=== PATIENT | female | born 2000 | race Caucasian/White ===

== ENCOUNTER → 2019-06-26 08:18 | Outpatient (CLI) | payer OTHER, SELFPAY ==
--- NOTE | 2019-06-26 08:25 | US_ITS ---
PROCEDURE: US ABDOMEN LIMITED CLINICAL INDICATION: EPIGASTRIC PAIN Nausea COMPARISON: No exams were available for comparison FINDINGS: PANCREAS: Unremarkable. No obvious mass or abnormal fluid collection. No ductal dilatation LIVER: No focal liver lesions demonstrated. Homogeneous echogenicity. No intrahepatic biliary ductal dilatation evident. There is appropriate direction of blood flow within a non dilated portal vein RIGHT KIDNEY: Unremarkable. Normal size and echogenicity. No hydronephrosis GALLBLADDER: There is a small amount of sludge in the gallbladder. There are no gallstones. There is no biliary ductal dilatation common bile duct 2.2 millimeters. IMPRESSION: Small amount of sludge in the gallbladder. Otherwise unremarkable limited abdominal ultrasound. Dictated by: Freeman Baum 06/26/2019 10:26 Electronically signed by Freeman Baum in [facility] 06/26/2019 10:26
--- NOTE | 2019-06-26 08:25 | US_ITS ---
PROCEDURE: US TRANSVAGINAL CLINICAL INDICATION: CYST OF OVARY COMPARISON: No exams were available for comparison FINDINGS: UTERUS: 6.3 x 5cmx 4cm with a combined endometrial thickness of 3mm LEFT OVARY: [id number] with a volume of 2.9ml. follicular cysts of the left ovary are noted. RIGHT OVARY: 3cmx [id number] with a volume of 6.1ml. Complicated right ovarian cyst 1.4 x 1.0 x 1.4 centimeters is noted. It contains some internal echoes. Functional cyst is favored in a patient this age. There is no abnormal adnexal mass or fluid collection. IMPRESSION: Complicated right ovarian cyst probably functional. Dictated by: Freeman Baum 06/26/2019 10:23 Electronically signed by Freeman Baum in [facility] 06/26/2019 10:23
--- NOTE | 2019-06-26 08:26 | FL_ITS ---
PROCEDURE: FL UPPER GI W AIR CLINICAL INDICATION: EPIGASTRIC PAIN COMPARISON: No exams were available for comparison TECHNIQUE: FLUOROSCOPY TIME : 1 minutes 31 seconds FINDINGS: The esophagus, stomach, and duodenum have an unremarkable appearance.There is no evidence of hiatal hernia. No ulcer or mass evident. No mucosal abnormalities apparent. There is normal peristalsis. The duodenal C-loop is nondisplaced. No gastroesophageal reflux could be elicited. IMPRESSION: Exam within normal limits. Dictated by: Freeman Baum 06/26/2019 10:12 Electronically signed by Freeman Baum in [facility] 06/26/2019 10:12
== END ==
PROVIDERS: PCP Family Medicine; Visit Provider Family Medicine
DX: R10.13 Epigastric pain (principal); N83.209 Unspecified ovarian cyst, unspecified side
CPT/HCPCS: 74246; 76705; 76830

== ENCOUNTER 2019-10-02 19:25 | Emergency (ER) | payer OTHER, SELFPAY ==
[2019-10-02 19:39] VITALS: BP 134/97; PULSE 102; RESP 20; TEMP 37.1; O2SAT 99; BMI 33.3
--- NOTE | 2019-10-02 19:50 | HMH.EDUTC ---
[facility] [place] Disposition Clinical Impression: Gastroenteritis Disposition: Home, Self-Care Condition on Discharge: Good Instructions: Viral Gastroenteritis, DI for Viral Gastroenteritis -- Adult Additional Instructions: Drink plenty of fluids. Take tylenol or ibuprofen for pain or fever. Take the medications as directed. Follow up with your regular doctor. GO TO THE ER FOR ANY WORSENING SYMPTOMS Prescriptions: Ondansetron [Zofran 4mg ODT] 4 mg PO Q8HP PRN #10 tab.rapdis PRN Reason: Nausea Transmission Status: Received by [facility] #[id number] Referrals: Derek Paiz MD [Primary Care Provider] - Time of Disposition: 20:08 Medical Decision Making - Medical Records Medical records reviewed: No: I reviewed the patient's medical records. - Dimitris Inquiry Pt receiving controlled substance: No Vital Signs: 10/02/19 19:39 10/02/19 20:09 Temperature 98.8 F 98.8 F Temperature Source Oral Pulse Rate 102 H Pulse Rate [Right Brachial] 102 H Respiratory Rate 20 20 Blood Pressure 134/97 H Blood Pressure [Right Arm] 134/97 H Blood Pressure Mean [Right Arm] 109 Blood Pressure Source [Right Arm] Automatic Cuff Blood Pressure Position [Right Arm] Sitting 02 Sat by Pulse Oximetry 99 Oxygen Delivery Method Room Air - Lab Data Lab results reviewed: Yes: I reviewed the patient's lab results. Lab Results 10/02/19 19:45: Strep Scn Rapid Clinic Negative Orders (Tests/Meds): ED MEDICATIONS Discontinued Medications Generic Name Dose Route Start Last Admin Trade Name Freq PRN Reason Stop Dose Admin Ondansetron HCl 4 mg 10/02/19 20:06 10/02/19 20:09 Zofran 4mg Odt SL 10/02/19 20:07 4 mg ONCE ONE Administration ORDERS Category Date Time Status Strep Screen Confirmation Stat Micro 10/02/19 19:[address] 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 by RN): PATIENT C/O FEVER, HEADACHE, VOMITING AND DIARRHEA X 3 DAYS. NO KNOWN SICK CONTACTS HEENT Symptoms (Recalled from RN notes): Yes Resp Symptoms (Recalled from RN notes): No Skin Symptoms (Recalled from RN notes): No MS Symptoms (Recalled from RN notes): No Functional Status (Recalled from RN notes): WNL - History of Present Illness Provider Complaint: She states that for the past 3 days she has ran a fever up to 99.6. She has also felt bad and had n/v/d. She denies any abdominal pain. - Related Data Home Medications Medication Instructions Recorded Confirmed Buspirone HCl [Buspar 10mg 10 mg PO BID 10/02/19 10/02/19 tablet] Fluoxetine HCl [Prozac] 40 mg PO DAILY 10/02/19 10/02/19 Levothyroxine Sodium 50 mcg PO DAILY 10/02/19 10/02/19 [Levothyroxine 50mcg (0.05mg) Tab] Quetiapine Fumarate [Seroquel 50 50 mg PO HS 10/02/19 10/02/19 mg Tablets] Previous Rx's Medication Instructions Recorded Ondansetron [Zofran 4mg ODT] 4 mg PO Q8HP PRN #10 tab.rapdis 10/02/19 Allergies Allergy/AdvReac Type Severity Reaction Status Date / Time No Known Allergies Allergy Verified 07/09/19 08:53 - Worker's Comp Is this a Worker's Comp case?: No [facility] History - Hepatitis A Screen Drug use history?: No High risk sexual behaviors?: No History of sexually transmitted infection?: No Currently employed?: No Childcare worker?: No Do you have indoor plumbing?: Yes Do you have electricity?: Yes Attestation statement:: This patient has been screened for Hepatitis A risk factors. I have reviewed the patient's past medical history: Yes Medical History: Reports:: Asthma, Depression Denies:: Diabetes Mellitus Type 2, Gastroesophageal Reflux Disease(GERD), Gastrointestinal Bleed, Hypertension Comment: DEPO-PROVERA Laterality Cases: Bilateral: Tonsillectomy Other Surgeries: Yes: No Previous
[2019-10-02 20:01] LABS: UTC Strep Screen (Rapid) Negative (Negative)
[2019-10-02 20:09] VITALS: BP 134/97; PULSE 102; RESP 20; TEMP 37.1; O2SAT 99
== END 2019-10-02 20:13 | disposition home or self-care (01) ==
PROVIDERS: Emergency Provider Nurse Practitioner Family; PCP Family Medicine
DX: K52.9 Noninfective gastroenteritis and colitis, unspecified (principal); F33.1 Major depressive disorder, recurrent, moderate; J45.909 Unspecified asthma, uncomplicated
CPT/HCPCS: 87880; 99201

== ENCOUNTER → 2019-10-07 14:50 | Outpatient (CLI) | payer OTHER, SELFPAY ==
[2019-10-07 15:06] LABS: Basophils # 0.1 K/mm3 (0-0.2); Basophils % 0.6 % (0.1-2.0); Eosinophils # 0.4 K/mm3 (0.0-0.4); Eosinophils % 4.3 % (0.1-12.0); Hematocrit 42.1 % (37.0-47.0); Hemoglobin 13.6 g/dL (12.2-16.2); Lymphocytes # 1.9 K/mm3 (0.7-4.5); Lymphocytes % 21.6 % (10-50); Mean Corpuscular HGB Conc 32.2 g/dL (31.8-35.4); Mean Corpuscular Hemoglobin 25.6 pg (27.0-31.2); Mean Corpuscular Volume 79.4 fl (81-99); Mean Platelet Volume 7.4 fl (7.4-10.4); Monocytes # 0.5 K/mm3 (0.1-1.0); Monocytes % 5.2 % (1.7-9.3); Neutrophils # 6.1 K/mm3 (1.8-7.8); Neutrophils % 68.4 % (37.0-80.0); Platelet Count 338 K/mm3 (142-424); White Blood Count 8.9 K/mm3 (4.8-10.8)
[2019-10-07 15:49] LABS: Chloride 106 mmol/L (98-107); Sodium 138 mmol/L (136-145)
[2019-10-07 15:50] LABS: Potassium 4.4 mmoL/L (3.5-5.1)
[2019-10-07 15:52] LABS: Alanine Aminotransferase 28 U/L (12-78); Albumin Level 4.3 g/dl (3.5-5.0); Albumin/Globulin Ratio 1.4 (1.1-1.8); Alkaline Phosphatase 130 U/L (38-126); Anion Gap 9.4 mEq/L (5-15); Aspartate Amino Transferase 34 U/L (14-36); Bilirubin,Total 0.5 mg/dl (0.2-1.3); Blood Urea Nitrogen 11 mg/dl (7-17); Carbon Dioxide 27 mmol/L (22.0-30.0); Estimated Glomerular Filt Rate 106 ml/min (>60); GFR (African American) 128 ML/MIN (>60); Total Protein,Serum 7.3 g/dl (6.3-8.2)
[2019-10-07 15:53] LABS: Calcium 9.4 mg/dl (8.4-10.2); Glucose 93 mg/dl (74-100)
[2019-10-07 16:23] LABS: Thyroid Stimulating Hormone 3.18 uIU/mL (0.465-4.68)
[2019-10-09 08:14] LABS: Iron 23 ug/dL (27-159); UIBC 352 ug/dL (131-425)
[2019-10-09 09:59] LABS: Iron Saturation 6 % (15-55); Vitamin B12 445 pg/mL (232-1245); Vitamin D 25 Hydroxy 33.1 ng/mL (30.0-100.0)
== END ==
PROVIDERS: Visit Provider Nurse Practitioner Psychiatric/Mental Health
DX: R53.81 Other malaise (principal); F32.9 Major depressive disorder, single episode, unspecified; F41.1 Generalized anxiety disorder; E66.9 Obesity, unspecified
CPT/HCPCS: 36415; 80053; 82607; 82652; 83540; 83550; 84443; 85025

== ENCOUNTER → 2020-01-05 15:24 | Outpatient (CLI) | payer OTHER, SELFPAY ==
[2020-01-05 15:47] LABS: Basophils % 0.3 % (0.1-2.0); Eosinophils # 0.4 K/mm3 (0.0-0.4); Eosinophils % 3.4 % (0.1-12.0); Hematocrit 37.6 % (37.0-47.0); Hemoglobin 12.3 g/dL (12.2-16.2); Lymphocytes # 1.7 K/mm3 (0.7-4.5); Lymphocytes % 16.1 % (10-50); Mean Corpuscular HGB Conc 32.8 g/dL (31.8-35.4); Mean Corpuscular Hemoglobin 26.6 pg (27.0-31.2); Mean Platelet Volume 7.6 fl (7.4-10.4); Monocytes # 0.5 K/mm3 (0.1-1.0); Monocytes % 4.7 % (1.7-9.3); Neutrophils # 8.1 K/mm3 (1.8-7.8); Neutrophils % 75.6 % (37.0-80.0); Platelet Count 318 K/mm3 (142-424); Red Blood Count 4.64 M/mm3 (4.20-5.40); White Blood Count 10.8 K/mm3 (4.8-10.8)
[2020-01-07 14:18] LABS: Covid-19 Nasal PCR Sendout Lex Not Detected
== END ==
PROVIDERS: PCP Nurse Practitioner; Visit Provider Nurse Practitioner
DX: Z03.818 Encounter for observation for suspected exposure to other biological agents ruled out (principal)
CPT/HCPCS: 36415; 85025; U0004

== ENCOUNTER → 2020-02-25 11:12 | Outpatient (CLI) | payer OTHER, SELFPAY ==
--- NOTE | 2020-02-25 | XR_ITS ---
PROCEDURE: XR FOOT RT MIN 3V CLINICAL INDICATION: RIGHT FOOT PAIN COMPARISON: No exams were available for comparison FINDINGS: No fracture or dislocation. No lytic or blastic change. There is normal mineralization. The joint spaces are well-preserved. No significant degenerative/arthritic changes. No erosive changes evident. Other findings:None. IMPRESSION: No acute findings. Dictated by: Cortez Glover MD 02/25/2020 11:30 Cortez Glover MD in [facility] 02/25/2020 11:30
== END ==
PROVIDERS: PCP Family Medicine; Visit Provider Family Medicine
DX: M79.671 Pain in right foot (principal)
CPT/HCPCS: 73630

== ENCOUNTER 2020-05-14 16:46 | Emergency (ER) | payer OTHER, SELFPAY ==
[2020-05-14 17:15] VITALS: BP 131/86; PULSE 97; RESP 18; TEMP 36.8; O2SAT 98; BMI 34.9
--- NOTE | 2020-05-14 17:48 | HMH.EDUTC ---
[facility] [place] Disposition Clinical Impression: UTI (urinary tract infection) Qualifiers: Urinary tract infection type: site unspecified Hematuria presence: with hematuria Qualified Code(s): N39.0 - Urinary tract infection, site not specified Disposition: Home, Self-Care Condition on Discharge: Good Instructions: Urinary Tract Infection, DI for Urinary Tract Infection (UTI) Additional Instructions: Drink plenty of fluids. Take tylenol for pain or fever. Return if you begin to have difficulty breathing. Follow up with your regular doctor. GO TO THE ER FOR ANY WORSENING SYMPTOMS The pyridium will make your urine turn orange, this is an expected side effect. It will stain your clothes if it comes into contact with them. Prescriptions: Sulfamethoxazole/Trimethoprim [Bactrim DS tablet] 1 each PO BID 7 Days #14 tab Transmission Status: Received by [facility] #[id number] Phenazopyridine HCl [Pyridium 200mg Tablet] 200 pow PO TID #6 tab Transmission Status: Received by [facility] #[id number] Referrals: Derek Paiz MD [Primary Care Provider] - Forms: Work/School Release Time of Disposition: 17:50 Medical Decision Making - Medical Records Medical records reviewed: No: I reviewed the patient's medical records. - Dimitris Inquiry Pt receiving controlled substance: No Vital Signs: 05/14/20 17:15 05/14/20 18:04 Temperature 98.2 F 98.2 F Temperature Source Oral Pulse Rate 97 H Pulse Rate [Right Brachial] 97 H Respiratory Rate 18 18 Blood Pressure 131/86 Blood Pressure [Right Arm] 131/86 Blood Pressure Mean [Right Arm] 101 Blood Pressure Source [Right Arm] Automatic Cuff Blood Pressure Position [Right Arm] Sitting 02 Sat by Pulse Oximetry 98 Oxygen Delivery Method Room Air - Lab Data Lab Results 05/14/20 17:09: Urine Color Yellow, Urine Appearance Clear, Urine pH 6.0, Ur Specific Jay 1.030, Urine Protein 1+, Urine Glucose (UA) Negative, Urine Ketones Negative, Urine Blood 1+, Urine Nitrate Negative, Urine Bilirubin Negative, Urine Urobilinogen 1, Ur Leukocyte Esterase 1+ A Orders (Tests/Meds): ORDERS Category Date Time Status Urine Culture Stat Micro 05/14/20 17:09 Received [facility] [place] HPI - General Stated complaint: possible UTI Time Seen by Provider: 05/14/20 17:48 Mode of Arrival: Ambulatory Source of Information: Patient Limitations: No Limitations Description of Symptoms (Recalled from Triage Doc. by RN): PATIENT C/O LOWER BACK PAIN, DIFFICULTY URINATING AND BURNING WITH URINATION SINCE LAST NIGHT HEENT Symptoms (Recalled from RN notes): No Resp Symptoms (Recalled from RN notes): No Skin Symptoms (Recalled from RN notes): No MS Symptoms (Recalled from RN notes): No Functional Status (Recalled from RN notes): WNL - History of Present Illness Provider Complaint: She c/o burning with urination and low back pain since yesterday. - Related Data Home Medications Medication Instructions Recorded Confirmed Levothyroxine Sodium 50 mcg PO DAILY 10/02/19 11/25/19 [Levothyroxine 50mcg (0.05mg) Tab] omeprazole 40 mg capsule,delayed 40 mg PO DAILY cap 11/25/19 11/25/19 release Previous Rx's Medication Instructions Recorded Ondansetron [Zofran 4mg ODT] 4 mg PO Q8HP PRN #10 tab.rapdis 10/02/19 norgestimate 0.25 mg-ethinyl 1 tab PO DAILY #28 tab 11/25/19 estradiol 35 mcg tablet bupropion HCl 300 mg 24 hr tablet, 300 mg PO DAILY #30 tab 04/13/20 extended release buspirone 10 mg tablet 10 mg PO BID #30 tab 04/13/20 risperidone 1 mg tablet 1 mg PO BID #60 tab 04/13/20 trazodone 100 mg tablet 100 mg PO QHS #30 tab 04/13/20 Phenazopyridine HCl [Pyridium 200 pow PO TID #6 tab 05/14/20 200mg Tablet] Sulfamethoxazole/Trimethoprim 1 each PO BID 7 Days #14 tab 05/14/20 [Bactrim DS tablet] Allergies Allergy/AdvReac Type Severity Reaction Status Date / Time No Known Allergies Allergy Verified 11/25/19 11:08 - Worker's
[2020-05-14 18:04] VITALS: BP 131/86; PULSE 97; RESP 18; TEMP 36.8; O2SAT 98
[2020-05-14 19:06] LABS: Apearance,Urine Clear (Clear); Bilirubin,Urine Negative (Negative); Blood, Urine 1+ (Negative); Color,Urine Yellow (Yellow); Glucose,Urine (UA) Negative (Negative); Ketones,Urine Negative (Negative); Protein,Urine 1+ (Negative)
[2020-05-14 19:07] LABS: UTC Leukocyte Esterase,Urine 1+ (Negative); UTC Nitrate,Urine Negative (Negative); Urobilinogen,Urine 1 EU/dl (0.2)
== END 2020-05-14 18:05 | disposition home or self-care (01) ==
PROVIDERS: Emergency Provider Nurse Practitioner Family; PCP Family Medicine
DX: N30.00 Acute cystitis without hematuria (principal); B96.20 Unspecified Escherichia coli [E. coli] as the cause of diseases classified elsewhere; F33.1 Major depressive disorder, recurrent, moderate; J45.909 Unspecified asthma, uncomplicated; Z79.899 Other long term (current) drug therapy
CPT/HCPCS: 81003; 87086; 87088; 87186; 99202; G0463

== ENCOUNTER → 2020-10-08 10:53 | Outpatient (CLI) | payer OTHER, SELFPAY ==
[2020-10-08 11:56] LABS: Basophils % 0.2 % (0.1-2.0); Eosinophils # 0.4 K/mm3 (0.0-0.4); Eosinophils % 3.2 % (0.1-12.0); Hematocrit 37.3 % (37.0-47.0); Hemoglobin 11.8 g/dL (12.2-16.2); Lymphocytes # 2.1 K/mm3 (0.7-4.5); Lymphocytes % 16.4 % (10-50); Mean Corpuscular HGB Conc 31.6 g/dL (31.8-35.4); Mean Corpuscular Hemoglobin 25.7 pg (27.0-31.2); Mean Corpuscular Volume 81.4 fl (81-99); Mean Platelet Volume 7.2 fl (7.4-10.4); Monocytes # 0.6 K/mm3 (0.1-1.0); Monocytes % 4.2 % (1.7-9.3); Neutrophils # 9.9 K/mm3 (1.8-7.8); Platelet Count 343 K/mm3 (142-424); Red Blood Count 4.58 M/mm3 (4.20-5.40); Red Cell Distribution Width 14.4 % (11.5-17.5); White Blood Count 13.1 K/mm3 (4.8-10.8)
[2020-10-08 11:58] LABS: Strep Scrn Group A (Rapid) Negative (Negative)
== END ==
PROVIDERS: PCP Family Medicine; Visit Provider Nurse Practitioner
DX: Z20.822 Contact with and (suspected) exposure to COVID-19 (principal); J02.9 Acute pharyngitis, unspecified
CPT/HCPCS: 36415; 85025; 87430; U0003

== ENCOUNTER 2021-01-22 21:36 | Emergency (ER) | payer OTHER, SELFPAY ==
[2021-01-22 23:27] VITALS: BP 00/00; PULSE 0; RESP 0; TEMP -17.7; TEMP 0
== END 2021-01-22 23:28 | disposition left against medical advice (07) ==
LOC: ER 23:20
PROVIDERS: Emergency Provider Emergency Medicine; PCP Family Medicine
DX: Z53.21 Procedure and treatment not carried out due to patient leaving prior to being seen by health care provider (principal)
CPT/HCPCS: 99211

== ENCOUNTER 2021-01-23 10:37 | Emergency (ER) | payer OTHER, SELFPAY ==
[2021-01-23 11:30] VITALS: BP 125/83; PULSE 96; RESP 18; TEMP 36.8; O2SAT 98; BMI 32.8
[2021-01-23 11:43] VITALS: BP 125/83; PULSE 96; RESP 18; TEMP 36.8; O2SAT 98; BMI 32.8
--- NOTE | 2021-01-23 11:44 | CT_ITS ---
PROCEDURE INFORMATION: Exam: CT Cervical Spine Without Contrast Exam date and time: 01/23/2021 11:44 AM Age: 20 years old Clinical indication: Injury or trauma; Fall; Blunt trauma; Patient HX: Patient fell last night, hit head. Now with headache and dizziness. TECHNIQUE: Imaging protocol: Computed tomography images of the cervical spine without contrast. Radiation optimization: All CT scans at this facility use at least one of these dose optimization techniques: automated exposure control; mA and/or kV adjustment per patient size (includes targeted exams where dose is matched to clinical indication); or iterative reconstruction. COMPARISON: CT HEAD/BRAIN WO CON 01/23/2021 11:55 AM FINDINGS: Bones/joints: There is straightening of the normal cervical lordosis, possibly positional or due to muscle spasm. No acute cervical spine fracture or traumatic malalignment. Discs/Spinal canal/Neural foramina: No significant disc protrusion. No severe spinal canal stenosis. No significant neural foraminal narrowing. Lungs: Lung apices are normal. Soft tissues: Unremarkable. IMPRESSION: No acute cervical spine fracture or traumatic malalignment.
--- NOTE | 2021-01-23 11:44 | CT_ITS ---
PROCEDURE INFORMATION: Exam: CT Head Without Contrast Exam date and time: 01/23/2021 11:44 AM Age: 20 years old Clinical indication: Injury or trauma; Fall; Blunt trauma (contusions or hematomas); Patient HX: Patient fell last night, hit head, now with dizziness and headache. TECHNIQUE: Imaging protocol: Computed tomography of the head without contrast. Radiation optimization: All CT scans at this facility use at least one of these dose optimization techniques: automated exposure control; mA and/or kV adjustment per patient size (includes targeted exams where dose is matched to clinical indication); or iterative reconstruction. COMPARISON: No relevant prior studies available. FINDINGS: Brain: No acute intracranial hemorrhage or evidence of acute ischemic infarction within constraints of limited axial single planar imaging technique. Cerebral ventricles: No ventriculomegaly. Paranasal sinuses: Moderate paranasal sinus mucosal thickening. Mastoid air cells: Visualized mastoid air cells are well aerated. Bones/joints: No acute fracture. Soft tissues: Unremarkable. IMPRESSION: 1. No acute intracranial abnormality. 2. Note that the technologist reports that this clinical site is unable to provide multiplanar reconstructions for head CTs, which reduces sensitivity in detecting small bleeds, small infarctions, and nondisplaced calvarial fractures.
--- NOTE | 2021-01-23 11:45 | PC.NURSE ---
1135- pt walked over to ER to be seen for head injury at this time.
--- NOTE | 2021-01-23 11:45 | HMH.EDUTC ---
[facility] [place] Disposition Clinical Impression: Closed head injury Qualifiers: Encounter type: initial encounter Qualified Code(s): S09.90XA - Unspecified injury of head, initial encounter Disposition: Still a Patient Condition on Discharge: Good Referrals: Derek Paiz MD [Primary Care Provider] - Time of Disposition: 11:47 Medical Decision Making - Dimitris Inquiry Pt receiving controlled substance: No Dimitris was queried for this patient: No Vital Signs: 01/23/21 11:30 Temperature 98.3 F Temperature Source Temporal Artery Scan Pulse Rate [Right Brachial] 96 H Respiratory Rate 18 Blood Pressure [Right Arm] 125/83 Blood Pressure Mean [Right Arm] 97 Blood Pressure Source [Right Arm] Automatic Cuff Blood Pressure Position [Right Arm] Sitting 02 Sat by Pulse Oximetry 98 Oxygen Delivery Method Room Air Orders (Tests/Meds): ORDERS Category Date Time Status CT cervical spine wo con Stat Cat Scan 01/23/21 11:[address] head/brain wo con Stat Cat Scan 01/23/21 11:44 Ordered Urine , HCG Qual. Stat Lab 01/23/21 11:44 Ordered [facility] [place] HPI - General Stated complaint: a/o fell head injury Time Seen by Provider: 01/23/21 11:45 Mode of Arrival: Ambulatory Source of Information: Patient Description of Symptoms (Recalled from Triage Doc. by RN): fell at work,. hit head. dizziness HEENT Symptoms (Recalled from RN notes): Yes Resp Symptoms (Recalled from RN notes): No Skin Symptoms (Recalled from RN notes): No MS Symptoms (Recalled from RN notes): No Functional Status (Recalled from RN notes): yes - History of Present Illness Provider Complaint: Patient states that she was at work last night and slipped on some water in the floor and fell backwards and hit her head and back on the concrete floor States that ever since she has been having headache and dizziness States that this morning she was still having headache and dizziness and feeling a little achy in her lower back area so she came in to get checked Denies LOC denies N/V or vision changes - Related Data Home Medications Medication Instructions Recorded Confirmed Levothyroxine Sodium 50 mcg PO DAILY 10/02/19 11/25/19 [Levothyroxine 50mcg (0.05mg) Tab] Previous Rx's Medication Instructions Recorded norgestimate 0.25 mg-ethinyl 1 tab PO DAILY #28 tab 11/25/20 estradiol 35 mcg tablet atomoxetine 60 mg capsule 60 mg PO DAILY #30 cap 01/05/21 bupropion HCl 150 mg 24 hr tablet, 150 mg PO DAILY #30 tab 01/05/21 extended release bupropion HCl 300 mg 24 hr tablet, 300 mg PO DAILY #30 tab 01/05/21 extended release buspirone 10 mg tablet 10 mg PO BID #30 tab 01/05/21 risperidone 1 mg tablet 1 mg PO BID #60 tab 01/05/21 trazodone 100 mg tablet See Rx Instructions PO QHS #60 tab 01/05/21 Allergies Allergy/AdvReac Type Severity Reaction Status Date / Time No Known Allergies Allergy Verified 11/25/20 09:04 - Worker's Comp Is this a Worker's Comp case?: Yes Is this an [facility] Worker's Comp?: No Is this a [place] Worker's Comp?: No [facility] History - Hepatitis A Screen Drug use history?: No High risk sexual behaviors?: No History of sexually transmitted infection?: No Currently employed?: Yes Childcare worker?: No Do you have indoor plumbing?: Yes Do you have electricity?: Yes Attestation statement:: This patient has been screened for Hepatitis A risk factors. I have reviewed the patient's past medical history: Yes Medical History: Reports:: Asthma, Depression Denies:: Diabetes Mellitus Type 2, Gastroesophageal Reflux Disease(GERD), Gastrointestinal Bleed, Hypertension Comment: DEPO-PROVERA Laterality Cases: Bilateral: Tonsillectomy Other Surgeries: Yes: No Previous Surgery, Other Amputation: No Fractures: No Comment: 2013- DX. [facility] ASPIRATION OF LT. PARATUBAL CYST - Social History Smoking Status: Never smoker Alcohol Intake: never Alcohol Intake Frequency:: other Substance Use Type: denies use Occupational S
[2021-01-23 11:54] LABS: Urine Pregnancy, HCG Qual. Negative (Negative)
--- NOTE | 2021-01-23 11:55 | PC.NURSE ---
pt to CT
--- NOTE | 2021-01-23 12:01 | PC.NURSE ---
pt on vapotherm at 30L and 70% SaO2 98% at this time.
--- NOTE | 2021-01-23 12:26 | HMH.EDGENADL ---
ED Disposition Clinical Impression: Post concussive syndrome Closed head injury Qualifiers: Encounter type: initial encounter Qualified Code(s): S09.90XA - Unspecified injury of head, initial encounter Disposition: Home, Self-Care Condition on Discharge: Good Instructions: DI for Postconcussion Syndrome Referrals: Derek Paiz MD [Primary Care Provider] - - Critical Care Critical Care Time: No Attestation: On 01/23/21, the high probability of a clinically significant, sudden or life threatening deterioration of the following system(s) required my full and direct attention, intervention and personal management. The time I documented below is in addition to time spent performing reported procedures but includes the following listed in this critical care notation. Medical Decision Making - Medical Records Medical records reviewed: Yes: I reviewed the patient's medical records. - Dimitris Inquiry Pt receiving controlled substance: No Vital Signs: 01/23/21 11:30 01/23/21 11:43 Temperature 98.3 F 98.3 F Temperature Source Temporal Artery Scan Temporal Artery Scan Pulse Rate [Right Brachial] 96 H 96 H Respiratory Rate 18 18 Blood Pressure [Right Arm] 125/83 125/83 Blood Pressure Mean [Right Arm] 97 97 Blood Pressure Source [Right Arm] Automatic Cuff Blood Pressure Position [Right Arm] Sitting 02 Sat by Pulse Oximetry 98 98 Oxygen Delivery Method Room Air Room Air - Lab Data Lab Results 01/23/21 11:44: Urine HCG, Qual Negative Orders (Tests/Meds): ED MEDICATIONS Discontinued Medications Generic Name Dose Route Start Last Admin Trade Name Freq PRN Reason Stop Dose Admin Acetaminophen/Butalbital/Caffeine 2 each 01/23/21 12:21 Butalb/Acetaminophen/Caffeine Tab PO 01/23/21 12:22 ONCE ONE - CT Data CT Scan: Head Time Received: 12:[address] Reviewed: Yes: I have reviewed the patient's CT results, I discussed the CT results w/the radiologist, I have viewed the radiologist's interpretation Preliminary Findings: Normal/NAD Medical Decision Narrative: 20-year-old female without significant past medical history who presents to the emergency department with complaints of headache and dizziness since a fall and striking the back of her head yesterday. Patient states that she has been having headache and dizziness that is not relieved by Tylenol and decided to get checked out in the emergency department. Patient was initially seen in urgent treatment center, but she was transferred over to the emergency department for CT imaging. On review, patient has a negative urine test, CT head shows no evidence of intracranial injury, no bleeding, no scalp hematomas, and no skull fractures. CT C-spine shows no evidence of fracture or malalignment. At this time, patient was given 2 Fioricet tabs to see if this relieved her headache. Had a discussion with patient about postconcussive syndrome and symptoms to expect for the next few weeks. Patient had some relief of her headache at this time, and has remained HDS while in the ED. She will be discharged in stable condition and is amenable to the plan. General Adult HPI - General Chief complaint: Fall Stated complaint: a/o fell head injury Time Seen by Provider: 01/23/21 11:45 Mode of Arrival: Ambulatory Source of Information: Patient Limitations: No Limitations Description of Symptoms (Recalled from ER Triage Doc. by RN): fell at work,. hit head. dizziness - History of Present Illness HPI narrative: 20-year-old female who presents to the emergency department with complaints of headache and dizziness since a fall last night at work. Patient states she works at [employer], slipped in some water and fell backwards hitting the back of her head on the tile floor. She did not lose consciousness and she does not take a blood thinner. Since then, she has had a bad headache which has been unrelieved by Tylenol. She states she has als
[2021-01-23 14:14] VITALS: BP 144/94; PULSE 114; RESP 16; TEMP 36.6; O2SAT 98
== END 2021-01-23 14:16 | disposition home or self-care (01) ==
LOC: UTC 10:42 → ER 11:40
PROVIDERS: Emergency Provider Emergency Medicine; PCP Family Medicine
DX: S09.90XA Unspecified injury of head, initial encounter (principal); W01.0XXA Fall on same level from slipping, tripping and stumbling without subsequent striking against object, initial encounter; Y92.69 Other specified industrial and construction area as the place of occurrence of the external cause; Y99.0 Civilian activity done for income or pay
CPT/HCPCS: 70450; 72125; 81025; 99282

== ENCOUNTER → 2021-03-04 15:46 | Outpatient (CLI) | payer OTHER, SELFPAY ==
[2021-03-04 16:54] LABS: Basophils % 0.3 % (0.1-2.0); Eosinophils # 0.3 K/mm3 (0.0-0.4); Eosinophils % 2.5 % (0.1-12.0); Hematocrit 37.5 % (37.0-47.0); Hemoglobin 11.6 g/dL (12.2-16.2); Lymphocytes # 1.7 K/mm3 (0.7-4.5); Lymphocytes % 12.9 % (10-50); Mean Corpuscular HGB Conc 31.1 g/dL (31.8-35.4); Mean Corpuscular Hemoglobin 26.5 pg (27.0-31.2); Mean Corpuscular Volume 85.4 fl (81-99); Mean Platelet Volume 7.9 fl (7.4-10.4); Monocytes # 0.7 K/mm3 (0.1-1.0); Neutrophils # 10.7 K/mm3 (1.8-7.8); Neutrophils % 79.3 % (37.0-80.0); Platelet Count 391 K/mm3 (142-424); Red Blood Count 4.39 M/mm3 (4.20-5.40); Red Cell Distribution Width 14.3 % (11.5-17.5); White Blood Count 13.5 K/mm3 (4.8-10.8)
== END ==
PROVIDERS: PCP Family Medicine; Visit Provider Physician Assistant
DX: Z20.822 Contact with and (suspected) exposure to COVID-19 (principal)
CPT/HCPCS: 36415; 85025; C9803; U0003; U0005

== ENCOUNTER → 2021-04-04 11:49 | Outpatient (CLI) | payer OTHER, SELFPAY ==
[2021-04-04 12:07] LABS: Adenovirus,PCR Not Detected (NotDetected); Bordetella Pertussis Not Detected (NotDetected); Chlamydophila Pneumoniae, PCR Not Detected (NotDetected); Coronavirus 19, PCR Not Detected (NotDetected); Coronavirus 229E Not Detected (NotDetected); Coronavirus NL63 Not Detected (NotDetected); Coronavirus OC43 Not Detected (NotDetected); Coronovirus HKU1,PCR Not Detected (NotDetected); Human Metapneumovirus Not Detected (NotDetected); Influenza A, PCR Not Detected (NotDetected); Influenza AH1, 2009 Not Detected (NotDetected); Influenza AH1, PCR Not Detected (NotDetected); Influenza AH3,PCR Not Detected (NotDetected); Influenza B, PCR Not Detected (NotDetected); Mycoplasma Pneumoniae, PCR Not Detected (NotDetected); Parainfluenza 1, PCR Not Detected (NotDetected); Parainfluenza 2, PCR Not Detected (NotDetected); Parainfluenza 3, PCR Not Detected (NotDetected); Parainfluenza 4, PCR Not Detected (NotDetected); Respiratory Syncytial Virus Not Detected (NotDetected)
[2021-04-04 16:51] LABS: Rhinovirus/Enterovirus Detected (NotDetected)
== END ==
PROVIDERS: PCP Family Medicine; Visit Provider Family Medicine
DX: Z20.822 Contact with and (suspected) exposure to COVID-19 (principal); B34.1 Enterovirus infection, unspecified
CPT/HCPCS: 36415; 87581; 87632; 87798; C9803; U0003; U0005

== ENCOUNTER 2021-06-07 09:34 | Emergency (ER) | payer OTHER, SELFPAY ==
[2021-06-07 10:15] VITALS: BP 121/86; PULSE 81; RESP 18; TEMP 37.2; O2SAT 97; BMI 32.4
--- NOTE | 2021-06-07 10:44 | HMH.EDUTC ---
[facility] [place] Disposition Clinical Impression: Viral syndrome Disposition: Home, Self-Care Condition on Discharge: Good Instructions: Nausea and Vomiting-Adult, DI for Nasal Congestion, DI for Cough -- Adult Additional Instructions: Drink extra fluids with and between meals. If you have difficulty drinking, try very small amounts of water or suck on ice chips. ? Avoid fruit juices, as these do not replace minerals and can actually increase diarrhea. ? Children and adults can use sports drinks to replenish electrolytes. Younger children and infants should use products formulated for children, like oral rehydration solutions. ? Eat food in small amounts and let your stomach recover. ? Get lots of rest. You may feel tired or weak. ? No greasy or fried foods for the next 24-48 hours BRAT diet Bananas Rice Apples and Forsan ? Make sure to drink plenty of liquids ? Return if needed ? Straight to ER if any life threatening symptoms ? Zofran as prescribed ? Follow up with family doctor in the next 48-72 hours if no improvement or any worsening of symptoms Prescriptions: Fluticasone Propionate [Flonase 50mcg nasal spray 16gm] 1 spr NS DAILY #1 each Transmission Status: Pending to [facility] # Ondansetron [Zofran 4mg ODT] 4 mg PO TIDP PRN #6 tab PRN Reason: Vomiting Transmission Status: Pending to [facility] # Referrals: Derek Paiz MD [Primary Care Provider] - As needed Medical Decision Making - Dimitris Inquiry Pt receiving controlled substance: No Dimitris was queried for this patient: No Vital Signs: 06/07/21 10:15 Temperature 98.9 F Temperature Source Oral Pulse Rate [Right Brachial] 81 Respiratory Rate 18 Blood Pressure [Right Arm] 121/86 Blood Pressure Mean [Right Arm] 97 Blood Pressure Source [Right Arm] Automatic Cuff Blood Pressure Position [Right Arm] Sitting 02 Sat by Pulse Oximetry 97 Oxygen Delivery Method Room Air Medical Decision Narrative: Patient states that she has taken zofran in the past without complications or reactions Patient denies state on period at this time [facility] HPI - General Stated complaint: vomiting, h/a Time Seen by Provider: 06/07/21 10:44 Mode of Arrival: Ambulatory Source of Information: Patient Limitations: No Limitations Description of Symptoms (Recalled from Triage Doc. by RN): PATIENT C/O VOMITING, HEADACHE, SNEEZING, AND COUGH X 3 DAYS HEENT Symptoms (Recalled from RN notes): Yes Resp Symptoms (Recalled from RN notes): Yes Skin Symptoms (Recalled from RN notes): No MS Symptoms (Recalled from RN notes): No Functional Status (Recalled from RN notes): WNL - History of Present Illness Provider Complaint: Patient state that she has been having n/v sneezing and cough for several days State that she was at a concert this weekend and unsure if she may have been exposed to COVID - Related Data Home Medications Medication Instructions Recorded Confirmed Levothyroxine Sodium 50 mcg PO DAILY 10/02/19 04/07/21 [Levothyroxine 50mcg (0.05mg) Tab] norgestimate-ethinyl estradioL 1 tab PO DAILY 06/07/21 06/07/21 [Previfem Tablet] Previous Rx's Medication Instructions Recorded trazodone 100 mg tablet See Rx Instructions PO QHS #60 tab 06/02/21 vilazodone 10 mg (7)-20 mg (23) See Rx Instructions PO PER PKG DIR 06/02/21 tablets in a titration pack #30 tab Fluticasone Propionate [Flonase 1 spr NS DAILY #1 each 06/07/21 50mcg nasal spray 16gm] Ondansetron [Zofran 4mg ODT] 4 mg PO TIDP PRN #6 tab 06/07/21 Allergies Allergy/AdvReac Type Severity Reaction Status Date / Time No Known Allergies Allergy Verified 04/07/21 17:33 - Worker's Comp Is this a Worker's Comp case?: No [facility] History - Hepatitis A Screen Drug use history?: No High risk sexual behaviors?: No History of sexually transmitted infection?: No Currently employed?: No Childcare worker?: No Do you have indoor plumbing?: Yes Do you have elect
[2021-06-07 11:28] VITALS: BP 121/86; PULSE 81; RESP 18; TEMP 37.2; O2SAT 97
== END 2021-06-07 11:47 | disposition home or self-care (01) ==
PROVIDERS: Emergency Provider Nurse Practitioner; PCP Family Medicine
DX: B34.9 Viral infection, unspecified (principal); R11.0 Nausea; Z20.822 Contact with and (suspected) exposure to COVID-19
CPT/HCPCS: 99202; C9803; G0463; U0003; U0005

== ENCOUNTER 2021-06-16 14:21 | Emergency (ER) | payer OTHER, SELFPAY ==
[2021-06-16 15:01] VITALS: BP 141/86; PULSE 102; RESP 18; TEMP 36.8; O2SAT 97; BMI 35.9
--- NOTE | 2021-06-16 15:03 | XR_ITS ---
FINAL REPORT CLINICAL HISTORY: ANTERIOR KNEE PAIN, SHIELDED COMPARISON: September 11, 2017 FINDINGS: Three views of the right knee were obtained. The bony alignment is normal. The joint spaces are preserved. There is no evidence of joint effusion. There is a calcification adjacent to the medial femoral condyle of uncertain etiology. Avulsion cannot be excluded. There is a small sclerotic focus in the distal femur and that may represent an old healed fibrous cortical defect. IMPRESSION: Calcification of uncertain etiology adjacent to the medial femoral condyle. Avulsion cannot be excluded. Reviewed, Interpreted and Dictated by Ricki Faust III, MD Transcribed by Kayden Dunham Authenticated by Ricki Faust III, MD on 06/16/2021 04:27:29 PM [facility]
--- NOTE | 2021-06-16 15:32 | HMH.EDUTC ---
[facility] [place] Disposition Clinical Impression: Right knee pain Qualifiers: Chronicity: unspecified Qualified Code(s): M25.561 - Pain in right knee Disposition: Home, Self-Care Condition on Discharge: Good Instructions: DI for Leg Pain Additional Instructions: *weight bearing as tolerated *RICE, Rest the extremity, Ice 15-20 minutes 3-4 times daily, Compress- wear the matthew wrap as discussed as much as possible to help reduce swelling and pain, Elevate the extremity when at rest *Matthew wrap/Knee immobilizer is for support and help control swelling, use it except in the shower. Be sure that is not to tight but not to loose either *Elevate when resting *Naproxen as prescribed as needed for pain an inflammation. If need something more can take Tylenol in between doses of Ibuprofen to help Immediately follow up with your family doctor for new or worsening of symptoms, or no noticeable improvement over the next 3-5 days Call Orthopedic office for appointment Return if needed Prescriptions: Naproxen [Naproxen 500mg tab] 500 mg PO BID PRN #20 tab PRN Reason: Moderate Pain Transmission Status: Pending to [facility] #[id number] Referrals: Provider,MD Alex [Primary Care Provider] - As needed Tay Sevilla JR, MD [Physician] - (call office for appointment) Forms: Work/School Release Time of Disposition: 16:47 Medical Decision Making - Dimitris Inquiry Pt receiving controlled substance: No Dimitris was queried for this patient: No Vital Signs: 06/16/21 15:01 Temperature 98.3 F Temperature Source Oral Pulse Rate [Left] 102 H Respiratory Rate 18 Blood Pressure [Right Arm] 141/86 H Blood Pressure Mean [Right Arm] 104 02 Sat by Pulse Oximetry 97 - Radiology Data #1 Image(s): Knee Image Reviewed: Yes I reviewed the patient's radiology image, Yes I have reviewed radiologist's interpretation possible avulsion fracture or calcification noted will have patient follow up IMPRESSION: Calcification of uncertain etiology adjacent to the medial femoral condyle. Avulsion cannot be excluded. Medical Decision Narrative: noticed patient had been prescribed indomethacin by PCP for pain in right lower leg in Dec Spoke with patient and she advised that she forgot that visit but no longer has any of that medication [facility] [place] HPI - General Stated complaint: left leg pain, no accident Time Seen by Provider: 06/16/21 15:32 Mode of Arrival: Ambulatory Source of Information: Patient Limitations: No Limitations Description of Symptoms (Recalled from Triage Doc. by RN): pt c/o R leg pain from the knee down since this am. HEENT Symptoms (Recalled from RN notes): No Resp Symptoms (Recalled from RN notes): No Skin Symptoms (Recalled from RN notes): No MS Symptoms (Recalled from RN notes): Yes Functional Status (Recalled from RN notes): wnl - History of Present Illness Provider Complaint: Patient state that she works 12hrs a day on her feet at the [employer] and for the last couple of days she has been having pain in her left knee and upper part of lower leg just below knee Denies any known injury Denies falling or twisting knee States that today she was still having pain so she came in - Related Data Home Medications Medication Instructions Recorded Confirmed Levothyroxine Sodium 50 mcg PO DAILY 10/02/19 04/07/21 [Levothyroxine 50mcg (0.05mg) Tab] norgestimate-ethinyl estradioL 1 tab PO DAILY 06/07/21 06/07/21 [Previfem Tablet] Previous Rx's Medication Instructions Recorded trazodone 100 mg tablet See Rx Instructions PO QHS #60 tab 06/02/21 vilazodone 10 mg (7)-20 mg (23) See Rx Instructions PO PER PKG DIR 06/02/21 tablets in a titration pack #30 tab Fluticasone Propionate [Flonase 1 spr NS DAILY #1 each 06/07/21 50mcg nasal spray 16gm] Ondansetron [Zofran 4mg ODT] 4 mg PO TIDP PRN #6 tab 06/07/21 Naproxen [Naproxen 500mg tab] 500 mg PO BID PRN #20 tab 06/16/21 Allergies Allergy/AdvReac Type Severity
[2021-06-16 16:54] VITALS: BP 141/86; PULSE 102; RESP 18; TEMP 36.8
== END 2021-06-16 16:57 | disposition home or self-care (01) ==
PROVIDERS: Emergency Provider Nurse Practitioner
DX: M25.561 Pain in right knee (principal)
CPT/HCPCS: 29505; 73562; 99202; G0463

== ENCOUNTER 2021-06-26 11:23 | Emergency (ER) | payer OTHER, SELFPAY ==
[2021-06-26 11:53] VITALS: BP 148/87; PULSE 98; RESP 18; TEMP 36.7; O2SAT 100; BMI 38.2
--- NOTE | 2021-06-26 11:56 | HMH.EDGENADL ---
ED Disposition Clinical Impression: Right knee pain Qualifiers: Chronicity: acute Qualified Code(s): M25.561 - Pain in right knee Disposition: Home, Self-Care Condition on Discharge: Good Additional Instructions: Continue ibuprofen for pain. Continue wearing knee brace. Call Dr. Petersen tomorrow for further care and for further instructions on work restrictions. Referrals: Derek Paiz MD [Primary Care Provider] - Forms: Work/School Release - Critical Care Critical Care Time: No Attestation: On 06/26/21, the high probability of a clinically significant, sudden or life threatening deterioration of the following system(s) required my full and direct attention, intervention and personal management. The time I documented below is in addition to time spent performing reported procedures but includes the following listed in this critical care notation. Medical Decision Making - Medical Records Medical records reviewed: Yes: I reviewed the patient's medical records. MR Comment: Reviewed urgent treatment center note and x-ray report from 06/16/2021. See x-ray report below. - Dimitris Inquiry Pt receiving controlled substance: No Vital Signs: 06/26/21 11:53 Temperature 98.1 F Temperature Source Oral Pulse Rate [Left Radial] 98 H Respiratory Rate 18 Blood Pressure [Right Arm] 148/87 H Blood Pressure Mean [Right Arm] 107 02 Sat by Pulse Oximetry 100 Orders (Tests/Meds): ED MEDICATIONS Discontinued Medications Generic Name Dose Route Start Last Admin Trade Name Freq PRN Reason Stop Dose Admin Ketorolac Tromethamine 60 mg 06/26/21 11:55 Ketorolac 60mg/2ml Vial IM 06/26/21 11:56 ONCE ONE Procedure(s): XR knee RT 3V Accession Number(s): [id number] cc: Ricki Faust MD; Provider,Referral MD~ FINAL REPORT CLINICAL HISTORY: ANTERIOR KNEE PAIN, SHIELDED COMPARISON: September 11, 2017 FINDINGS: Three views of the right knee were obtained. The bony alignment is normal. The joint spaces are preserved. There is no evidence of joint effusion. There is a calcification adjacent to the medial femoral condyle of uncertain etiology. Avulsion cannot be excluded. There is a small sclerotic focus in the distal femur and that may represent an old healed fibrous cortical defect. IMPRESSION: Calcification of uncertain etiology adjacent to the medial femoral condyle. Avulsion cannot be excluded. Reviewed, Interpreted and Dictated by Ricki Faust III, MD Transcribed by Kayden Dunham Authenticated by Ricki Faust III, MD on 06/16/2021 04:27:29 PM [facility] HPI - General Stated complaint: right knee pain, no accident Time Seen by Provider: 06/26/21 11:46 - History of Present Illness HPI narrative: Complains of right knee pain. She says that she has a torn tendon in her right knee. She was seen here in the urgent treatment center on 06/16/2021 for right knee pain without any reported injury. She had an x-ray that shows a questionable avulsion. She has followed up with orthopedics, Dr. Petersen, saw him Sunday06/21/21. She has been scheduled for physical therapy and has an MRI scheduled for this week. She is supposed to follow-up with the orthopedist after her MRI scan is completed. She says she is continuing to work and is on her feet for 12 hours. Because of that she says she has increased pain in her right knee medially. No new injury. She states that she does not feel like she can continue to perform her usual job because of the fact that she has to be on her feet for 12 hours and do heavy lifting. No relief with Tylenol/Ibuprofen since pain increased. - Related Data Home Medications Medication Instructions Recorded Confirmed Levothyroxine Sodium 50 mcg PO DAILY 10/02/19 04/07/21 [Levothyroxine 50mcg (0.05mg) Tab] norgestimate-ethinyl estradioL 1 tab PO DAILY 06/07/21 06/07/21 [Previfem Tablet] Previous Rx's Medicati
[2021-06-26 12:50] VITALS: BP 130/68; PULSE 89; RESP 17; TEMP 36.7; O2SAT 100
== END 2021-06-26 12:52 | disposition home or self-care (01) ==
PROVIDERS: Emergency Provider Emergency Medicine; PCP Family Medicine
DX: M25.561 Pain in right knee (principal); J45.909 Unspecified asthma, uncomplicated; F33.1 Major depressive disorder, recurrent, moderate
CPT/HCPCS: 96372; 99281; 99283

== ENCOUNTER 2021-06-27 13:09 | Outpatient (RCR) | payer OTHER, SELFPAY | END 2021-06-27 13:10 | disposition home or self-care (01) | LOC: PT 13:09 | PROVIDERS: Visit Provider Orthopaedic Surgery Adult Reconstructive Orthopaedic Surgery | DX: M25.561 Pain in right knee (principal) | CPT/HCPCS: 97163 ==

== ENCOUNTER → 2021-06-29 09:49 | Outpatient (CLI) | payer OTHER, SELFPAY ==
--- NOTE | 2021-06-29 09:53 | MR_ITS ---
FINAL REPORT CLINICAL HISTORY: PAIN IN RT KNEE, RIGHT LATERAL KNEE PAIN X2 WEEKS., FINDINGS: Multi planar MR imaging was performed of the right knee. The anterior and posterior cruciate ligaments are intact. The quadriceps and patellar tendons are intact. The medial and lateral menisci are intact without evidence of tear. The medial and lateral collateral ligaments appear intact. The medial and lateral retinacula appear intact. There is no evidence of bone marrow edema or osteochondral defect. There is abnormal fluid signal identified along the lateral aspect of the medial femoral condyle. This measures approximately 3.2 cm in craniocaudal dimension and 2.5 cm in AP dimension. Findings are concerning for a ganglion cyst. No evidence of soft tissue inflammatory reaction. IMPRESSION: 1. No evidence of significant internal derangement. 2. Probable ganglion cyst at the lateral aspect of the medial femoral condyle. Please correlate with clinical symptoms. Reviewed, Interpreted and Dictated by Chan Baker MD Transcribed by FELISHA Kramer Authenticated by Chan Baker MD on 06/29/2021 01:13:03 PM [facility]
== END ==
PROVIDERS: PCP Family Medicine; Visit Provider Orthopaedic Surgery Adult Reconstructive Orthopaedic Surgery
DX: M25.561 Pain in right knee (principal)
CPT/HCPCS: 73721

== ENCOUNTER 2021-07-23 10:43 | Emergency (ER) | payer OTHER, SELFPAY ==
[2021-07-23 10:50] VITALS: BP 132/85; PULSE 89; RESP 18; TEMP 36.7; O2SAT 97; BMI 34.1
[2021-07-23 11:13] LABS: UTC Influenza A Antigen Negative (Negative); UTC Influenza B Antigen Negative (Negative)
--- NOTE | 2021-07-23 11:20 | HMH.EDUTC ---
[facility] Disposition Clinical Impression: Allergic rhinitis Qualifiers: Allergic rhinitis trigger: unspecified Allergic rhinitis seasonality: unspecified Qualified Code(s): J30.9 - Allergic rhinitis, unspecified Disposition: Home, Self-Care Condition on Discharge: Good Instructions: DI for Allergic Rhinitis, Allergic Rhinitis Additional Instructions: * No sign of bacterial infection. Likely viral. Virus can take 7-14 days to run their course *Monitor Temp, Over the counter Motrin or Tylenol as directed/as needed Tylenol every 4 hours and Motrin every 6 hours (as long as your family doctor has told you that you can take it) for fever or pain. and straight to ER if unable to lower temp less than 101.0 after medication given *Warm salt water gargles may help to soothe the throat *Throat Lozenges *Warm fluids like tea with honey may help to soothe the throat *Sleep elevated *Humidifier/Vaporizer *Flonase 2 sprays in each nostril daily but be aware that it may take 2-3 days before you notice improvement Follow up IMMEDIATELY for new or worsening symptoms or no Noticeable improvement over the next 48-72 hours. 911 for difficulty breathing or swallowing Prescriptions: Fluticasone Propionate [Flonase 50mcg nasal spray 16gm] 1 spr NS DAILY #1 each Transmission Status: Pending to [facility] # methylPREDNISolone [Medrol 4mg tab] 4 mg PO DIRECTED #21 tab Transmission Status: Pending to [facility] # Referrals: Derek Paiz MD [Primary Care Provider] - As needed Time of Disposition: 11:33 Medical Decision Making - Dimitris Inquiry Pt receiving controlled substance: No Dimitris was queried for this patient: No Vital Signs: 07/23/21 10:50 Temperature 98.1 F Temperature Source Oral Pulse Rate [Right Brachial] 89 Respiratory Rate 18 Blood Pressure [Right Arm] 132/85 Blood Pressure Mean [Right Arm] 100 Blood Pressure Source [Right Arm] Automatic Cuff Blood Pressure Position [Right Arm] Sitting 02 Sat by Pulse Oximetry 97 Oxygen Delivery Method Room Air - Lab Data Lab results reviewed: Yes: I reviewed the patient's lab results. Lab Results 07/23/21 11:02: Influenza Type A Ag Negative, Influenza Type B Ag Negative [facility] HPI - General Stated complaint: runny nose, h/a, cough, vomiting Time Seen by Provider: 07/23/21 11:21 Mode of Arrival: Ambulatory Source of Information: Patient Limitations: No Limitations Description of Symptoms (Recalled from Triage Doc. by RN): PATIENT C/O RUNNY NOSE, COUGH, LIGHT-HEADED, HEADACHE, AND VOMITING X 2 DAYS HEENT Symptoms (Recalled from RN notes): Yes Resp Symptoms (Recalled from RN notes): Yes Skin Symptoms (Recalled from RN notes): No MS Symptoms (Recalled from RN notes): No Functional Status (Recalled from RN notes): WNL - History of Present Illness Provider Complaint: Patient states that she has been having headache, feeling of fullness in ears,sinus congestion and at times she felt a little light headedness over the last few days, States that she was still feeling bad so she came in to get checked for flu and get checked out - Related Data Home Medications Medication Instructions Recorded Confirmed Levothyroxine Sodium 50 mcg PO DAILY 10/02/19 07/07/21 [Levothyroxine 50mcg (0.05mg) Tab] norgestimate-ethinyl estradioL 1 tab PO DAILY 06/07/21 07/07/21 [Previfem Tablet] Previous Rx's Medication Instructions Recorded Fluticasone Propionate [Flonase 1 spr NS DAILY #1 each 06/07/21 50mcg nasal spray 16gm] Ondansetron [Zofran 4mg ODT] 4 mg PO TIDP PRN #6 tab 06/07/21 Naproxen [Naproxen 500mg tab] 500 mg PO BID PRN #20 tab 06/16/21 cariprazine 1.5 mg capsule 1.5 mg PO DAILY #30 cap 06/17/21 trazodone 100 mg tablet See Rx Instructions PO QHS #60 tab 07/13/21 Fluticasone Propionate [Flonase 1 spr NS DAILY #1 each 07/23/21 50mcg nasal spray 16gm] methylPREDNISolone [Medrol 4mg 4 mg PO DIRECTED #21 tab 03
[2021-07-23 11:31] VITALS: BP 132/85; PULSE 89; RESP 18; TEMP 36.7; O2SAT 97
== END 2021-07-23 11:38 | disposition home or self-care (01) ==
PROVIDERS: Emergency Provider Nurse Practitioner; PCP Family Medicine
DX: J30.9 Allergic rhinitis, unspecified (principal)
CPT/HCPCS: 87804; 99212; G0463

== ENCOUNTER → 2021-09-09 10:45 | Outpatient (CLI) | payer OTHER, SELFPAY ==
--- NOTE | 2021-09-09 10:49 | MR_ITS ---
FINAL REPORT CLINICAL HISTORY: PAIN IN LT KNEE. NKI. POSTERIOR PAIN. FINDINGS: Multi planar MR imaging was performed of the left knee. The anterior and posterior cruciate ligaments are intact. There is mild pes anserine bursitis seen on images 18 and 19 of series 3. The quadriceps and patellar tendons are intact. The medial and lateral menisci are intact without evidence of tear. The medial and lateral collateral ligaments appear intact. The medial and lateral retinacula appear intact. There is no evidence of bone marrow edema or osteochondral defect. A small popliteal cyst is seen which extends superiorly to the posterior to the distal femoral diaphysis measuring 8 cm. IMPRESSION: Mild pes anserine bursitis. Popliteal cyst with superior extension measuring 8 cm. Reviewed, Interpreted and Dictated by Chan Baker MD Transcribed by Radha Palomino Authenticated by Chan Baker MD on 09/09/2021 04:03:31 PM [facility]
== END ==
PROVIDERS: PCP Family Medicine; Visit Provider Orthopaedic Surgery Adult Reconstructive Orthopaedic Surgery
DX: M25.562 Pain in left knee (principal)
CPT/HCPCS: 73721

== ENCOUNTER 2021-09-21 13:15 | Emergency (ER) | payer OTHER, SELFPAY ==
[2021-09-21 14:40] VITALS: BP 131/89; PULSE 89; RESP 17; TEMP 37; O2SAT 99; BMI 32.9
--- NOTE | 2021-09-21 14:58 | HMH.EDUTC ---
[facility] [place] Disposition Clinical Impression: Urticaria Disposition: Home, Self-Care Condition on Discharge: Good Instructions: Hives, DI for Hives Additional Instructions: Look around and see if you may see what you may be having a reaction too Over the counter Benadryl may help with itching Return if needed Straight to ER if any life threatening sympotms Prescriptions: methylPREDNISolone [Medrol 4mg tab] 4 mg PO DIRECTED #21 tab Transmission Status: Received by [email or web address] #[id number] Referrals: Derek Paiz MD [Primary Care Provider] - As needed Time of Disposition: 15:36 Medical Decision Making - Dimitris Inquiry Pt receiving controlled substance: No Dimitris was queried for this patient: No Vital Signs: 09/21/21 14:40 Temperature 98.6 F Temperature Source Oral Pulse Rate [Right Brachial] 89 Respiratory Rate 17 Blood Pressure [Right Arm] 131/89 Blood Pressure Mean [Right Arm] 103 Blood Pressure Source [Right Arm] Automatic Cuff Blood Pressure Position [Right Arm] Sitting 02 Sat by Pulse Oximetry 99 Oxygen Delivery Method Room Air - Lab Data Lab results reviewed: Yes: I reviewed the patient's lab results. Lab Results 09/21/21 15:15: [facility] Negative Orders (Tests/Meds): ED MEDICATIONS Discontinued Medications Generic Name Dose Route Start Last Admin Trade Name Alpesh PRN Reason Stop Dose Admin Methylprednisolone Sodium Succinate 125 mg 09/21/21 15:12 09/21/21 15:17 Methylprednisolone Sod Succ 125mg Vial IM 09/21/21 15:13 125 mg ONCE ONE Administration [facility] [place] HPI - General Stated complaint: rash Time Seen by Provider: 09/21/21 14:58 Mode of Arrival: Ambulatory Source of Information: Patient Limitations: No Limitations Description of Symptoms (Recalled from Triage Doc. by RN): PATIENT C/O ITCHY BUMPS ALL OVER BODY SINCE THIS MORNING HEENT Symptoms (Recalled from RN notes): No Resp Symptoms (Recalled from RN notes): No Skin Symptoms (Recalled from RN notes): Yes MS Symptoms (Recalled from RN notes): No Functional Status (Recalled from RN notes): WNL - History of Present Illness Provider Complaint: Patient states that she woke up this morning with welps all over her arms, back and body States that she is itching all over States that she took a benadryl and it helped a little but rash is still there - Related Data Home Medications Medication Instructions Recorded Confirmed Levothyroxine Sodium 50 mcg PO DAILY 10/02/19 08/12/21 [Levothyroxine 50mcg (0.05mg) Tab] norgestimate-ethinyl estradioL 1 tab PO DAILY 06/07/21 08/12/21 [Previfem Tablet] Previous Rx's Medication Instructions Recorded Fluticasone Propionate [Flonase 1 spr NS DAILY #1 each 06/07/21 50mcg nasal spray 16gm] Ondansetron [Zofran 4mg ODT] 4 mg PO TIDP PRN #6 tab 06/07/21 Naproxen [Naproxen 500mg tab] 500 mg PO BID PRN #20 tab 06/16/21 Fluticasone Propionate [Flonase 1 spr NS DAILY #1 each 07/23/21 50mcg nasal spray 16gm] methylPREDNISolone [Medrol 4mg 4 mg PO DIRECTED #21 tab 07/23/21 tab] cariprazine 1.5 mg capsule 1.5 mg PO DAILY #30 cap 08/12/21 desvenlafaxine succinate 50 mg 50 mg PO DAILY #30 tab 08/12/21 tablet,extended release 24 hr trazodone 100 mg tablet See Rx Instructions PO QHS #60 tab 08/12/21 methylPREDNISolone [Medrol 4mg 4 mg PO DIRECTED #21 tab 09/21/21 tab] Allergies Allergy/AdvReac Type Severity Reaction Status Date / Time No Known Allergies Allergy Verified 08/12/21 10:55 - Worker's Comp Is this a Worker's Comp case?: No [facility] History - Hepatitis A Screen Attestation statement:: This patient has been screened for Hepatitis A risk factors. I have reviewed the patient's past medical history: Yes Medical History: Reports:: Asthma, Depression Denies:: Diabetes Mellitus Type 2, Gastroesophageal Reflux Disease(GERD), Gastrointestinal Bleed, Hypertension Comment: DEPO-PROVERA Laterality Cases:
[2021-09-21 15:16] LABS: UTC Pregnancy Test, Urine Negative (Negative)
[2021-09-21 15:37] VITALS: BP 131/89; PULSE 89; RESP 17; TEMP 37; O2SAT 99
== END 2021-09-21 15:42 | disposition home or self-care (01) ==
PROVIDERS: Emergency Provider Nurse Practitioner; PCP Family Medicine
DX: L50.0 Allergic urticaria (principal); J45.909 Unspecified asthma, uncomplicated
CPT/HCPCS: 81025; 96372; 99212; G0463

== ENCOUNTER → 2021-10-21 12:09 | Outpatient (CLI) | payer OTHER, SELFPAY ==
--- NOTE | 2021-10-21 12:19 | ECG_ITS ---
APPROVED REPORT Exam: Resting ECG HR:112 bpm ECG Measurements Heart Rate 112 AXES [place] 121 P 37 QRSd 85 QRS 90 QT 324 T -11 QTc 390 Conclusion SINUS TACHYCARDIA NONSPECIFIC T-WAVE ABNORMALITY ABNORMAL ECG UNCONFIRMED REPORT Electronically signed by : Jose Luis Lozoya MD 10/21/2021 15:33:01
[2021-10-21 16:49] LABS: D-Dimer 0.83 ug/mL (0.0-0.5)
== END ==
LOC: RAD 12:11 → RT 12:13
PROVIDERS: PCP Physician Assistant; Visit Provider Physician Assistant
DX: R00.0 Tachycardia, unspecified (principal); R94.31 Abnormal electrocardiogram [ECG] [EKG]
CPT/HCPCS: 36415; 85378; 93005

== ENCOUNTER → 2021-10-26 15:19 | Outpatient (CLI) | payer OTHER, SELFPAY | PROVIDERS: PCP Family Medicine; Visit Provider Family Medicine | DX: R42 Dizziness and giddiness (principal) | CPT/HCPCS: 93225; 93226 ==

== ENCOUNTER → 2021-10-31 13:24 | Outpatient (CLI) | payer OTHER, SELFPAY ==
--- NOTE | 2021-10-31 13:27 | CA_ITS ---
APPROVED REPORT EXAM: Comprehensive 2D, Doppler, and color-flow Echocardiogram Manager Operations Research: Meghann Baird, ANATOLY, RVS Ht: 5 ft 5 in Wt: 200lbs BSA: 1.98 BP: 119/83 mmHg Indications: Dizziness 2D Dimensions Aortic Root 2.57 cm LA Volume 44.10 mL Left Atrium 3.37 cm LA Volume Index 22.30 mL/m2 (M/F) 16-34 LVOT 1.86 cm (M/F) 1.5-2.5 M-Mode Dimensions RVDd 1.36 cm (0.9-2.6) LA Diam 3.09 cm (1.9-4.0) LVDd 4.94 cm (3.5-5.7) Ao Diam 2.62 cm (2.0-3.7) LVDs 2.93 cm (3.5-5.7) IVSd 0.75 cm (0.6-1.1) PWd 0.79 cm (0.6-1.1) EF (Teich) 71.30% EPSs 0.61 cm FS 40.70% EDV (Teich) 115.00 mL TAPSE 1.90 (<1.7) ESV (Teich) 33.00 mL LV Diastology E Decel Time 187.00 (160-240 msec) E/A Ratio 1.45 MED E' 12.60 (< 7 cm/sec) MED A' 8.40 cm/s E'/MED E' Ratio 7.79 (>14) LAT E' 18.20 (<10 cm/sec) LAT A' 7.40 cm/s E/LAT E' Ratio 5.40 (>14) Aortic Valve LVOT Max 114.00 (70-110 cm/s) LVOT VTI 21.63 cm AoV Peak Igor. 146.00 (50-130 cm/s) AO Peak GR. 8.50 mmHg AO Mean GR. 4.20 (<5 mmHg) AO VTI 26.31 (18-25 cm) GOOD (VTI) 2.23 (2.5-4.5 cm2) Mitral Valve MV A Velocity 68.00 (40-130 cm/s) E/A Ratio 1.45 MV Decel. Time 187.00 (160-240 ms) MV Mean Gr. 2.10 (<2mmHg) MV PHT 53.00 ms Pulmonary Valve PV Peak Velocity 114.00 (50-150 cm/s) Tricuspid Valve TR P. Velocity 209.00 cm/s RAP Estimate 10.00 mmHg RVSP 27.40 mmHg Left Ventricle Left atrium is normal size, left ventricle is normal size, there is no concentric left ventricular hypertrophy, estimated ejection fraction 55% with no regional wall motion abnormality, diastolic parameters are within normal range. Right Ventricle Right atrium and right ventricle are normal size and contractility. Aortic Valve Aortic valve is grossly normal, there is no aortic stenosis or aortic insufficiency. Mitral Valve Mitral valve grossly normal, there is trace mitral regurgitation. Tricuspid Valve Tricuspid valve grossly normal, there is trace tricuspid regurgitation, tricuspid regurgitation jet velocity is inadequate for calculation of the right ventricular systolic pressure. Pulmonic Valve Pulmonic valve is poorly visualized. Great Vessels Aortic root is normal size. Inferior vena cava normal 7 normal inspiratory collapse. Pericardium No significant pericardial effusion noted. Conclusion 1. Normal left ventricular size preserved left ventricular systolic function, estimated ejection fraction 55% with no regional wall motion abnormality, diastolic parameters are within normal range. 2. Trace mitral and tricuspid regurgitation. 3. No significant pericardial effusion. 4. Inferior vena cava normal size and normal inspiratory collapse. Electronically signed by : Leonel Wills MD 10/31/2021 14:25:14
== END ==
PROVIDERS: PCP Family Medicine; Visit Provider Family Medicine
DX: R42 Dizziness and giddiness (principal)
CPT/HCPCS: 93306

== ENCOUNTER 2021-12-05 12:13 | Emergency (ER) | payer OTHER, SELFPAY ==
[2021-12-05 12:20] VITALS: BP 151/101; PULSE 127; RESP 20; TEMP 36.8; O2SAT 96; BMI 33.3
--- NOTE | 2021-12-05 12:47 | HMH.EDUTC ---
[facility] [place] Clinical Impression: Elevated blood pressure reading Disposition: Home, Self-Care Condition on Discharge: Good Instructions: High Blood Pressure (Hypertension) (Alternative Therapy) Additional Instructions: Make sure to keep your appointment tomorrow with your PCp as scheduled Go straight to ER if any life threatening symptoms Take your Medication as prescribed Return if needed Referrals: Derek Paiz MD [Primary Care Provider] - 12/06/21 11:15 am Forms: Work/School Release Medical Decision Making - Dimitris Inquiry Pt receiving controlled substance: No Dimitris was queried for this patient: No Vital Signs: 12/05/21 12:20 12/05/21 13:07 Temperature 98.3 F 98.3 F Temperature Source Oral Pulse Rate 98 H Pulse Rate [Right Brachial] 127 H Respiratory Rate 20 20 Blood Pressure 139/95 H Blood Pressure [Right Arm] 151/101 H Blood Pressure Mean [Right Arm] 117 Blood Pressure Source [Right Arm] Automatic Cuff Blood Pressure Position [Right Arm] Sitting 02 Sat by Pulse Oximetry 96 Oxygen Delivery Method Room Air Medical Decision Narrative: Patient states that she is feeling better now but was sent home from work so she came in to get a note States that earlier today she felt like her heart was beating fast and her blood pressure was elevated at work so they sent her home States that she is feeling better now Discussed with patient and recommended transfer to the ED for further work up and evaluation and patient declined States that she had Echo and cardiac work up a few weeks ago by her PCP and she would follow back up with them instead Patient educated on risks but still declined transfer Called PCP office and patient was given appointment for tomorrow 12/06/21 for 1115 and patient accepted appointment again recommended transfer and patient declined rechecked bp and hr now 135/94 and hr 96 [facility] [place] - General Stated complaint: high bp, heart rate Time Seen by Provider: 12/05/21 12:47 Mode of Arrival: Ambulatory Source of Information: Patient Limitations: No Limitations Description of Symptoms (Recalled from Triage Doc. by RN): PATIENT STATES SHE WAS SENT HOME FROM WORK TODAY WITH ELEVATED HEART RATE AND BLOOD PRESSURE. SHE REPORTS IT HAS BEEN GOING ON SINCE SUNDAY AND IS C/O HEADACHE AND RED SPOTS IN HER VISION HEENT Symptoms (Recalled from RN notes): Yes Resp Symptoms (Recalled from RN notes): No Skin Symptoms (Recalled from RN notes): No MS Symptoms (Recalled from RN notes): No Functional Status (Recalled from RN notes): WNL - History of Present Illness Provider Complaint: Patient states that this morning she seen a few spots in front of her eyes and then it went away and she was at work and felt like her heart started racing and felt like it was beating hard and they checked her blood pressure and it was up and sent her home States that she didnt think she felt anxious or anything States that she came in to get checked but she is feeling better now and no longer seeing spots - Related Data Home Medications Medication Instructions Recorded Confirmed Levothyroxine Sodium 50 mcg PO DAILY 10/02/19 11/28/21 [Levothyroxine 50mcg (0.05mg) Tab] Previous Rx's Medication Instructions Recorded Naproxen [Naproxen 500mg tab] 500 mg PO BID PRN #20 tab 06/16/21 trazodone 100 mg tablet See Rx Instructions PO QHS #60 tab 10/04/21 cariprazine 1.5 mg capsule 1.5 mg PO DAILY #30 cap 10/20/21 desvenlafaxine succinate 50 mg 50 mg PO DAILY #30 tab 10/20/21 tablet,extended release 24 hr norgestimate 0.25 mg-ethinyl 1 tab PO DAILY #28 tab 11/28/21 estradiol 35 mcg tablet Allergies Allergy/AdvReac Type Severity Reaction Status Date / Time No Known Allergies Allergy Verified 11/28/21 09:28 - Worker's Comp Is this a Worker's Comp case?: No H History - Hepatitis A Screen Attestation statement:: This patient has been screened for Hepatitis A risk factors. I h
[2021-12-05 13:07] VITALS: BP 139/95; PULSE 98; RESP 20; TEMP 36.8; O2SAT 96
== END 2021-12-05 13:10 | disposition home or self-care (01) ==
PROVIDERS: Emergency Provider Nurse Practitioner; PCP Family Medicine
DX: R03.0 Elevated blood-pressure reading, without diagnosis of hypertension (principal); R51.9 Headache, unspecified; H53.8 Other visual disturbances
CPT/HCPCS: 99212; G0463

== ENCOUNTER → 2021-12-15 11:31 | Outpatient (CLI) | payer OTHER, SELFPAY | PROVIDERS: PCP Family Medicine; Visit Provider Physician Assistant | DX: R06.00 Dyspnea, unspecified (principal); R07.9 Chest pain, unspecified; R00.2 Palpitations; R42 Dizziness and giddiness; R94.31 Abnormal electrocardiogram [ECG] [EKG] | CPT/HCPCS: 93270 ==

== ENCOUNTER → 2021-12-21 09:09 | Outpatient (CLI) | payer OTHER, SELFPAY ==
--- NOTE | 2021-12-21 | CA_ITS ---
APPROVED REPORT Exam: Pharmacologic Technologist: Radha Cobb, Ht: 5 ft 5 in Wt: 211 lbs BSA: 2.02 m2 HR: 89 bpm BP: 110/70 mmHg Rhythm: NSR, ST ABN IN LEAD III ONLY Medical History Medications: Levothyroxine,,,,, Metoprolol,,,,, Trazadone,,,,, Estradiol,,,,, Desvenlafaxine,,,,, Cariprazine,,,,, Norgestimate-ETHINYL,,,,, Allergies: No known drug allergies Stress Test Details Test: Austen HR Resting HR: 96 bpm Max Heart Rate (APMHR): 197.901039 bpm Max HR Achieved: 160 bpm Target HR (85% APMHR): 167.290603 bpm % of APMHR: 81.22 Recovery HR: 99 bpm BP Resting BP: 110/70 mmHg Max BP: 120/64 mmHg Recovery BP: 113.0/61.0 mmHg ECG Resting ECG: NSR, ST ABN IN LEAD III ONLY Clinical Exercise duration: 06:34 min Highest Stage Achieved: Exercise capacity: 7.0 METs Stress ECG Conclusion PT EXERCISED 6 MINUTES INTO STAGE III OF AUSTEN PROTOCOL. MAX HR: 160 % OF PM: 81% MAX BP 120/64 METS: 7.0 TEST STOPPED DUE TO: SOA PT HAD DYSPNEA, C/O HEART BEATING OUT OF CHEST. NO TYPICAL ANGINA. WITHIN NORMAL ST RESPONSE TO EXERCISE. NORMAL GXT TO HR ACHIEVED (81% OF PM) POOR EXERCISE TOLERANCE FOR AGE. GXT ONLY (NO IMAGING) Test Summary REST . . . . . . . Standing REST . . . . . . . Sitting REST 03:46 0.0 0.0 96 . 110/ 70 . . Stage 1 01:00 10.0 1.7 115 . . . . Stage 1 02:00 10.0 1.7 120 . . . . Stage 1 03:00 10.0 1.7 121 . 120/ 64 . . Stage 2 01:00 12.0 2.5 136 . . . . Stage 2 02:00 12.0 2.5 139 . . . . Stage 2 03:00 12.0 2.5 140 . . . . Stage 3 00:34 14.0 3.4 160 . . . Stop exercise at 06:34 RECOVERY 01:00 0.0 0.0 138 . . . . RECOVERY 02:00 0.0 0.0 120 . . . . RECOVERY 03:00 0.0 0.0 108 . 116/ 72 . . RECOVERY 04:00 0.0 0.0 102 . 114/ 70 . . RECOVERY 05:00 0.0 0.0 99 . 113/ 61 . . RECOVERY 05:19 0.0 0.0 100 . 113/ 61 . . Electronically signed by : Leonel Wills MD 12/22/2021 06:40:41
== END ==
PROVIDERS: PCP Family Medicine; Visit Provider Physician Assistant
DX: R07.9 Chest pain, unspecified (principal); R06.00 Dyspnea, unspecified; R42 Dizziness and giddiness; R94.31 Abnormal electrocardiogram [ECG] [EKG]
CPT/HCPCS: 93017

== ENCOUNTER 2022-01-10 19:34 | Emergency (ER) | payer OTHER, SELFPAY ==
[2022-01-10 19:58] LABS: Coronavirus 19, PCR Not Detected (NotDetected); Influenza A, PCR Not Detected (NotDetected); Influenza B, PCR Not Detected (NotDetected)
[2022-01-10 20:04] VITALS: BP 133/97; PULSE 103; RESP 16; TEMP 36.9; O2SAT 100; BMI 33.7
--- NOTE | 2022-01-10 20:09 | XR_ITS ---
PROCEDURE INFORMATION: Exam: XR Chest Exam date and time: 01/10/2022 8:10 PM Age: 21 years old Clinical indication: Sternal or substernal pain; Additional info: Chest pain TECHNIQUE: Imaging protocol: Radiologic exam of the chest. Views: 2 views. COMPARISON: CT CERVICAL SPINE WO CON 01/23/2021 11:58 AM FINDINGS: Lungs: Unremarkable. No consolidation. Pleural spaces: Unremarkable. No pleural effusion. No pneumothorax. Heart/Mediastinum: Unremarkable. No cardiomegaly. Bones/joints: Unremarkable. IMPRESSION: No acute findings.
[2022-01-10 20:20] LABS: Microscopic, Urine URINE MICROSCOPIC (MICROSCOPIC)
[2022-01-10 20:26] LABS: Appearance,Urine CLEAR (Clear); Bilirubin,Urine Negative (Negative); Blood, Urine Negative (Negative); Color,Urine YELLOW (Yellow); Glucose,Urine (UA) Negative (Negative); Ketones,Urine Negative (Negative); Leukocyte Esterase,Urine 1+ (Negative); Nitrate,Urine Negative (Negative); Protein,Urine Negative (Negative); Urine Pregnancy, HCG Qual. Negative (Negative)
[2022-01-10 20:41] LABS: Basophils # 0.1 K/mm3 (0-0.2); Basophils % 0.6 % (0.1-2.0); Eosinophils # 0.5 K/mm3 (0.0-0.4); Eosinophils % 3.3 % (0.1-12.0); Hematocrit 38.6 % (37.0-47.0); Hemoglobin 12.1 g/dL (12.2-16.2); Lymphocytes # 2.6 K/mm3 (0.7-4.5); Lymphocytes % 18.8 % (10-50); Mean Corpuscular HGB Conc 31.2 g/dL (31.8-35.4); Mean Corpuscular Hemoglobin 25.9 pg (27.0-31.2); Monocytes # 0.7 K/mm3 (0.1-1.0); Monocytes % 5.5 % (1.7-9.3); Neutrophils # 9.8 K/mm3 (1.8-7.8); Neutrophils % 71.9 % (37.0-80.0); Platelet Count 397 K/mm3 (142-424); Red Blood Count 4.65 M/mm3 (4.20-5.40); Red Cell Distribution Width 14.9 % (11.5-17.5); White Blood Count 13.6 K/mm3 (4.8-10.8)
[2022-01-10 20:44] LABS: Alanine Aminotransferase 18 U/L (12-78); Albumin Level 3.9 g/dl (3.5-5.0); Albumin/Globulin Ratio 1.1 (1.1-1.8); Alkaline Phosphatase 92 U/L (38-126); Anion Gap 7.6 mEq/L (5-15); Aspartate Amino Transferase 26 U/L (14-36); Blood Urea Nitrogen 9 mg/dl (7-17); Calcium 8.7 mg/dl (8.4-10.2); Carbon Dioxide 28 mmol/L (22.0-30.0); Chloride 106 mmol/L (98-107); Creatinine Clearance Estimated 182 mL/min (50-200); Estimated Glomerular Filt Rate 104 ml/min (>60); GFR (African American) 125 ML/MIN (>60); Globulin 3.6 g/dL (1.3-3.2); Glucose 103 mg/dl (74-100); Potassium 3.6 mmoL/L (3.5-5.1); Sodium 138 mmol/L (136-145); Total Protein,Serum 7.5 g/dl (6.3-8.2)
--- NOTE | 2022-01-10 20:46 | HMH.EDURI ---
Discharge Plan Disposition Patient Disposition: Home, Self-Care Prescriptions Prescriptions: New levofloxacin 500 mg tablet 500 mg PO DAILY Qty: 5 0RF No Action norgestimate-ethinyl estradiol 0.25-35 mg-mcg tablet 1 tab PO DAILY Qty: 28 12RF bisoprolol fumarate 5 mg tablet 5 mg PO DAILY trazodone 100 mg tablet See Rx Instructions PO QHS Rx Instructions: take 1-2 tablets PO every day at bedtime; desvenlafaxine succinate [Pristiq] 50 mg tablet extended release 24 hr 50 mg PO DAILY Vraylar 1.5 mg capsule 1.5 mg PO DAILY levothyroxine 50 MCG tablet 50 mcg PO DAILY Referrals Follow up/Referrals: Derek Paiz MD [Primary Care Provider] - See instructions Clinical Impressions Clinical Impression: URI (upper respiratory infection), UTI (urinary tract infection) Instructions Patient Instructions: DI for Urinary Tract Infection (UTI), DI for Viral Upper Respiratory Infection -- Adult Discharge ED Provider: Samson Barrett URI/Sore Throat HPI General Chief Complaint: Upper Respiratory Infection Stated Complaint: 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 by RN): HEADACHE, COUGH, CONGESTION, NAUSEA AND VOMITING X 2 DAYS. 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 3 days Complaint: cough and nasal congestion Onset (ago): day(s) Duration: intermittent Severity: moderate Relieving factors: OTC cold medicine Able to tolerate fluids by mouth: Yes Context: sick contacts Associated symptoms: denies other symptoms Treatments prior to arrival: cold medicine Related Data Home Medications Medication Instructions Recorded Confirmed levothyroxine 50 mcg tablet 50 mcg PO DAILY THYROID 10/02/19 01/10/22 bisoprolol fumarate 5 mg tablet 5 mg PO DAILY Hypertension 01/10/22 01/10/22 cariprazine 1.5 mg capsule 1.5 mg PO DAILY Depression 01/10/22 01/10/22 (Vraylar) desvenlafaxine succinate 50 mg 50 mg PO DAILY Depression 01/10/22 01/10/22 tablet,extended release 24 hr (Pristiq) trazodone 100 mg tablet See Rx Instructions PO QHS Insomnia 01/10/22 01/10/22 Previous Rx's Medication Instructions Recorded norgestimate 0.25 mg-ethinyl 1 tab PO DAILY control #28 11/28/21 estradiol 35 mcg tablet tabs levofloxacin 500 mg tablet 500 mg PO DAILY #5 tabs 01/10/22 Allergies Allergy/AdvReac Type Severity Reaction Status Date / Time No Known Allergies Allergy Verified 12/26/21 13:49 PFSH PFS Medical History (Updated 01/10/22 @ 22:08 by Samson Barrett MD) Abnormal electrocardiography Chest pain Dizziness Dyspnea Palpitations Social History Smoking Status: Never smoker second hand exposure: No alcohol intake: never substance use type: denies use current occupational status: other Travel in the last 8 weeks: Inside the [place] number of children: 0 ROS Obtained: Yes All systems reviewed & no additional complaints except as documented Constitutional Constitutional: Denies fever(s) Eyes Eyes: Reports system reviewed and no additional complaints, except as documented ENT Ears, Nose, Mouth, and Throat: Reports as per HPI, Reports nasal congestion and Reports sore throat Cardiovascular Cardiovascular: Reports as per HPI and Denies dyspnea Respiratory Respiratory: Denies dyspnea Physical Exam General General appearance: alert and obese Head Head exam: normocephalic Eye Eye exam: Present PERRL and EOMI; Absent scleral icterus ENT ENT exam: Present mucous membranes moist Expanded ENT Exam TM/Canal exam: Bilateral TM: effusion Throat exam: Present tonsillar erythema Neck Neck exam: Present full ROM and trachea midline Respiratory Respiratory exam: Present other (few rhonchi
[2022-01-10 20:49] LABS: Bilirubin,Total < 0.1 mg/dl (0.2-1.3); C-Reactive Protein 37.1 mg/L (0-4)
[2022-01-10 20:55] LABS: Bacteria,Urine 1+ /lpf
[2022-01-10 21:07] LABS: Erythrocyte Sedimentation Rate 34 mm/hr (0-20)
[2022-01-10 21:12] LABS: Procalcitonin < 0.030 ng/mL (0.0-2.0)
--- NOTE | 2022-01-10 21:18 | PC.NURSE ---
NO FURTHER NAUSEA OR VOMITING AT THIS TIME.
--- NOTE | 2022-01-10 21:51 | PC.NURSE ---
PT UPDATED. NO ACUTE DISTRESS NOTED. PT DENIES ABDOMINAL PAIN. PT REPORTS THAT NAUSEA HAS RESOLVED. NO ACUTE DISTRESS NOTED.
[2022-01-10 22:15] VITALS: BP 124/78; PULSE 87; RESP 20; TEMP 37.1; O2SAT 98
== END 2022-01-10 22:29 | disposition home or self-care (01) ==
PROVIDERS: Emergency Provider Emergency Medicine; PCP Family Medicine
DX: N39.0 Urinary tract infection, site not specified (principal); J06.9 Acute upper respiratory infection, unspecified; R07.9 Chest pain, unspecified; R00.2 Palpitations; R94.31 Abnormal electrocardiogram [ECG] [EKG]; R06.00 Dyspnea, unspecified; Z20.822 Contact with and (suspected) exposure to COVID-19; R11.10 Vomiting, unspecified; R51.9 Headache, unspecified; E66.9 Obesity, unspecified; Z79.899 Other long term (current) drug therapy; Z68.33 Body mass index [BMI] 33.0-33.9, adult
CPT/HCPCS: 71046; 80053; 81001; 81025; 84145; 85025; 85651; 86140; 87086; 87186; 96361; 96374; 96375; 99285; C9803; J0696; J2405; U0003; U0005

== ENCOUNTER → 2022-03-06 09:21 | Outpatient (CLI) | payer OTHER, SELFPAY ==
--- NOTE | 2022-03-06 09:25 | XR_ITS ---
FINAL REPORT CLINICAL HISTORY: foot pain FINDINGS: LEFT FOOT Three views of the left foot demonstrate no acute fracture or dislocation. The visualized joint spaces are normally aligned. The soft tissues are unremarkable. IMPRESSION: No acute bony abnormality. Reviewed, Interpreted and Dictated by Ricki Faust III, MD Transcribed by Samantha Freire Authenticated and [facility]
--- NOTE | 2022-03-06 09:25 | XR_ITS ---
FINAL REPORT CLINICAL HISTORY: foot pain COMPARISON: February 25, 2020 FINDINGS: RIGHT FOOT Three views of the right foot were obtained. There is no acute fracture or dislocation. The joint spaces are intact. There is no soft tissue abnormality. IMPRESSION: No acute bony abnormality. Reviewed, Interpreted and Dictated by Ricki Faust III, MD Transcribed by Samantha Freire Authenticated and [facility]
== END ==
PROVIDERS: PCP Family Medicine; Visit Provider Podiatrist
DX: M79.671 Pain in right foot (principal); M79.672 Pain in left foot
CPT/HCPCS: 73630

== ENCOUNTER → 2022-03-07 11:33 | Outpatient (CLI) | payer OTHER, SELFPAY ==
--- NOTE | 2022-03-07 11:43 | XR_ITS ---
FINAL REPORT CLINICAL HISTORY: r/o stress fracture..pain FINDINGS: Left tibia-fibula Two views were obtained. There is no acute fracture or dislocation. There is no periosteal reaction. The visualized joint spaces are preserved. There is no acute soft tissue abnormality. IMPRESSION: No acute bony abnormality. If indicated, MRI could better evaluate. Reviewed, Interpreted and Dictated by Ricki Faust III, MD Transcribed by Kayden Dunham Authenticated and [facility]
--- NOTE | 2022-03-07 11:43 | XR_ITS ---
FINAL REPORT CLINICAL HISTORY: r/o stress fracture..pain FINDINGS: Right tibia-fibula Two views were obtained. There is no acute fracture or dislocation. There is no periosteal reaction. The visualized joint spaces are preserved. There is no acute soft tissue abnormality. IMPRESSION: No acute bony abnormality. If indicated, MRI could better evaluate. Reviewed, Interpreted and Dictated by Ricki Faust III, MD Transcribed by Kayden Dunham Authenticated and . [facility]
== END ==
PROVIDERS: PCP Family Medicine; Visit Provider Podiatrist
DX: M79.605 Pain in left leg (principal); M79.604 Pain in right leg
CPT/HCPCS: 73590

== ENCOUNTER 2022-03-14 14:49 | Emergency (ER) | payer OTHER, SELFPAY ==
[2022-03-14] VITALS (7 sets, daily range): BP systolic 118–147; BP diastolic 73–99; PULSE 88–120; RESP 14–24; TEMP 36.8–37.1; O2SAT 100; BMI 33.3
--- NOTE | 2022-03-14 14:47 | ECG_ITS ---
APPROVED REPORT Exam: Resting ECG HR:117 bpm ECG Measurements Heart Rate 117 AXES LA 133 P 43 QRSd 86 QRS 54 QT 318 T 3 QTc 387 Conclusion SINUS TACHYCARDIA NONSPECIFIC T-WAVE ABNORMALITY ABNORMAL RHYTHM ECG UNCONFIRMED REPORT Electronically signed by : Jose Luis Lozoya MD 03/14/2022 18:06:22
--- NOTE | 2022-03-14 14:54 | XR_ITS ---
FINAL REPORT CLINICAL HISTORY: cp COMPARISON: January 2022 FINDINGS: The heart size is normal. The mediastinum is within normal limits. The lungs are underinflated. There is atelectasis at the right lung base. There is no pleural effusion. There is no pneumothorax. The bony thorax is intact. IMPRESSION: Right basilar atelectasis. Reviewed, Interpreted and Dictated by Chan Baker MD Transcribed by Kayden Dunham Authenticated and . [facility]
--- NOTE | 2022-03-14 14:55 | HMH.EDCP ---
Discharge Plan Disposition Patient Disposition: Home, Self-Care Condition: Good Prescriptions Prescriptions: No Action bisoprolol fumarate 5 mg tablet 2.5 mg PO DAILY Qty: 90 3RF norgestimate-ethinyl estradiol 0.25-35 mg-mcg tablet 1 tab PO DAILY Qty: 28 12RF meloxicam 7.5 mg tablet 7.5 mg PO ONCE Qty: 30 0RF methylprednisolone 4 mg tablets,dose pack 4 mg PO PER PKG DIR Qty: 21 0RF Vraylar 1.5 mg capsule 1.5 mg PO DAILY Qty: 30 1RF trazodone 100 mg tablet See Rx Instructions PO QHS Qty: 30 1RF Rx Instructions: take 1-2 tablets PO every day at bedtime; levothyroxine 50 MCG tablet 50 mcg PO DAILY Referrals Follow up/Referrals: Derek Paiz MD [Primary Care Provider] - See instructions Activity Restrictions/Add. 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, h/o tachycardia on bb med Onset (ago): minute(s) Duration: constant and intermittent Activity at onset: during exertion Pain location: substernal Severity: mild Quality: dull Pain radiation: none Relieving factors: nothing Exacerbating factors: exertion Treatments prior to or on arrival for Cardiac Chest Pain: none Related Data Home Medications Medication Instructions Recorded Confirmed levothyroxine 50 mcg tablet 50 mcg PO DAILY THYROID 10/02/19 03/07/22 Previous Rx's Medication Instructions Recorded norgestimate 0.25 mg-ethinyl 1 tab PO DAILY control #28 11/28/21 estradiol 35 mcg tablet tabs bisoprolol fumarate 5 mg tablet 2.5 mg PO DAILY Hypertension #90 02/16/22 tabs meloxicam 7.5 mg tablet 7.5 mg PO ONCE pain #30 tabs 03/07/22 methylprednisolone 4 mg tablets in 4 mg PO PER PKG DIR Pain, swelling 03/07/22 a dose pack #21 tabs cariprazine 1.5 mg capsule 1.5 mg PO DAILY Depression #30 caps 03/10/22 (Vraylar) trazodone 100 mg tablet See Rx Instructions PO QHS 03/10/22 Insomnia #30 tabs Allergies Allergy/AdvReac Type Severity Reaction Status Date / Time No Known Allergies Allergy Verified 03/07/22 10:34 PFSH [facility] Medical History Abnormal electrocardiography Chest pain Dizziness Dyspnea Palpitations Surgical History History of cholecystectomy [place] teeth extracted Social History Smoking Status: Smoker, status unknown second hand exposure: No alcohol intake: never substance use type: denies use current occupational status: other Travel in the last 8 weeks: Inside the [place] number of children: 0 ROS Obtained: Yes All systems reviewed & no additional complaints except as documented Physical Exam General General appearance: alert and in no apparent distress Head Head exam: atraumatic and normocephalic Eye Eye exam: Present normal appearance, PERRL and EOMI ENT ENT exam: Present normal exam and normal oropharynx Neck Neck exam: Present normal inspection and full ROM Chest Chest inspection: Present normal inspection and symmetric chest wall rise Respiratory Respiratory exam: Present normal lung sounds bilaterally; Absent respiratory distress or wheezes Cardiovascular Cardiovascular exam: Present normal rhythm and tachycardia; Absent diastolic murmur Abdominal Exam Abdominal exam: Present soft; Absent distention or tenderness Extremities Exam Extremities exam: Present normal inspection, full ROM and normal
[2022-03-14 15:52] LABS: Basophils # 0.1 K/mm3 (0-0.2); Basophils % 0.8 % (0.1-2.0); Eosinophils # 0.5 K/mm3 (0.0-0.4); Eosinophils % 4.1 % (0.1-12.0); Hematocrit 41.8 % (37.0-47.0); Hemoglobin 13.1 g/dL (12.2-16.2); Lymphocytes # 2.4 K/mm3 (0.7-4.5); Lymphocytes % 19.2 % (10-50); Mean Corpuscular HGB Conc 31.5 g/dL (31.8-35.4); Mean Corpuscular Hemoglobin 26.1 pg (27.0-31.2); Mean Corpuscular Volume 82.8 fl (81-99); Mean Platelet Volume 7.9 fl (7.4-10.4); Monocytes # 0.5 K/mm3 (0.1-1.0); Monocytes % 4.2 % (1.7-9.3); Neutrophils % 71.8 % (37.0-80.0); Platelet Count 381 K/mm3 (142-424); Red Blood Count 5.04 M/mm3 (4.20-5.40); Red Cell Distribution Width 14.8 % (11.5-17.5); White Blood Count 12.6 K/mm3 (4.8-10.8)
[2022-03-14 16:04] LABS: Chloride 100 mmol/L (98-107); Potassium 3.9 mmoL/L (3.5-5.1); Sodium 138 mmol/L (136-145)
[2022-03-14 16:07] LABS: Alanine Aminotransferase 23 U/L (12-78); Albumin/Globulin Ratio 1.3 (1.1-1.8); Alkaline Phosphatase 88 U/L (38-126); Anion Gap 13.9 mEq/L (5-15); Aspartate Amino Transferase 36 U/L (14-36); Bilirubin,Total 0.2 mg/dl (0.2-1.3); Blood Urea Nitrogen 11 mg/dl (7-17); Carbon Dioxide 28 mmol/L (22.0-30.0); Creatinine Clearance Estimated 209 mL/min (50-200); Estimated Glomerular Filt Rate 124 ml/min (>60); GFR (African American) 150 ML/MIN (>60); Globulin 3.1 g/dL (1.3-3.2); Total Protein,Serum 7.1 g/dl (6.3-8.2)
[2022-03-14 16:08] LABS: Calcium 9.2 mg/dl (8.4-10.2); Glucose 93 mg/dl (74-100)
[2022-03-14 16:33] LABS: Troponin I < 0.01 ng/ml (0.00-0.034)
--- NOTE | 2022-03-14 16:34 | PC.NURSE ---
rounded on pt at this time. Updated on POC. No new needs and mother at bedside
--- NOTE | 2022-03-14 16:41 | CT_ITS ---
PROCEDURE INFORMATION: Exam: CTA Chest With Contrast Exam date and time: 03/14/2022 6:18 PM Age: 21 years old Clinical indication: Shortness of breath; Additional info: Hypoxia, elev ddimer TECHNIQUE: Imaging protocol: Computed tomographic angiography of the chest with contrast. 3D rendering (Not supervised by radiologist): MIP and/or 3D reconstructed images were created by the technologist. Radiation optimization: All CT scans at this facility use at least one of these dose optimization techniques: automated exposure control; mA and/or kV adjustment per patient size (includes targeted exams where dose is matched to clinical indication); or iterative reconstruction. Contrast material: ISOVUE; Contrast volume: 70 ml; Contrast route: INTRAVENOUS (IV); COMPARISON: CR XR CHEST PORTABLE 03/14/2022 3:13 PM FINDINGS: Pulmonary arteries: Normal. No pulmonary emboli. Aorta: Unremarkable. No aortic aneurysm. No aortic dissection. Lungs: Unremarkable. No consolidation. No masses. Pleural spaces: Unremarkable. No pneumothorax. No pleural effusion. Heart: Unremarkable. No cardiomegaly. No pericardial effusion. Lymph nodes: Unremarkable. No enlarged lymph nodes. Bones/joints: Unremarkable. No acute fracture. Soft tissues: Unremarkable. IMPRESSION: 1. No pulmonary embolus. 2. No airspace or interstitial lung disease
[2022-03-14 16:53] LABS: D-Dimer 0.54 ug/mL (0.0-0.5)
[2022-03-14 16:55] LABS: HCG Qualitative, Serum Negative (Negative)
--- NOTE | 2022-03-14 17:00 | PC.NURSE ---
notified rad of negative test
--- NOTE | 2022-03-14 17:32 | PC.NURSE ---
PT returned from CT. Updated her on POC
--- NOTE | 2022-03-14 17:55 | PC.NURSE ---
Rounded on pt at this time. Updated pt and mother we were waiting on CT results. No new needs at this time
== END 2022-03-14 18:30 | disposition home or self-care (01) ==
PROVIDERS: Emergency Provider Emergency Medicine; PCP Family Medicine
DX: R07.9 Chest pain, unspecified (principal); R00.2 Palpitations; R42 Dizziness and giddiness; R94.31 Abnormal electrocardiogram [ECG] [EKG]; R00.0 Tachycardia, unspecified; I10 Essential (primary) hypertension; G47.00 Insomnia, unspecified; E07.9 Disorder of thyroid, unspecified; F17.200 Nicotine dependence, unspecified, uncomplicated; Z79.52 Long term (current) use of systemic steroids; Z79.899 Other long term (current) drug therapy
CPT/HCPCS: 36415; 71045; 71275; 80053; 84484; 84703; 85025; 85378; 93005; 99285; Q9967

== ENCOUNTER 2022-04-27 08:58 | Day surgery (SDC) | payer OTHER, SELFPAY ==
[2022-04-27] VITALS (8 sets, daily range): BP systolic 132–148; BP diastolic 75–93; PULSE 76–100; RESP 16–20; O2SAT 96–100; BMI 35.4
--- NOTE | 2022-04-27 07:11 | IR_ITS ---
APPROVED REPORT Patient Location: Outpatient Chief Development Officer: FARIBA Velasquez RT (R) PROCEDURES Left heart catheterization Left ventriculogram Selective coronary angiogram INDICATION Coronary artery disease based on abnormal CCTA with a 55% stenosis in the circumflex artery, Recalcitrant angina pectoris Informed consent was obtained prior to the procedure. COMPLICATIONS None Estimated Blood Loss: Less than 10 mls TECHNIQUE One percent lidocaine used to anesthetize the right anterior aspect of the wrist. The right radial artery was accessed via the Seldinger technique. A 6 Citizen Of [place] sheath was placed in the right radial artery. 2.5 mg of verapamil, 800 mcg of nitroglycerin, 1mg Lidocaine and 5000 U Heparin were given through the arterial sheath. The papa catheter was also used to perform left heart catheterization, left ventriculogram and selective coronary angiogram. At the end of the procedure the sheath was removed good hemostasis was achieved using Traclet band, patient was transferred to the postop holding area in stable condition. ANGIOGRAPHIC RESULTS The left main artery Normal The left anterior descending artery Normal The circumflex artery Codominant normal The right coronary artery Codominant normal The TREJO ventriculogram reveals Not performed The left ventricular end-diastolic pressure Not measured IMPRESSION Normal coronary arteries False positive coronary CTA PLAN 1. Evaluation of noncardiac chest pain Electronically signed by : Mat Mcnamara MD 04/27/2022 14:55:36
[2022-04-27 09:19] LABS: Basophils # 0.1 K/mm3 (0-0.2); Basophils % 0.7 % (0.1-2.0); Eosinophils # 0.5 K/mm3 (0.0-0.4); Eosinophils % 4.6 % (0.1-12.0); Hematocrit 41.8 % (37.0-47.0); Hemoglobin 12.9 g/dL (12.2-16.2); Lymphocytes # 2.1 K/mm3 (0.7-4.5); Lymphocytes % 19.4 % (10-50); Mean Corpuscular HGB Conc 30.8 g/dL (31.8-35.4); Mean Corpuscular Hemoglobin 25.9 pg (27.0-31.2); Mean Platelet Volume 7.7 fl (7.4-10.4); Monocytes # 0.5 K/mm3 (0.1-1.0); Monocytes % 4.1 % (1.7-9.3); Neutrophils # 7.8 K/mm3 (1.8-7.8); Neutrophils % 71.3 % (37.0-80.0); Platelet Count 398 K/mm3 (142-424); Red Blood Count 4.98 M/mm3 (4.20-5.40); Red Cell Distribution Width 14.4 % (11.5-17.5); White Blood Count 10.9 K/mm3 (4.8-10.8)
[2022-04-27 09:29] LABS: Chloride 105 mmol/L (98-107); Sodium 137 mmol/L (136-145)
[2022-04-27 09:30] LABS: Potassium 4.4 mmoL/L (3.5-5.1)
[2022-04-27 09:32] LABS: Alanine Aminotransferase 20 U/L (12-78); Albumin Level 4.1 g/dl (3.5-5.0); Alkaline Phosphatase 103 U/L (38-126); Anion Gap 8.4 mEq/L (5-15); Aspartate Amino Transferase 30 U/L (14-36); Bilirubin,Direct 0.1 mg/dl (0.0-0.4); Bilirubin,Indirect 0.1 mg/dL (0.0-0.9); Bilirubin,Total 0.2 mg/dl (0.2-1.3); Bilirubin,Unconjugated 0.2 mg/dL (0.0-1.1); Blood Urea Nitrogen 12 mg/dl (7-17); Calcium 9.3 mg/dl (8.4-10.2); Carbon Dioxide 28 mmol/L (22.0-30.0); Cholesterol 180 mg/dl (140-200); Creatinine Clearance Estimated 189 mL/min (50-200); Estimated Glomerular Filt Rate 103 ml/min (>60); GFR (African American) 124 ML/MIN (>60); Glucose 88 mg/dl (74-100); Total Protein,Serum 7.4 g/dl (6.3-8.2); Triglycerides 113 mg/dl (30-150); VLDL Cholesterol 23 mg/dL (0-40)
[2022-04-27 09:33] LABS: Chol/HDL Ratio 2.6 (1-3.5); HDL Cholesterol 70 mg/dl (40-60); Magnesium 1.9 mg/dl (1.6-2.3)
[2022-04-27 09:42] LABS: HCG Qualitative, Serum Negative (Negative)
[2022-04-27 09:43] LABS: Direct LDL Cholesterol 69.64 mg/dL (100-129)
[2022-04-27 10:00] LABS: Free T4 (Free Thyroxine) 0.67 ng/dl (0.78-2.19)
[2022-04-27 10:05] LABS: Thyroid Stimulating Hormone 8.63 uIU/mL (0.465-4.68)
== END 2022-04-27 14:42 | disposition home or self-care (01) ==
PROVIDERS: PCP Family Medicine; Visit Provider Internal Medicine
DX: R93.1 Abnormal findings on diagnostic imaging of heart and coronary circulation (principal); R07.9 Chest pain, unspecified; Z79.899 Other long term (current) drug therapy; R00.2 Palpitations; R06.09 Other forms of dyspnea; R55 Syncope and collapse
CPT/HCPCS: 36415; 80048; 80061; 80076; 83735; 84439; 84443; 84703; 85025; 93458; 99152; C1725; C1769; J1644; Q9967

== ENCOUNTER → 2022-05-05 13:09 | Outpatient (CLI) | payer OTHER, SELFPAY ==
--- NOTE | 2022-05-05 13:09 | CA_ITS ---
FINAL REPORT CLINICAL HISTORY: RT WRIST PAIN,S/P HEART CATH WITH RT WRIST ACCESS ON 04/27/22 FINDINGS: Spectral and Doppler waveform evaluations of the right wrist was performed. Spectral analysis was performed. The radial artery is patent. There is no evidence of pseudoaneurysm. IMPRESSION: No evidence of pseudoaneurysm. Reviewed, Interpreted and Dictated by Ricki Faust III, MD Transcribed by Basia Valera Authenticated and [facility]
== END ==
PROVIDERS: PCP Family Medicine; Visit Provider Internal Medicine
DX: M79.601 Pain in right arm (principal)
CPT/HCPCS: 93931

== ENCOUNTER 2022-05-14 02:11 | Emergency (ER) | payer OTHER, SELFPAY ==
[2022-05-14 02:12] VITALS: BP 153/97; PULSE 120; RESP 16; TEMP 36.9; O2SAT 99; BMI 43.2
--- NOTE | 2022-05-14 02:23 | CT_ITS ---
PROCEDURE INFORMATION: Exam: CT Abdomen And Pelvis With Contrast Exam date and time: 05/14/2022 2:53 AM Age: 22 years old Clinical indication: Abdominal pain; Additional info: Llq pain TECHNIQUE: Imaging protocol: Computed tomography of the abdomen and pelvis with contrast. Radiation optimization: All CT scans at this facility use at least one of these dose optimization techniques: automated exposure control; mA and/or kV adjustment per patient size (includes targeted exams where dose is matched to clinical indication); or iterative reconstruction. Contrast material: ISOVUE; Contrast volume: 75 ml; Contrast route: IV; COMPARISON: US ABDOMEN LIMITED 06/26/2019 8:30 AM FINDINGS: Liver: Normal. No mass. Gallbladder and bile ducts: Prior cholecystectomy. Pancreas: Normal. No ductal dilation. Spleen: Normal. No splenomegaly. Adrenal glands: Normal. No mass. Kidneys and ureters: Small right renal cyst. Stomach and bowel: Unremarkable. No obstruction. No mucosal thickening. Appendix: No evidence of appendicitis. Intraperitoneal space: Unremarkable. No free air. No significant fluid collection. Vasculature: Unremarkable. No abdominal aortic aneurysm. Lymph nodes: Unremarkable. No enlarged lymph nodes. Urinary bladder: Unremarkable as visualized. Reproductive: Unremarkable as visualized. Bones/joints: Unremarkable. No acute fracture. Soft tissues: Unremarkable. IMPRESSION: No acute process or mass noted to explain the patient's symptoms. COMMENTS: Consistent with the [employer]'s Incidental Findings Committee white paper (J Am Nicky Radiol 2018): Any incidental renal lesion less than 1 cm or classified as too small to characterize, or any incidental cystic renal lesion characterized as simple-appearing, is likely benign. No follow-up imaging is recommended for these lesions per consensus recommendations based on imaging criteria.
[2022-05-14 02:27] LABS: Microscopic, Urine URINE MICROSCOPIC (MICROSCOPIC)
[2022-05-14 02:29] LABS: Appearance,Urine CLOUDY (Clear); Bilirubin,Urine Negative (Negative); Blood, Urine 3+ (Negative); Color,Urine YELLOW (Yellow); Glucose,Urine (UA) Negative (Negative); Ketones,Urine Negative (Negative); Leukocyte Esterase,Urine 2+ (Negative); Nitrate,Urine POSITIVE (Negative); PH,Urine 6.5 (5.0-8.5); Protein,Urine 2+ (Negative); Specific Gravity, Urine 1.025 (1.005-1.030); Urobilinogen,Urine 0.2 EU/dl (0.2)
[2022-05-14 02:30] VITALS: BP 114/71; PULSE 95; O2SAT 98
[2022-05-14 02:35] LABS: Basophils # 0.1 K/mm3 (0-0.2); Basophils % 0.7 % (0.1-2.0); Eosinophils # 0.7 K/mm3 (0.0-0.4); Eosinophils % 4.4 % (0.1-12.0); Hematocrit 41.4 % (37.0-47.0); Hemoglobin 13.2 g/dL (12.2-16.2); Lymphocytes # 3.3 K/mm3 (0.7-4.5); Lymphocytes % 20.5 % (10-50); Mean Corpuscular Volume 81.2 fl (81-99); Mean Platelet Volume 7.5 fl (7.4-10.4); Monocytes # 0.7 K/mm3 (0.1-1.0); Monocytes % 4.4 % (1.7-9.3); Neutrophils # 11.2 K/mm3 (1.8-7.8); Platelet Count 427 K/mm3 (142-424); Red Cell Distribution Width 14.5 % (11.5-17.5)
[2022-05-14 02:35] LABS: RBC,Urine 50-100 #/hpf (0-3); Urine Pregnancy, HCG Qual. Negative (Negative); WBC,Urine 50-100 #/hpf (0-3)
[2022-05-14 02:37] LABS: MANUAL DIFFERENTIAL MANUAL DIFFERENTIAL (MANUAL DIFF)
[2022-05-14 02:48] LABS: Alanine Aminotransferase 23 U/L (12-78); Albumin Level 4.4 g/dl (3.5-5.0); Albumin/Globulin Ratio 1.1 (1.1-1.8); Alkaline Phosphatase 92 U/L (38-126); Amylase 77 U/L (30-110); Anion Gap 12.7 mEq/L (5-15); Aspartate Amino Transferase 35 U/L (14-36); Bilirubin,Total 0.4 mg/dl (0.2-1.3); Blood Urea Nitrogen 11 mg/dl (7-17); Calcium 8.6 mg/dl (8.4-10.2); Carbon Dioxide 26 mmol/L (22.0-30.0); Chloride 103 mmol/L (98-107); Creatinine Clearance Estimated 112 mL/min (50-200); Estimated Glomerular Filt Rate 103 ml/min (>60); GFR (African American) 124 ML/MIN (>60); Globulin 3.9 g/dL (1.3-3.2); Glucose 114 mg/dl (74-100); Lipase 51 U/L (23-300); Potassium 3.7 mmoL/L (3.5-5.1); Sodium 138 mmol/L (136-145); Total Protein,Serum 8.3 g/dl (6.3-8.2)
[2022-05-14 02:51] LABS: Eosinophils % 4 % (0-3); Lymphocytes % 22 % (10-50); Monocytes % 1 % (2-9); Neutrophils % 69 % (42-76); Platelet Estimate Normal; RBC Morphology Normal; Rouleaux 1+; Total Cells Counted 100
[2022-05-14 02:53] LABS: C-Reactive Protein 37.1 mg/L (0-4)
[2022-05-14 03:00] VITALS: BP 118/73; PULSE 93; O2SAT 100
[2022-05-14 03:01] LABS: Erythrocyte Sedimentation Rate 20 mm/hr (0-20)
[2022-05-14 03:07] LABS: Procalcitonin < 0.030 ng/mL (0.0-2.0)
[2022-05-14 03:30] VITALS: BP 132/77; PULSE 96; O2SAT 100
[2022-05-14 04:00] VITALS: BP 113/75; PULSE 91; O2SAT 100
[2022-05-14 04:48] VITALS: BP 114/71; PULSE 89; RESP 16; TEMP 36.9; O2SAT 100
--- NOTE | 2022-05-14 04:51 | HMH.EDABDPAI ---
Discharge Plan Disposition Patient Disposition: Home, Self-Care Prescriptions Prescriptions: New ciprofloxacin HCl [Cipro] 500 mg tablet 500 mg PO BID Qty: 20 0RF No Action norgestimate-ethinyl estradiol 0.25-35 mg-mcg tablet 1 tab PO DAILY Qty: 28 12RF meloxicam 7.5 mg tablet 7.5 mg PO ONCE Qty: 30 0RF Xarelto 15 mg tablet 15 mg PO BID Qty: 60 0RF Rx Instructions: must administer with a meal/food for 21 days trazodone 100 mg tablet See Rx Instructions PO QHS Qty: 30 1RF Rx Instructions: take 1-2 tablets PO every day at bedtime; levothyroxine 50 MCG tablet 50 mcg PO DAILY metoprolol succinate [Toprol XL] 25 mg tablet extended release 24 hr 25 mg PO DAILY Referrals Follow up/Referrals: Derek Paiz MD [Primary Care Provider] - See instructions Clinical Impressions Clinical Impression: UTI (urinary tract infection) Instructions Patient Instructions: DI for Urinary Tract Infection (UTI) Discharge ED Provider: Samson Barrett Abdominal Pain HPI General Chief Complaint: Abdominal Pain Stated Complaint: Left ovary pain Time Seen by Provider: 05/14/22 04:51 Mode of Arrival: Ambulatory Source of Information: Patient, Significant Other and Medical Record Limitations: No Limitations Description of Symptoms (Recalled from ER Triage Doc. by RN): pt c/o LLQ pain with vomitting that started at midnight. History of Present Illness HPI narrative: lt sided abd pain with nausea started dank CRESPO complaint: abdominal pain Onset (ago): hour(s) Consistency: intermittent Location: LLQ Severity: moderate Associated symptoms: denies other symptoms Related Data Home Medications Medication Instructions Recorded Confirmed levothyroxine 50 mcg tablet 50 mcg PO DAILY THYROID 10/02/19 05/05/22 metoprolol succinate 25 mg 25 mg PO DAILY htn 04/27/22 05/05/22 tablet,extended release 24 hr (Toprol XL) Previous Rx's Medication Instructions Recorded norgestimate 0.25 mg-ethinyl 1 tab PO DAILY control #28 11/28/21 estradiol 35 mcg tablet tabs meloxicam 7.5 mg tablet 7.5 mg PO ONCE pain #30 tabs 03/07/22 trazodone 100 mg tablet See Rx Instructions PO QHS 11/04/22 Insomnia #30 tabs rivaroxaban 15 mg tablet (Xarelto) 15 mg PO BID #60 tabs 05/05/22 ciprofloxacin HCl 500 mg tablet 500 mg PO BID #20 tabs 05/14/22 (Cipro) Allergies Allergy/AdvReac Type Severity Reaction Status Date / Time No Known Allergies Allergy Verified 05/05/22 11:48 [facility] Disclaimer: The information contained in this section may have been updated after the patient was seen, as this information can be updated by other users. Medical History (Updated 05/14/22 @ 04:59 by Samson Barrett MD) Abnormal computed tomography angiography of heart Abnormal electrocardiography Chest pain Dizziness Dyspnea Generalized anxiety disorder Insomnia Palpitations Right arm pain Thrombus of right radial artery Surgical History History of cholecystectomy [place] teeth extracted Family History Other No significant family history Social History Smoking Status: Never smoker second hand exposure: No alcohol intake: never substance use type: denies use current occupational status: other Travel in the last 8 weeks: Inside the [place] number of children: 0 ROS Obtained: Yes All systems reviewed & no additional complaints except as documented Physical Exam General General appearance: alert Head Head exam: normocephalic Eye Eye exam: Present PERRL and EOMI ENT ENT exam: Present mucous membranes moist Neck Neck exam: Present trachea midline Respiratory Respiratory exam: Absent respiratory distress Cardiovascular Cardiovascular exam: Present regular rate Abdominal Exam Abdominal exa
== END 2022-05-14 05:04 | disposition home or self-care (01) ==
PROVIDERS: Emergency Provider Emergency Medicine; PCP Family Medicine
DX: N39.0 Urinary tract infection, site not specified (principal); F41.1 Generalized anxiety disorder; G47.00 Insomnia, unspecified; Z90.49 Acquired absence of other specified parts of digestive tract
CPT/HCPCS: 74177; 80053; 81001; 81025; 82150; 83690; 84145; 85007; 85025; 85651; 86140; 87086; 87088; 87186; 96361; 96374; 96375; 99285; J0696; J2405; Q9967

== ENCOUNTER → 2022-05-16 12:48 | Outpatient (CLI) | payer OTHER, SELFPAY ==
--- NOTE | 2022-05-16 12:48 | CA_ITS ---
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 Pt on Xarelto since 05/05/22 COMPARISON: 05/05/2022 FINDINGS: Spectral and Doppler waveform evaluations of the right wrist was performed. Spectral analysis was performed. No flow was identified in the visualized portion of the right radial artery. There is persistent right radial artery thrombus. IMPRESSION: Persistent right radial artery thrombus. Reviewed, Interpreted and Dictated by Ricki Faust III, MD Transcribed by Basia Valera Authenticated and [facility]
== END ==
PROVIDERS: PCP Family Medicine; Visit Provider Internal Medicine
DX: M79.601 Pain in right arm (principal); I74.2 Embolism and thrombosis of arteries of the upper extremities
CPT/HCPCS: 93931

== ENCOUNTER 2022-06-03 10:00 | Emergency (ER) | payer OTHER, SELFPAY ==
[2022-06-03 10:40] VITALS: BP 116/82; PULSE 97; RESP 20; TEMP 37.2; O2SAT 98; BMI 35.9
--- NOTE | 2022-06-03 10:44 | EXP.UTC ---
Discharge Plan Disposition Patient Disposition: Home, Self-Care Condition: Good Prescriptions Prescriptions: New ondansetron 4 mg Tablet,Disintegrating 4 mg PO Q8H PRN (Reason: Nausea) Qty: 12 0RF No Action norgestimate-ethinyl estradiol 0.25-35 mg-mcg tablet 1 tab PO DAILY Qty: 28 12RF meloxicam 7.5 mg tablet 7.5 mg PO ONCE Qty: 30 0RF trazodone 100 mg tablet See Rx Instructions PO QHS Qty: 30 1RF Rx Instructions: take 1-2 tablets PO every day at bedtime; Xarelto 15 mg tablet 15 mg PO BID Qty: 60 0RF Rx Instructions: must administer with a meal/food for 21 days Vraylar 1.5 mg capsule 1.5 mg PO DAILY Qty: 30 1RF levothyroxine 50 MCG tablet 50 mcg PO DAILY metoprolol succinate [Toprol XL] 25 mg tablet extended release 24 hr 25 mg PO DAILY ciprofloxacin HCl [Cipro] 500 mg tablet 500 mg PO BID Qty: 20 0RF Referrals Follow up/Referrals: Derek Paiz MD [Primary Care Provider] - See instructions Activity Restrictions/Add. Instructions Additional Instructions/Restrictions: Drink plenty of fluids. Take tylenol or ibuprofen for pain or fever. Take the medications as directed. Follow up with your regular doctor. GO TO THE ER FOR ANY WORSENING SYMPTOMS Clinical Impressions Clinical Impression: Acute viral syndrome Stand Alone Forms Stand Alone Forms: Work/School Release Instructions Patient Instructions: DI for Viral Syndrome, Coronavirus Disease 2019, Preventing the Spread of Coronavirus Discharge Instructions Discharge ED Provider: Ciro Pradhan [facility] General Stated complaint: vomiting,headache Time Seen by Provider: 06/03/22 10:44 History of Present Illness Provider Complaint: She states that for the past 2 days she has had chills, body aches, sore throat, and a cough. Related Data Home Medications Medication Instructions Recorded Confirmed levothyroxine 50 mcg tablet 50 mcg PO DAILY THYROID 10/02/19 05/18/22 metoprolol succinate 25 mg 25 mg PO DAILY htn 04/27/22 05/18/22 tablet,extended release 24 hr (Toprol XL) Previous Rx's Medication Instructions Recorded norgestimate 0.25 mg-ethinyl 1 tab PO DAILY control #28 11/28/21 estradiol 35 mcg tablet tabs meloxicam 7.5 mg tablet 7.5 mg PO ONCE pain #30 tabs 03/07/22 trazodone 100 mg tablet See Rx Instructions PO QHS 03/10/22 Insomnia #30 tabs ciprofloxacin HCl 500 mg tablet 500 mg PO BID #20 tabs 05/14/22 (Cipro) rivaroxaban 15 mg tablet (Xarelto) 15 mg PO BID #60 tabs 05/22/22 cariprazine 1.5 mg capsule 1.5 mg PO DAILY #30 caps 05/25/22 (Vraylar) ondansetron 4 mg disintegrating 4 mg PO Q8H PRN Nausea #12 tabs 06/03/22 tablet Allergies Allergy/AdvReac Type Severity Reaction Status Date / Time No Known Allergies Allergy Verified 06/03/22 10:47 [facility] Disclaimer: The information contained in this section may have been updated after the patient was seen, as this information can be updated by other users. Medical History Abnormal computed tomography angiography of heart Abnormal electrocardiography Chest pain Dizziness Dyspnea Generalized anxiety disorder Insomnia Palpitations Right arm pain Thrombus of right radial artery Surgical History History of cholecystectomy [place] teeth extracted Family History Other No significant family history Social History Smoking Status: Never smoker second hand exposure: No alcohol intake: never substance use type: denies use current occupational status: other Travel in the last 8 weeks: Inside the [place] number of children: 0 ROS Obtained: Yes All systems reviewed & no additional complaints except as documented Constitutional [employer]
[2022-06-03 11:40] VITALS: BP 116/82; PULSE 97; RESP 20; TEMP 37.2; O2SAT 98
== END 2022-06-03 11:39 | disposition home or self-care (01) ==
PROVIDERS: Emergency Provider Nurse Practitioner Family; PCP Family Medicine
DX: R11.10 Vomiting, unspecified (principal); R51.9 Headache, unspecified; B34.9 Viral infection, unspecified; R05.9 Cough, unspecified
CPT/HCPCS: 99212; 99213; C9803; G0463; U0003; U0005

== ENCOUNTER → 2022-06-07 09:00 | Outpatient (CLI) | payer OTHER, SELFPAY | PROVIDERS: PCP Family Medicine; Visit Provider Nurse Practitioner | DX: I74.2 Embolism and thrombosis of arteries of the upper extremities (principal) | CPT/HCPCS: 93931 ==

== ENCOUNTER → 2022-08-21 10:36 | Outpatient (CLI) | payer OTHER, SELFPAY ==
--- NOTE | 2022-08-21 11:05 | ECG_ITS ---
APPROVED REPORT Exam: Resting ECG HR:75 bpm ECG Measurements Heart Rate 75 AXES NJ 112 P -8 QRSd 88 QRS 82 QT 368 T -12 QTc 397 Conclusion SINUS RHYTHM WITH SHORT [place] INTERVAL NONSPECIFIC T-WAVE ABNORMALITY ABNORMAL ECG UNCONFIRMED REPORT Electronically signed by : Jose Luis Lozoya MD 08/21/2022 20:29:55
--- NOTE | 2022-08-21 11:10 | XR_ITS ---
FINAL REPORT TECHNIQUE: Chest PA & Lateral CLINICAL HISTORY: SOA COMPARISON: 03/2022 FINDINGS: 2 views of the chest were performed. The heart size is normal. The mediastinum is within normal limits. There is no acute cardiopulmonary process. There are no pleural effusions. There is no pneumothorax. The bony thorax appears intact. IMPRESSION: No acute cardiopulmonary process. Reviewed, Interpreted and Dictated by Ricki Faust III, MD Transcribed by Kayden Dunham Authenticated and [facility]
== END ==
PROVIDERS: PCP Nurse Practitioner Family; Visit Provider Nurse Practitioner Family
DX: R06.02 Shortness of breath (principal); R07.9 Chest pain, unspecified
CPT/HCPCS: 71046; 93005

== ENCOUNTER 2022-08-25 18:40 | Emergency (ER) | payer OTHER, SELFPAY ==
--- NOTE | 2022-08-25 18:38 | ECG_ITS ---
APPROVED REPORT Exam: Resting ECG HR:107 bpm ECG Measurements Heart Rate 107 AXES ME 134 P 31 QRSd 90 QRS 60 QT 347 T -1 QTc 410 Conclusion SINUS TACHYCARDIA NONSPECIFIC T-WAVE ABNORMALITY ABNORMAL ECG UNCONFIRMED REPORT Electronically signed by : Jose Luis Lozoya MD 08/26/2022 15:40:10
[2022-08-25 18:41] VITALS: BP 134/99; PULSE 99; RESP 18; TEMP 36.7; O2SAT 100; BMI 34.7
--- NOTE | 2022-08-25 18:45 | XR_ITS ---
PROCEDURE INFORMATION: Exam: XR Chest Exam date and time: 08/25/2022 7:06 PM Age: 22 years old Clinical indication: Pain; Chest pressure; Additional info: Chest pain TECHNIQUE: Imaging protocol: Radiologic exam of the chest. Views: 2 views. COMPARISON: CR XR CHEST 2V 08/21/2022 11:17 AM FINDINGS: Lungs: Unremarkable. No consolidation. Pleural spaces: Unremarkable. No pleural effusion. No pneumothorax. Heart/Mediastinum: Unremarkable. No cardiomegaly. Bones/joints: Unremarkable. IMPRESSION: No acute findings.
--- NOTE | 2022-08-25 18:47 | HMH.EDCP ---
Discharge Plan Disposition Patient Disposition: Home, Self-Care Chief Complaint: Chest Pain Prescriptions Prescriptions: No Action levothyroxine 75 mcg tablet 75 mcg PO DAILY norgestimate-ethinyl estradiol 0.25-35 mg-mcg tablet 1 tab PO DAILY Qty: 28 12RF meloxicam 7.5 mg tablet 7.5 mg PO ONCE Qty: 30 0RF Xarelto 20 mg tablet 20 mg PO DAILY Qty: 30 0RF Rx Instructions: must administer with a meal/food for 21 days Vraylar 3 mg capsule 3 mg PO DAILY Qty: 30 1RF trazodone 100 mg tablet See Rx Instructions PO QHS Qty: 30 1RF Rx Instructions: take 1-2 tablets PO every day at bedtime; metoprolol succinate [Toprol XL] 25 mg tablet extended release 24 hr 25 mg PO DAILY ondansetron 4 mg Tablet,Disintegrating 4 mg PO Q8H PRN (Reason: Nausea) Qty: 12 0RF Referrals Follow up/Referrals: Basia Partida APRN [Primary Care Provider] - See instructions Activity Restrictions/Add. Instructions Additional Instructions/Restrictions: Please follow-up with your primary care doctor in about 2 to 3 days. Return to the emergency department immediately if you worsen in any way. Your work-up today in the emergency department did not show any event evidence of heart attack, pneumonia, blood clot in your lungs. You may take [id number] Tylenol and or Motrin for your pain. Clinical Impressions Clinical Impression: Atypical chest pain Instructions Patient Instructions: DI for Atypical Chest Pain Discharge ED Provider: Cielo Sinclair Chest Pain HPI General Chief Complaint: Chest Pain Stated Complaint: Chest pain Time Seen by Provider: 08/25/22 18:44 Mode of Arrival: Ambulatory Source of Information: Patient and Significant Other Limitations: No Limitations Description of Symptoms (Recalled from ER Triage Doc. by RN): Presents via POV d/t intermittent midsternal chest pain, burning sensation to bilateral lunds, and exertional dyspnea since last night while working at [employer]. Precipitating factors exercise and ambulation. Denies alleviating factors. Pt reports she saw her PCP, Dr. Paiz, last week and prescribed Alb inh without improvement. History of Present Illness HPI narrative: The patient presents to the emergency department complaining of central chest pain since last night. The pain is constant. It gets worse with movement and walking. She denies any pleuritic component to the chest pain. The pain is not reproducible with palpation of the chest wall or movement of the arms she says. MD complaint: chest pain KATINA Score for Stemi Age of Patient: <30 years old Heart Rate: 90-109 bpm Systolic Blood Pressure: 120-139 mmhg Serum Creatinine: 0.40-0.79 mg/dl CHF [place] Class: I-No CHF Other Risk Factors: None Stemi Risk Score: 53 Related Data Home Medications Medication Instructions Recorded Confirmed metoprolol succinate 25 mg 25 mg PO DAILY htn 04/27/22 06/29/22 tablet,extended release 24 hr (Toprol XL) levothyroxine 75 mcg tablet 75 mcg PO DAILY 06/06/22 06/29/22 Previous Rx's Medication Instructions Recorded norgestimate 0.25 mg-ethinyl 1 tab PO DAILY control #28 11/28/21 estradiol 35 mcg tablet tabs meloxicam 7.5 mg tablet 7.5 mg PO ONCE pain #30 tabs 03/07/22 ondansetron 4 mg disintegrating 4 mg PO Q8H PRN Nausea #12 tabs 06/03/22 tablet rivaroxaban 20 mg tablet 20 mg PO DAILY #30 tabs 06/07/22 cariprazine 3 mg capsule (Vraylar) 3 mg PO DAILY #30 caps 07/31/22 trazodone 100 mg tablet See Rx Instructions PO QHS 07/31/22 Insomnia #30 tabs Allergies Allergy/AdvReac Type Severity Reaction Status Date / Time No Known Allergies Allergy Verified 06/12/22 11:19 [facility] Disclaimer: The information contained in this section may have been updated after the patient was seen, as this information can be updated by other users. Medical History Abnormal computed tomography angiogra
[2022-08-25 19:00] VITALS: BP 126/89; PULSE 95; RESP 20; O2SAT 99
[2022-08-25 19:04] LABS: Basophils # 0.1 K/mm3 (0-0.2); Basophils % 0.5 % (0.1-2.0); Eosinophils # 0.6 K/mm3 (0.0-0.4); Eosinophils % 4.3 % (0.1-12.0); Hematocrit 41.4 % (37.0-47.0); Hemoglobin 12.8 g/dL (12.2-16.2); Lymphocytes # 3.1 K/mm3 (0.7-4.5); Lymphocytes % 22.5 % (10-50); Mean Corpuscular HGB Conc 30.9 g/dL (31.8-35.4); Mean Corpuscular Hemoglobin 24.7 pg (27.0-31.2); Mean Corpuscular Volume 79.8 fl (81-99); Mean Platelet Volume 7.7 fl (7.4-10.4); Monocytes # 0.8 K/mm3 (0.1-1.0); Monocytes % 5.9 % (1.7-9.3); Neutrophils # 9.1 K/mm3 (1.8-7.8); Neutrophils % 66.9 % (37.0-80.0); Platelet Count 424 K/mm3 (142-424); Red Blood Count 5.18 M/mm3 (4.20-5.40); Red Cell Distribution Width 14.9 % (11.5-17.5); White Blood Count 13.6 K/mm3 (4.8-10.8)
[2022-08-25 19:10] LABS: Chloride 103 mmol/L (98-107); Sodium 137 mmol/L (136-145)
[2022-08-25 19:11] LABS: Potassium 3.9 mmoL/L (3.5-5.1)
[2022-08-25 19:12] LABS: HCG Qualitative, Serum Negative (Negative)
[2022-08-25 19:14] LABS: Anion Gap 10.9 mEq/L (5-15); Blood Urea Nitrogen 12 mg/dl (7-17); Calcium 8.8 mg/dl (8.4-10.2); Carbon Dioxide 27 mmol/L (22.0-30.0); Creatinine Clearance Estimated 216 mL/min (50-200); Estimated Glomerular Filt Rate 123 ml/min (>60); GFR (African American) 149 ML/MIN (>60); Glucose 105 mg/dl (74-100)
[2022-08-25 19:30] VITALS: BP 123/83; PULSE 92; RESP 25; O2SAT 100
[2022-08-25 19:45] LABS: Troponin I < 0.01 ng/ml (0.00-0.034)
[2022-08-25 20:00] VITALS: BP 130/86; PULSE 102; RESP 27; O2SAT 99
[2022-08-25 20:30] VITALS: BP 138/92; PULSE 94; RESP 26; O2SAT 100
[2022-08-25 21:46] VITALS: BP 136/78; PULSE 74; RESP 16; TEMP 36.6; O2SAT 98
== END 2022-08-25 21:47 | disposition home or self-care (01) ==
PROVIDERS: Emergency Provider Emergency Medicine; PCP Nurse Practitioner Family
DX: R07.9 Chest pain, unspecified (principal)
CPT/HCPCS: 71046; 80048; 84484; 84703; 85025; 93005; 99285

== ENCOUNTER → 2022-10-04 09:41 | Outpatient (CLI) | payer OTHER, SELFPAY ==
[2022-10-04 11:31] LABS: HCG,Quantitative < 2 mIU/ml (0-5.42)
== END ==
PROVIDERS: PCP Family Medicine; Visit Provider Obstetrics & Gynecology
DX: N92.6 Irregular menstruation, unspecified (principal)
CPT/HCPCS: 36415; 84702

== ENCOUNTER → 2022-10-19 11:06 | Outpatient (CLI) | payer OTHER, SELFPAY ==
[2022-10-19 11:41] LABS: Basophils % 0.3 % (0.1-2.0); Eosinophils # 0.5 K/mm3 (0.0-0.4); Eosinophils % 4.2 % (0.1-12.0); Hematocrit 40.9 % (37.0-47.0); Hemoglobin 12.5 g/dL (12.2-16.2); Lymphocytes # 2.2 K/mm3 (0.7-4.5); Lymphocytes % 19.7 % (10-50); Mean Corpuscular HGB Conc 30.6 g/dL (31.8-35.4); Mean Corpuscular Volume 78.4 fl (81-99); Mean Platelet Volume 7.7 fl (7.4-10.4); Monocytes # 0.4 K/mm3 (0.1-1.0); Neutrophils # 7.9 K/mm3 (1.8-7.8); Neutrophils % 71.8 % (37.0-80.0); Platelet Count 405 K/mm3 (142-424); Red Blood Count 5.21 M/mm3 (4.20-5.40)
[2022-10-30 17:22] LABS: D001-IgE D pteronyssinus 0.29 kU/L (Class 0/I); E001-IgE Cat Dander <0.10 kU/L (Class 0); E005-IgE Dog Dander <0.10 kU/L (Class 0); E072-IgE Mouse Urine <0.10 kU/L (Class 0); G002-IgE Bermuda Grass <0.10 kU/L (Class 0); G006-IgE Timothy Grass <0.10 kU/L (Class 0); I006-IgE Cockroach, German 6.81 kU/L (Class IV); Immunoglobulin E, Total 167 IU/mL (6-495); M001-IgE Penicillium chrysogen <0.10 kU/L (Class 0); M002-IgE Cladosporium herbarum <0.10 kU/L (Class 0); M003-IgE Aspergillus fumigatus <0.10 kU/L (Class 0); M006-IgE Alternaria alternata <0.10 kU/L (Class 0); T001-IgE Maple/Box Elder <0.10 kU/L (Class 0); T006-IgE Cedar, Mountain <0.10 kU/L (Class 0); T007-IgE Oak, White <0.10 kU/L (Class 0); T008-IgE Elm, American <0.10 kU/L (Class 0); T010-IgE Walnut <0.10 kU/L (Class 0); T014-IgE Cottonwood <0.10 kU/L (Class 0); T022-IgE Pecan, Hickory <0.10 kU/L (Class 0); W001-IgE Ragweed, Short 0.11 kU/L (Class 0/I); W011-IgE Thistle, Russian <0.10 kU/L (Class 0); W014-IgE Pigweed, Common <0.10 kU/L (Class 0); W018-IgE Sheep Sorrel <0.10 kU/L (Class 0)
== END ==
PROVIDERS: PCP Family Medicine; Visit Provider Internal Medicine Pulmonary Disease
DX: J30.9 Allergic rhinitis, unspecified (principal)
CPT/HCPCS: 36415; 82785; 85025; 86003

== ENCOUNTER 2022-10-28 15:48 | Emergency (ER) | payer OTHER, SELFPAY ==
[2022-10-28 16:00] VITALS: PULSE 97; RESP 18; TEMP 36.9; O2SAT 100; BMI 35.4
--- NOTE | 2022-10-28 16:27 | EXP.UTC ---
Discharge Plan Disposition Patient Disposition: Home, Self-Care Condition: Good Prescriptions Prescriptions: No Action levothyroxine 75 mcg tablet 75 mcg PO DAILY trazodone 100 mg tablet See Rx Instructions PO QHS Qty: 30 1RF Rx Instructions: take 1-2 tablets PO every day at bedtime; albuterol sulfate 90 mcg/actuation HFA aerosol inhaler 2 inh inhalation Q6H PRN (Reason: shortness of breath or wheezing) 90 Days Qty: 8.5 1RF norgestimate-ethinyl estradiol 0.25-35 mg-mcg tablet 1 tab PO DAILY Qty: 28 12RF fluticasone furoate-vilanterol [Breo Ellipta] 100-25 mcg/dose blister with device 1 inh inhalation DAILY Caplyta 42 mg capsule 42 mg PO DAILY Referrals Follow up/Referrals: Derek Paiz MD [Primary Care Provider] - See instructions Activity Restrictions/Add. Instructions Additional Instructions/Restrictions: follow up with donaldo on sunday at 11 am if symptoms worsen return or be seen in ed adeel Clinical Impressions Clinical Impression: Arm pain, D-dimer, elevated Instructions Patient Instructions: DI for Arm Pain Discharge ED Provider: Saima ([facility])Jorge [facility] HPI General Stated complaint: rt forearm pain, no known inj Mode of Arrival: Ambulatory Source of Information: Patient Limitations: No Limitations Time Seen by Provider: 10/28/22 16:28 Description of Symptoms (Recalled from Triage Doc. by RN): right forearm pain this started . Does lift heavy items at work. Not sure what has caused it. HEENT Symptoms (Recalled from RN notes): No Resp Symptoms (Recalled from RN notes): No Skin Symptoms (Recalled from RN notes): No MS Symptoms (Recalled from RN notes): Yes Functional Status (Recalled from RN notes): n/a History of Present Illness Provider Complaint: 22 yr old female presents for rt arm pain, numbness and pain in fingers since - hx of blood clot in arm and stopped Xarelto a couple months ago Related Data Home Medications Medication Instructions Recorded Confirmed levothyroxine 75 mcg tablet 75 mcg PO DAILY thyroid 06/06/22 10/28/22 fluticasone furoate 100 1 inh inhalation DAILY Asthma 10/28/22 10/28/22 mcg-vilanterol 25 mcg/dose inhalation powder (Breo Ellipta) lumateperone 42 mg capsule 42 mg PO DAILY Depression 10/28/22 10/28/22 (Caplyta) Previous Rx's Medication Instructions Recorded norgestimate 0.25 mg-ethinyl 1 tab PO DAILY control #28 11/28/21 estradiol 35 mcg tablet tabs trazodone 100 mg tablet See Rx Instructions PO QHS 09/25/22 Insomnia #30 tabs albuterol sulfate 90 mcg/actuation 2 inh inhalation Q6H PRN shortness 10/19/22 aerosol inhaler of breath or wheezing 90 days #8.5 grams Allergies Allergy/AdvReac Type Severity Reaction Status Date / Time No Known Allergies Allergy Verified 10/28/22 16:06 Worker's Comp Is this a Worker's Comp case?: No [facility] Disclaimer: The information contained in this section may have been updated after the patient was seen, as this information can be updated by other users. 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) Abnormal computed tomography angiography of heart Abnormal electrocardiography Allergic rhinitis Asthma Chest pain Dizziness Dyspnea Dyspnea on exertion Generalized anxiety disorder Insomnia Palpitations Right arm pain Thrombus of right radial artery Surgical History , LINEN CLERK) History of cholecystectomy [place] teeth extracted Family History , LINEN CLERK) No significant family history Social History , LINEN CLERK) Smoking Status: Never smoker second hand exposure: No alcohol intake: never substance use type: denies use current occupational status: other Travel in the last 8 weeks: None number of children: 0 ROS Obtaine
[2022-10-28 17:19] LABS: D-Dimer 0.83 ug/mL (0.0-0.5)
[2022-10-28 18:08] VITALS: BP 0/0; PULSE 97; RESP 18; TEMP 36.9; O2SAT 100
== END 2022-10-28 18:08 | disposition home or self-care (01) ==
PROVIDERS: Emergency Provider Nurse Practitioner Family; PCP Family Medicine
DX: M79.601 Pain in right arm (principal); R79.89 Other specified abnormal findings of blood chemistry; F41.1 Generalized anxiety disorder; J45.909 Unspecified asthma, uncomplicated; G47.00 Insomnia, unspecified
CPT/HCPCS: 85378; 99212; 99214; G0463

== ENCOUNTER → 2022-10-29 10:52 | Outpatient (CLI) | payer OTHER, SELFPAY ==
--- NOTE | 2022-10-29 10:58 | CA_ITS ---
FINAL REPORT TECHNIQUE: Graded compression, spectral analysis and ultrasound images of the venous system of the right upper extremity were obtained. CLINICAL HISTORY: PAIN/BURNING,NUMBNESS RT FOREARM,HX OF A RIGHT RADIAL THROMBUS SEVERAL MONTHS AGO PT STOPPED XARELTO IN JULY WAS STARTED BACK ON XARELTO YESTERDAY,NKI COMPARISON: None FINDINGS: The jugular vein, subclavian vein, axillary vein, brachial vein, cephalic vein and basilic venous system are fully compressible and demonstrate no evidence of thrombosis. IMPRESSION: No evidence of thrombosis of the venous system of the right upper extremity. Reviewed, Interpreted and Dictated by Ricki Faust III, MD Transcribed by Melanie Chambers Authenticated and [facility]
== END ==
PROVIDERS: PCP Family Medicine; Visit Provider Nurse Practitioner Family
DX: M79.601 Pain in right arm (principal); R20.0 Anesthesia of skin; R20.2 Paresthesia of skin; Z86.718 Personal history of other venous thrombosis and embolism
CPT/HCPCS: 93971

== ENCOUNTER → 2022-10-30 11:43 | Outpatient (CLI) | payer OTHER, SELFPAY ==
--- NOTE | 2022-10-30 11:45 | CA_ITS ---
FINAL REPORT TECHNIQUE: Ultrasound imaging of the right radial artery was obtained. CLINICAL HISTORY: PAIN RT FOREARM X SEVERAL DAYS, HX RT RADIAL THROMBUS,PT ON XARELTO AT THIS TIME FINDINGS: The right radial artery is patent without evidence of thrombus or pseudoaneurysm. IMPRESSION: Patent right radial artery. Reviewed, Interpreted and Dictated by Ricki Faust III, MD Transcribed by Radha Palomino Authenticated and [facility]
== END ==
PROVIDERS: PCP Family Medicine; Visit Provider Internal Medicine
DX: I74.2 Embolism and thrombosis of arteries of the upper extremities (principal); M79.601 Pain in right arm
CPT/HCPCS: 93931

== ENCOUNTER → 2022-11-29 10:24 | Outpatient (CLI) | payer OTHER, SELFPAY ==
--- NOTE | 2022-11-29 10:36 | XR_ITS ---
FINAL REPORT CLINICAL HISTORY: RT ANKLE PAIN FINDINGS: Three views show no evidence of acute displaced fracture or dislocation of the visualized bony architecture. The joint spaces appear normal. IMPRESSION: Unremarkable exam. Reviewed, Interpreted and Dictated by Jennifer Ordaz MD Transcribed by Niru Fountain Authenticated and [facility]
== END ==
PROVIDERS: PCP Family Medicine; Visit Provider Family Medicine
DX: M25.571 Pain in right ankle and joints of right foot (principal)
CPT/HCPCS: 73610

== ENCOUNTER → 2022-12-20 07:59 | Outpatient (CLI) | payer OTHER, SELFPAY | PROVIDERS: PCP Family Medicine; Visit Provider Internal Medicine Pulmonary Disease | DX: R06.09 Other forms of dyspnea (principal); J44.9 Chronic obstructive pulmonary disease, unspecified | CPT/HCPCS: 94060; 94618; 94726; 94729 ==

== ENCOUNTER 2022-12-24 13:44 | Emergency (ER) | payer OTHER, SELFPAY ==
[2022-12-24] VITALS (8 sets, daily range): BP systolic 100–116; BP diastolic 59–73; PULSE 67–77; RESP 19–20; TEMP 36.7–37.1; O2SAT 99–100; BMI 36.4
[2022-12-24 14:06] LABS: Microscopic, Urine URINE MICROSCOPIC (MICROSCOPIC)
[2022-12-24 14:15] LABS: Appearance,Urine CLEAR (Clear); Bilirubin,Urine Negative (Negative); Blood, Urine Negative (Negative); Color,Urine YELLOW (Yellow); Glucose,Urine (UA) Negative (Negative); Ketones,Urine Negative (Negative); Leukocyte Esterase,Urine Negative (Negative); Nitrate,Urine Negative (Negative); Protein,Urine Negative (Negative); Urobilinogen,Urine 0.2 EU/dl (0.2)
--- NOTE | 2022-12-24 14:25 | US_ITS ---
PROCEDURE INFORMATION: Exam: US Duplex Artery and Vein of the Abdominal and/or Reproductive Organs. Complete Ovaries Exam date and time: 12/24/2022 3:04 PM Age: 22 years old Clinical indication: Pelvic pain; Additional info: Llq pain TECHNIQUE: Imaging protocol: Real-time duplex ultrasound scan of the arterial and venous flow with color Doppler flow and spectral waveform analysis with image documentation. Complete duplex exam focused on the ovaries. Duplex exam was performed to evaluate for torsion and other vascular conditions. Total images: 37 COMPARISON: US ABDOMEN LIMITED 06/26/2019 8:30 AM FINDINGS: Right ovary/adnexa: Normal duplex of the ovary. Normal Doppler waveforms and color flow. Arterial and venous flow are normal. No evidence of ovarian torsion. Left ovary/adnexa: Normal duplex of the ovary. Normal Doppler waveforms and color flow. Arterial and venous flow are normal. No evidence of ovarian torsion. IMPRESSION: Normal ovarian arterial and venous vascular flow. No evidence ovarian torsion. PROCEDURE INFORMATION: Exam: US Pelvis, Transvaginal Exam date and time: 12/24/2022 3:04 PM Age: 22 years old Clinical indication: Pelvic pain; Additional info: Llq pain LABS AND CLINICAL REPORTS: Last menstrual period start date: 12/03/2022 TECHNIQUE: Imaging protocol: Real-time transvaginal pelvic ultrasound with image documentation. Transvaginal imaging was used for better evaluation of the endometrium, adnexa, and/or cervix. COMPARISON: US TRANSVAGINAL 06/26/2019 8:21 AM FINDINGS: Uterus: Uterus measures 7.9 cm x 4.3 cm x 3.9 cm. Right ovary/adnexa: Right ovary measures 4 cm x 2.5 cm x 3.9 cm. Right ovarian volume is 20.4 mL. Right ovarian cyst is present measuring 1.6 cm. No other adnexal masses. Left ovary/adnexa: Left ovary measures 3.1 cm x 1.8 cm x 2 cm. Left ovarian volume is 5.7 mL. Intraperitoneal space: Small amount of fluid noted within the cul-de-sac. IMPRESSION: 1. Small amount of fluid noted within the cul-de-sac. 2. Right ovarian cyst is present measuring 1.6 cm. 3. No other adnexal masses.
[2022-12-24 14:29] LABS: WBC,Urine Occasional #/hpf (0-3)
--- NOTE | 2022-12-24 14:34 | HMH.EDGENADL ---
Discharge Plan Disposition Patient Disposition: Home, Self-Care Condition: Good Prescriptions Prescriptions: No Action levothyroxine 75 mcg tablet 75 mcg PO DAILY albuterol sulfate 90 mcg/actuation HFA aerosol inhaler 2 inh inhalation Q6H PRN (Reason: shortness of breath or wheezing) 90 Days Qty: 8.5 1RF trazodone 100 mg tablet See Rx Instructions PO QHS Qty: 30 1RF Rx Instructions: take 1-2 tablets PO every day at bedtime; bisoprolol fumarate 10 mg tablet 10 mg PO DAILY Qty: 30 3RF lamotrigine [Lamictal] 25 mg tablet See Rx Instructions PO .COMPLEX Qty: 42 0RF Rx Instructions: take 1 tablet for 2 weeks; take 2 tablets daily PO ; fluticasone furoate-vilanterol [Breo Ellipta] 100-25 mcg/dose blister with device 1 inh inhalation DAILY Xarelto 15 mg tablet 15 mg PO BID 21 Days Qty: 42 0RF Rx Instructions: must administer with meal Referrals Follow up/Referrals: Derek Paiz MD [Primary Care Provider] - See instructions Activity Restrictions/Add. Instructions Additional Instructions/Restrictions: You were evaluated in the emergency department today. Please follow-up closely with your primary care provider. Return to the emergency department for new or worsening symptoms. Clinical Impressions Clinical Impression: Abdominal pain, acute, left lower quadrant Instructions Patient Instructions: DI for Acute Abdominal Pain Discharge ED Provider: Parvez Oneill General Adult HPI <Melida Martines, - Last Filed: 12/24/22 15:37> General Chief complaint: Abdominal Pain Stated complaint: abd pain, h/a Time Seen by Provider: 12/24/22 14:20 Mode of Arrival: Ambulatory Source of Information: Patient Limitations: No Limitations Description of Symptoms (Recalled from ER Triage Doc. by RN): pt to ed c/o LUQ pain x2 days that worsened today. pt denies n/v/d. pt states the pain is sharp in nature and worse with movement. History of Present Illness HPI narrative: This patient is a 22-year-old female with a history of obesity and PCOS presenting to the emergency department for evaluation with concern for left lower quadrant abdominal pain. She states that it has been ongoing x2 days but acutely worsened today. She states that it is severe, constant, and in the left lower quadrant. It is nonradiating. It is sharp and worse with movement. She denies any fevers, chills, nausea, vomiting, changes in bowel movements such as constipation or diarrhea, rashes, or swelling. She also denies any dysuria, vaginal discharge, or other concerns. She is unsure if she could be or not. Related Data Home Medications Medication Instructions Recorded Confirmed levothyroxine 75 mcg tablet 75 mcg PO DAILY thyroid 06/06/22 12/20/22 fluticasone furoate 100 1 inh inhalation DAILY Asthma 10/28/22 12/20/22 mcg-vilanterol 25 mcg/dose inhalation powder (Breo Ellipta) Previous Rx's Medication Instructions Recorded albuterol sulfate 90 mcg/actuation 2 inh inhalation Q6H PRN shortness 10/19/22 aerosol inhaler of breath or wheezing 90 days #8.5 grams rivaroxaban 15 mg tablet (Xarelto) 15 mg PO BID 3 weeks #42 tabs 10/28/22 bisoprolol fumarate 10 mg tablet 10 mg PO DAILY #30 tabs 10/30/22 trazodone 100 mg tablet See Rx Instructions PO QHS 11/14/22 Insomnia #30 tabs lamotrigine 25 mg tablet (Lamictal) See Rx Instructions PO .COMPLEX 12/19/22 #42 tabs Allergies Allergy/AdvReac Type Severity Reaction Status Date / Time No Known Allergies Allergy Verified 12/20/22 10:03 [facility] <Melida Martines DO - Last Filed: 12/24/22 15:37> [facility] Disclaimer: The information contained in this section may have been updated after the patient was seen, as this information can be updated by other users. Medical History (Updated 12/24/22 @ 15:37 by Melida Martines DO) Abnormal computed tomography angiography of heart Abnormal electrocardiography Allergic rhinitis
--- NOTE | 2022-12-24 15:26 | PC.NURSE ---
pt arrived back to room from ultrasound
[2022-12-24 15:34] LABS: Basophils % 0.3 % (0.1-2.0); Chloride 102 mmol/L (98-107); Eosinophils # 0.4 K/mm3 (0.0-0.4); Eosinophils % 3.7 % (0.1-12.0); Hematocrit 39.9 % (37.0-47.0); Hemoglobin 12.8 g/dL (12.2-16.2); Lymphocytes # 2.4 K/mm3 (0.7-4.5); Lymphocytes % 19.7 % (10-50); Mean Corpuscular Hemoglobin 25.2 pg (27.0-31.2); Mean Corpuscular Volume 78.7 fl (81-99); Mean Platelet Volume 7.9 fl (7.4-10.4); Monocytes # 0.6 K/mm3 (0.1-1.0); Monocytes % 5.3 % (1.7-9.3); Neutrophils # 8.5 K/mm3 (1.8-7.8); Platelet Count 367 K/mm3 (142-424); Red Blood Count 5.07 M/mm3 (4.20-5.40); Red Cell Distribution Width 15.6 % (11.5-17.5)
[2022-12-24 15:35] LABS: Potassium 4.1 mmoL/L (3.5-5.1); Sodium 137 mmol/L (136-145)
[2022-12-24 15:37] LABS: Alanine Aminotransferase 53 U/L (12-78); Aspartate Amino Transferase 60 U/L (14-36); Blood Urea Nitrogen 9 mg/dl (7-17); Creatinine Clearance Estimated 194 mL/min (50-200); Estimated Glomerular Filt Rate 103 ml/min (>60); GFR (African American) 124 ML/MIN (>60); HCG Qualitative, Serum Negative (Negative)
[2022-12-24 15:38] LABS: Albumin Level 3.6 g/dl (3.5-5.0); Albumin/Globulin Ratio 1.1 (1.1-1.8); Alkaline Phosphatase 116 U/L (38-126); Anion Gap 13.1 mEq/L (5-15); Bilirubin,Total 0.5 mg/dl (0.2-1.3); Calcium 9.1 mg/dl (8.4-10.2); Carbon Dioxide 26 mmol/L (22.0-30.0); Globulin 3.3 g/dL (1.3-3.2); Glucose 102 mg/dl (74-100); Lipase 30 U/L (23-300); Total Protein,Serum 6.9 g/dl (6.3-8.2)
== END 2022-12-24 17:32 | disposition home or self-care (01) ==
PROVIDERS: Emergency Medicine; Emergency Provider Emergency Medicine; PCP Family Medicine
DX: R10.12 Left upper quadrant pain (principal); R10.32 Left lower quadrant pain; E28.2 Polycystic ovarian syndrome; J45.30 Mild persistent asthma, uncomplicated; F41.1 Generalized anxiety disorder
CPT/HCPCS: 76830; 80053; 81001; 83690; 84703; 85025; 96360; 96361; 99285

== ENCOUNTER 2023-01-15 17:40 | Emergency (ER) | payer OTHER, SELFPAY ==
[2023-01-15 18:40] VITALS: BP 141/90; PULSE 99; RESP 17; TEMP 37.4; O2SAT 98; BMI 39.1
[2023-01-15 18:53] VITALS: BP 141/90; PULSE 99; RESP 17; TEMP 37.4; O2SAT 98
--- NOTE | 2023-01-15 18:57 | EXP.UTC ---
Discharge Plan Disposition Patient Disposition: Home, Self-Care Condition: Good Prescriptions Prescriptions: No Action levothyroxine 75 mcg tablet 75 mcg PO DAILY albuterol sulfate 90 mcg/actuation HFA aerosol inhaler 2 inh inhalation Q6H PRN (Reason: shortness of breath or wheezing) 90 Days Qty: 8.5 1RF trazodone 100 mg tablet See Rx Instructions PO QHS Qty: 30 1RF Rx Instructions: take 1-2 tablets PO every day at bedtime; bisoprolol fumarate 10 mg tablet 10 mg PO DAILY Qty: 30 3RF lamotrigine [Lamictal] 25 mg tablet See Rx Instructions PO .COMPLEX Qty: 42 0RF Rx Instructions: take 1 tablet for 2 weeks; take 2 tablets daily PO ; fluticasone furoate-vilanterol [Breo Ellipta] 100-25 mcg/dose blister with device 1 inh inhalation DAILY Xarelto 15 mg tablet 15 mg PO BID 21 Days Qty: 42 0RF Rx Instructions: must administer with meal Referrals Follow up/Referrals: Derek Paiz MD [Primary Care Provider] - See instructions Activity Restrictions/Add. Instructions Additional Instructions/Restrictions: *Monitor Temp, Over the counter Motrin or Tylenol as directed/as needed Tylenol every 4 hours and Motrin every 6 hours (as long as your family doctor has told you that you can take it) for fever or pain. and straight to ER if unable to lower temp less than 101.0 after medication given *Warm salt water gargles may help to soothe the throat *Throat Lozenges? *Warm fluids like tea with honey may help to soothe the throat? *Sleep elevated *Humidifier/Vaporizer Follow up IMMEDIATELY for new or worsening symptoms or no Noticeable improvement over the next 48-72 hours. 911 for difficulty breathing or swallowing You were tested for today for COVID19 your test result should be back in the next 24, you may Check your Results on the [facility] My Health Portal Clinical Impressions Clinical Impression: Viral syndrome Stand Alone Forms Stand Alone Forms: Work/School Release Instructions Patient Instructions: DI for COVID-19 (Suspected or Confirmed ), Preventing the Spread of Coronavirus Discharge Instructions Discharge ED Provider: Stacey Odonnell [facility] [place] HPI General Stated complaint: COVID home test + fever,cough,runny nose' Mode of Arrival: Ambulatory Source of Information: Patient Limitations: No Limitations Time Seen by Provider: 01/15/23 18:57 Description of Symptoms (Recalled from Triage Doc. by RN): PATIENT C/O FEVER, BODY ACHES, AND CHILLS SINCE THIS MORNING. RECENTLY EXPOSED TO COVID HEENT Symptoms (Recalled from RN notes): No Resp Symptoms (Recalled from RN notes): No Skin Symptoms (Recalled from RN notes): No MS Symptoms (Recalled from RN notes): No Functional Status (Recalled from RN notes): WNL History of Present Illness Provider Complaint: Patient states that her boyfriend is positive for COVID and this morning she started having fever, chills, and body aches States that she took a home COVID test and it was positive so she came in to get tested for work Related Data Home Medications Medication Instructions Recorded Confirmed levothyroxine 75 mcg tablet 75 mcg PO DAILY thyroid 06/06/22 12/20/22 fluticasone furoate 100 1 inh inhalation DAILY Asthma 10/28/22 12/20/22 mcg-vilanterol 25 mcg/dose inhalation powder (Breo Ellipta) Previous Rx's Medication Instructions Recorded albuterol sulfate 90 mcg/actuation 2 inh inhalation Q6H PRN shortness 10/19/22 aerosol inhaler of breath or wheezing 90 days #8.5 grams rivaroxaban 15 mg tablet (Xarelto) 15 mg PO BID 3 weeks #42 tabs 10/28/22 bisoprolol fumarate 10 mg tablet 10 mg PO DAILY #30 tabs 10/30/22 trazodone 100 mg tablet See Rx Instructions PO QHS 11/14/22 Insomnia #30 tabs lamotrigine 25 mg tablet (Lamictal) See Rx Instructions PO .COMPLEX 12/19/22 #42 tabs Allergies Allergy/AdvReac Type Severity Reaction Status Date / Time No Known A
== END 2023-01-15 19:08 | disposition home or self-care (01) ==
PROVIDERS: Emergency Provider Nurse Practitioner; PCP Family Medicine
DX: U07.1 COVID-19 (principal); R50.9 Fever, unspecified; J45.909 Unspecified asthma, uncomplicated; G47.00 Insomnia, unspecified; F41.1 Generalized anxiety disorder
CPT/HCPCS: 99212; 99213; G0463

== ENCOUNTER 2023-05-08 10:08 | Emergency (ER) | payer OTHER, SELFPAY ==
[2023-05-08 10:15] VITALS: BP 155/90; PULSE 86; RESP 20; TEMP 36.6; O2SAT 98; BMI 34.2
[2023-05-08 10:22] LABS: Coronavirus 19, PCR Not Detected (NotDetected); Influenza A, PCR Not Detected (NotDetected)
--- NOTE | 2023-05-08 10:29 | HMH.EDGENADL ---
Discharge Plan Disposition Patient Disposition: Home, Self-Care Prescriptions Prescriptions: No Action methocarbamol 500 mg tablet 500 mg PO prednisone 20 mg tablet 20 mg PO DAILY levothyroxine 75 mcg tablet 75 mcg PO DAILY albuterol sulfate 90 mcg/actuation HFA aerosol inhaler 2 inh inhalation Q6H PRN (Reason: shortness of breath or wheezing) 90 Days Qty: 8.5 1RF lamotrigine [Lamictal] 25 mg tablet See Rx Instructions PO .COMPLEX Qty: 60 1RF Rx Instructions: take 1 tablet for 2 weeks; take 2 tablets daily PO ; trazodone 100 mg tablet 100 mg PO QHS Qty: 30 1RF methylprednisolone 4 mg tablets,dose pack 4 mg PO PER PKG DIR Qty: 21 0RF diclofenac sodium [Voltaren Arthritis Pain] 1 % gel 4 g topical QID PRN (Reason: pain) 30 Days Qty: 100 2RF Rx Instructions: apply to ankle, foot; for foot includes sole/toes/top of foot as needed for pain norethindrone-e.estradiol-iron [Loestrin Fe 1.5/30 (28-Day)] 1.5 mg-30 mcg (21)/75 mg (7) tablet 1 tab PO DAILY Qty: 84 0RF bisoprolol fumarate 10 mg tablet 10 mg PO DAILY Qty: 30 2RF Referrals Follow up/Referrals: Derek Paiz MD [Primary Care Provider] - See instructions Activity Restrictions/Add. Instructions Additional Instructions/Restrictions: Call your family doctor to establish care for this visit to the emergency department and schedule follow-up within 48 hours to ensure improvement. If you have any worsening of your condition or any other concerning signs or symptoms, return to the emergency department or your primary care doctor for further evaluation. Clinical Impressions Clinical Impression: Acute viral syndrome, Influenza B Asthma Qualifiers: Asthma severity: mild Asthma persistence: intermittent Asthma complication type: with acute exacerbation Qualified Code(s): J45.21 - Mild intermittent asthma with (acute) exacerbation Discharge ED Provider: Bernard Neely General Adult HPI General Chief complaint: Upper Respiratory Infection Stated complaint: runny nose, cough sob Time Seen by Provider: 05/08/23 10:12 Mode of Arrival: Ambulatory Source of Information: Patient Limitations: No Limitations Description of Symptoms (Recalled from ER Triage Doc. by RN): pt to ed c/o runny nose, non-productive cough and congestion that started this morning. pt denies any pain or SOA. History of Present Illness HPI narrative: 23-year-old female with history of asthma presenting with viral syndrome. She states that she has numerous sick contacts who have upper respiratory symptoms, nausea, vomiting, diarrhea, or combination of these. Having symptoms 3 days prior and has not gotten any better. Has tried cold and flu medicine which helps a little bit. Has a cough that is nonproductive. Denies fevers, chills, nausea, vomiting, decreased p.o. intake, or any other concerns. Related Data Home Medications Medication Instructions Recorded Confirmed levothyroxine 75 mcg tablet 75 mcg PO DAILY thyroid 06/06/22 04/16/23 methocarbamol 500 mg tablet 500 mg PO 02/06/23 04/16/23 prednisone 20 mg tablet 20 mg PO DAILY 02/06/23 04/16/23 Previous Rx's Medication Instructions Recorded albuterol sulfate 90 mcg/actuation 2 inh inhalation Q6H PRN shortness 10/19/22 aerosol inhaler of breath or wheezing 90 days #8.5 grams norethindrone 1.5 mg-ethinyl 1 tab PO DAILY #84 tabs 03/09/23 estradiol 30 mcg(21)/iron 75 mg(7) tablet (Loestrin Fe 1.5/30 (28-Day)) bisoprolol fumarate 10 mg tablet 10 mg PO DAILY #30 tabs 03/27/23 lamotrigine 25 mg tablet (Lamictal) See Rx Instructions PO .COMPLEX 03/27/23 #60 tabs trazodone 100 mg tablet 100 mg PO QHS Insomnia #30 tabs 03/27/23 diclofenac sodium 1 % topical gel 4 g topical QID PRN pain 30 days 04/10/23 (Voltaren Arthritis Pain) #100 grams methylprednisolone 4 mg tablets in 4 mg PO PER PKG DIR Pain, swelling 04/10/23 a dose pack #21 tabs Allergies Allergy/AdvReac Type Severity Reaction Status Date / Time No Known Allergies Allergy Verified 04/10/23 10:20 [facility] Disclaimer: The information contained in this section may have been updated after the patient was seen, as this information can be updated by other users. Medical History Abnormal computed tomography angiography of heart Abnormal electrocardiography Allergic rhinitis Asthma Chest pain Dizziness Dyspnea Dyspnea on exertion Generalized anxiety disorder Insomnia Mild persistent asthma Palpitations Right arm pain Thrombus of right radial artery Surgical History History of cholecystectomy Hx of cardiac catheterization [place] teeth extracted Family History Other No significant family history Social History Smoking Status: Former smoker second hand exposure: No alcohol intake: never substance use type: denies use current occupational status: other Travel in the last 8 weeks: None number of children: 0 ROS Obtained: Yes All systems reviewed & no additional complaints except as documented Physical Exam General General appearance: alert and in no apparent distress Head Head exam: atraumatic and normocephalic Eye Eye exam: Present normal appearance, PERRL and EOMI ENT ENT exam: Present mucous membranes moist Neck Neck exam: Present normal inspection, full ROM and trachea midline Respiratory Respiratory exam: Present wheezes; Absent respiratory distress, stridor, accessory muscle use or prolonged expiratory phase Cardiovascular Cardiovascular exam: Present normal rhythm Abdominal Exam Abdominal exam: Present soft; Absent distention, tenderness, guarding, rebound or rigidity Extremities Exam Extremities exam: Absent edema Neurological Exam Neurological exam: Present alert, oriented X3, CN II-XII intact and normal gait; Absent motor sensory deficit Skin Skin exam: Present warm and dry; Absent diaphoresis or erythema Medical Decision Making Medical Records Medical records reviewed: Yes I reviewed the patient's medical records. Dimitris Inquiry Pt receiving controlled substance: No Dimitris was queried for this patient: No Vital Signs: 05/08/23 10:15 05/08/23 10:46 05/08/23 10:46 Temperature 97.9 F Temperature Source Oral Pulse Rate 84 80 Pulse Rate [Left Radial] 86 Respiratory Rate 20 Blood Pressure [Right Arm] 155/90 H Blood Pressure Mean [Right Arm] 111 02 Sat by Pulse Oximetry 98 Oxygen Delivery Method Room Air Lab Data Lab Results 05/08/23 10:12: SARS-CoV-2 (PCR) Not detected, Influenza A Untype (PCR) Not detected, Influenza Type B (PCR) Detected A Orders (Tests/Meds): ED MEDICATIONS Discontinued Medications Generic Name Dose Route Start Last Admin Trade Name Alpesh PRN Reason Stop Dose Admin Albuterol/Ipratropium 6 ml 05/08/23 10:29 05/08/23 10:46 Ipratropium/Albuterol 3 Ml Neb IH 05/08/23 10:30 6 ml ONCE ONE Administration Dexamethasone 10 mg 05/08/23 10:29 05/08/23 10:37 Dexamethasone 4mg Tablet PO 05/08/23 10:30 10 mg ONCE ONE Administration ORDERS Category Date Time Status Rapid PCR Covid and Flu A/B Stat Lab 05/08/23 10:12 Completed Medical Decision Narrative: 23-year-old female with history of asthma presenting with viral syndrome. She states that she has numerous sick contacts who have upper respiratory symptoms, nausea, vomiting, diarrhea, or combination of these. Having symptoms 3 days prior and has not gotten any better. Has tried cold and flu medicine which helps a little bit. Has a cough that is nonproductive. Denies fevers, chills, nausea, vomiting, decreased p.o. intake, or any other concerns. History obtained with patient. On arrival, patient hemodynamically stable, alert, oriented x4, appropriate, GCS 15, moving all extremities spontaneously, pupils equal and reactive to light. Full physical exam performed and significant for minimal end inspiratory wheezing bilaterally without focal breath sounds. Patient nontachypneic, normotensive, not requiring oxygen And overall well-appearing. Patient was given DuoNeb as well as Decadron p.o. for mild asthma exacerbation. Viral swab resulted in flu be positive On reevaluation, resting comfortably in bed. Given patient presentation, workup, history, this most likely represents acute viral syndrome and mild asthma exacerbation. Because patient at baseline without signs or symptoms of clinical decompensation, deemed appropriate for discharge. Results were relayed to patient who voiced understanding and were agreeable to outpatient management and follow up. At the time of discharge the patient was hemodynamically stable, tolerating PO, and mobilizing appropriately. Critical Care Critical Care Time Critical Care Time: No
[2023-05-08 10:30] VITALS: BP 134/86; PULSE 85; O2SAT 98
[2023-05-08] MEDS: DEXAMETHASONE 4MG TABLET 10 MG PO (10:37)
[2023-05-08 10:46] VITALS: PULSE 80; PULSE 84
[2023-05-08] MEDS: IPRATROPIUM/ALBUTEROL 3 ML NEB 6 ML IH (10:46)
[2023-05-08 10:50] LABS: Influenza B, PCR Detected (NotDetected)
[2023-05-08 11:06] VITALS: BP 132/81; PULSE 91; RESP 20; TEMP 36.6; O2SAT 97
== END 2023-05-08 11:07 | disposition home or self-care (01) ==
PROVIDERS: Emergency Provider Emergency Medicine; PCP Family Medicine
DX: J45.21 Mild intermittent asthma with (acute) exacerbation (principal); J10.1 Influenza due to other identified influenza virus with other respiratory manifestations; R05.9 Cough, unspecified; R09.81 Nasal congestion; Z87.891 Personal history of nicotine dependence
CPT/HCPCS: 87636; 99283

== ENCOUNTER 2023-07-20 10:00 | Outpatient (RCR) | payer OTHER, SELFPAY ==
--- NOTE | 2023-06-06 15:15 | HMH.PTOPEV ---
PT Outpatient Evaluation Rehab PT Outpatient Evaluation Start: 06/06/23 14:26 Freq: Status: Active Protocol: Document 06/06/23 14:27 [email or web address] (Rec: 06/06/23 15:15 [email or web address] [id number]) E-signed By Gadiel Soriano, PT Outpatient Therapy Subjective History Subjective History Pt. is a 23 year old female who presents to [facility] Outpatient Physical Therapy Services Services in [place] for the initial evaluation this date( 06/06/23) w/ c/o subacute and intermittent BLE(R>L) ankle/ft . P!, edema, and stiffness of insidious onset for a a few months now. Pt. denies any trauma as origination of symptomatic P!. However, pt. reports symptoms originated after she started working as a O[employer] at [employer]. 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 Pt. reports symptoms worsen w/ prolonged walking and standing while at work. Pt. reports noticing bumps over medial portion of ankle/ft. when symptoms ar at it's worse w/ activity. Pt. reports symptoms improved w/ resting, icing, and prescribed Meloxicam. Pt. denies having any recent diagnostic imaging, denies numbness/tingling into neither BLE digits. Pt. reports symptoms have worsened since she had steroid injections. Pt. RTMD in July. Current medications include Trazadone, Meloxicam, and Levothyroxine. PMH includes depression and anxiety disorders, asthma, hyperthyroidism, and cholecystectomy. New diagnosis of cancer in past 12 No months? Chief Complaint Pain,Stiff,Swelling Symptom Type Ache,Throb,Sharp,Dull,Stabbing Symptoms Relieved By Rest/Positioning,Ice, Prescription Meds Symptoms Aggravated By Standing,Physical Activity, Walking Prior Functional Limitations None Current Functional Limitations Standing,Recreation Activity, Walking Symptom Description Activity Dependent Level of pain today (0-10) 0 Pain scale - at its best (0-10) 0 Pain scale - at its worst (0-10) 6 Ankle/Foot Eval Gait Observation General Gait Pattern Observation No Deviations/Normal Assistive Device Ambulation Assistive Device None Palpation Tenderness bilateral Ankle/Foot Palpation Findings Tenderness Ankle/Foot Palpation Overall Comment grade 4 +TTP to post. tib. tendons and insertion point, ant. fibers deltoid ATF TTP negative PTF TTP negative CF TTP negative Deltoid ligament TTP positive ROM left Ankle/Foot Dorsiflexion w/Knee Extended +5 Active Range Motion (degrees) Ankle/Foot Dorsiflexion w/Knee Extended +1 Passive Range (degrees) Ankle/Foot Plantar Flexion Active Range 53 of Motion (degrees) Ankle/Foot Eversion Active Range of 23 Motion (degrees) Ankle/Foot Inversion Active Range of 37 Motion (degrees) Ankle/Foot ROM Limitations Soft Tissue Tightness,Muscle Weakness,Pain right Ankle/Foot Dorsiflexion w/Knee Extended +5 Active Range Motion (degrees) Ankle/Foot Dorsiflexion w/Knee Extended -5 Passive Range (degrees) Ankle/Foot Plantar Flexion Active Range 50 of Motion (degrees) Ankle/Foot Eversion Active Range of 19 Motion (degrees) Ankle/Foot Inversion Active Range of 36 Motion (degrees) Ankle/Foot ROM Limitations Soft Tissue Tightness,Muscle Weakness,Pain Accessory Movements Ankle Accessory Movements that Elicit Tibial Dorsal [place] Symptoms MMT left Ankle Dorsiflexion Strength Grade 4- Good- Ankle Plantarflexion Strength Grade 4 Good Foot Eversion Strength Grade 4- Good- Foot Inversion Strength Grade 4- Good- Ankle Dorsiflexors Muscle Tone Severe Hypertonicity Description right Ankle Dorsiflexion Strength Grade 3 Fair Ankle Plantarflexion Strength Grade 3 Fair Foot Eversion Strength Grade 3+ Fair+ Foot Inversion Strength Grade 3+ Fair+ Ankle Dorsiflexors Muscle Tone Severe Hypertonicity Description Special Tests Ankle Anterior Drawer Test Positive Left,Positive Right Ankle Posterior Drawer Test Positive Left,Positive Right Neuro tests Achilles Tendon (R) 2+ Achilles Tendon (L) 2+ normal sensation to monofilament Yes Outpatient Therapy Assessment Impairments Problems/Impairmments Palpation Tenderness,Impaired Range of Motion,Impaired Strength,Impaired Walking, Impaired Standing,Impaired Incline Stepping,Impaired Stepping on Uneven Surface, Impaired Recreational Activities,Impaired Work Activities,Increased Edema, Subjective C/O Pain,Impaired Self Care/Self Management Prognosis Rehab Potential Good Comment w/ HEP compliancy Clinical Impression Consistent with Diagnosis Yes Consistent with B/L(R>L) post. tib. tendinitis Short Term Goals Number of Weeks 2 Decreased Palpation Tenderness Yes: grade 1-2 +TTP to TTP assessment above Decrease Subjective C/O Pain Yes: worse:09/13 Patient to be Ind w/ HEP Yes [facility] Goals Number of Weeks 4 Decreased Palpation Tenderness Yes: grade 1 +TTP to TTP assessment above Increase Range of Motion Yes: BLE ankle A/PROM WNL grossly Increase Strength Yes: 4+ to 5/5 BLE ankle MMT scores grossly Increase Ability to Walk Yes Increase Ability to Stand Yes Improve Tolerance to Work Activities Yes Improve LEFI Score Yes Decrease Subjective C/O Pain Yes: worse:1-2/10 Improve Self Care/Self Management Yes Patient to be Ind w/ Advanced HEP Yes Outpatient Therapy Plan of Care Treatment Plan May Include Therapeutic Exercise Including Home Yes Exercise Program Manual Therapy Techniques Yes Neuromuscular Re-education Yes Therapeutic Activities to Return to Yes Previous Functional/Work Level Gait Training Yes ADL/Self Care Education Yes Dry Needling Yes Thermal Modalities Yes Electrical Stimulation Yes Ultrasound/Phonophoresis Yes Iontophoresis Yes Vasopneumatic Compression Pump Yes Massage Yes Eval/Re-Eval Yes Frequency Times per week 2 Duration Number of Weeks 4 Addendums This patient is a candidate for social No or vocational rehab? Patient/Guardian verbally acknowledges Yes understanding of treatment program and consents to further treatment? Patient/Guardian verbally acknowledges Yes understanding of diagnosis, prognosis and goals for treatment? Eval Complexity PT Charges 12778 - Low Complexity Shoulder/Elbow Eval Shoulder Objective Measurements Elbow Objective Measurements PHYSICIAN CERTIFICATION: I certify the specified therapy services for Stacey Mott are required, authorized, and reviewed every 30 days.
== END 2023-08-22 11:42 | disposition home or self-care (01) ==
LOC: PT 10:00
PROVIDERS: Visit Provider Podiatrist
DX: M79.671 Pain in right foot (principal); M79.672 Pain in left foot; G89.29 Other chronic pain
CPT/HCPCS: 97010; 97014; 97035; 97110; 97112; 97140; 97163; 97164; 97530; G0283

== ENCOUNTER 2023-08-21 12:27 | Emergency (ER) | payer OTHER, SELFPAY ==
--- NOTE | 2023-08-21 12:45 | ED_ITS ---
Discharge Plan Disposition Patient Disposition: Home, Self-Care Condition: Good Prescriptions Prescriptions: New ondansetron 4 mg Tablet,Disintegrating 4 mg PO Q8H PRN (Reason: Nausea) Qty: 9 0RF No Action levothyroxine 75 mcg tablet 75 mcg PO DAILY albuterol sulfate 90 mcg/actuation HFA aerosol inhaler 2 inh inhalation Q6H PRN (Reason: shortness of breath or wheezing) 90 Days Qty: 8.5 1RF Lo Loestrin Fe 1 mg-10 mcg (24)/10 mcg (2) tablet 1 tab PO DAILY Patient Comments: TAKE 1 TABLET BY MOUTH ONCE DAILY lamotrigine [Lamictal] 100 mg tablet 100 mg PO DAILY Qty: 30 1RF trazodone 100 mg tablet 100 mg PO QHS Qty: 30 1RF bisoprolol fumarate 10 mg tablet See Rx Instructions .ROUTE .COMPLEX Qty: 90 3RF Dose Instruction: Take 1 tablet by mouth once daily Rx Instructions: Take 1 tablet by mouth once daily meloxicam 15 mg tablet 15 mg PO ONCE Qty: 30 2RF Referrals Follow up/Referrals: Derek Paiz MD [Primary Care Provider] - See instructions Activity Restrictions/Add. Instructions Additional Instructions/Restrictions: Drink plenty of fluids. Take tylenol or ibuprofen for pain or fever. Take the medications as directed. Follow up with your regular doctor. 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 She has cramping but no continuous abdominal pain. Several of her family members has stomach viruses right now. Related Data Home Medications Medication Instructions Recorded Confirmed levothyroxine 75 mcg tablet 75 mcg PO DAILY thyroid 06/06/22 08/21/23 norethindrone 1 mg-ethinyl 1 tab PO DAILY 08/16/23 08/21/23 estradiol 10 mcg (24)-iron 10 mcg(2) tablet (Lo Loestrin Fe) Previous Rx's Medication Instructions Recorded albuterol sulfate 90 mcg/actuation 2 inh inhalation Q6H PRN shortness 10/19/22 aerosol inhaler of breath or wheezing 90 days #8.5 grams bisoprolol fumarate 10 mg tablet See Rx Instructions .Route 06/25/23 .COMPLEX #90 tabs lamotrigine 100 mg tablet 100 mg PO DAILY #30 tabs 07/09/23 (Lamictal) trazodone 100 mg tablet 100 mg PO QHS Insomnia #30 tabs 07/09/23 meloxicam 15 mg tablet 15 mg PO ONCE pain #30 tabs 08/08/23 ondansetron 4 mg disintegrating 4 mg PO Q8H PRN Nausea #9 tabs 08/21/23 tablet Allergies Allergy/AdvReac Type Severity Reaction Status Date / Time No Known Allergies Allergy Verified 08/21/23 13:01 [facility] Disclaimer: The information contained in this section may have been updated after the patient was seen, as this information can be updated by other users. Medical History Mild persistent asthma Dyspnea on exertion Asthma Allergic rhinitis Thrombus of right radial artery Right arm pain Abnormal computed tomography angiography of heart Insomnia Generalized anxiety disorder Dizziness Dyspnea Chest pain Abnormal electrocardiography Palpitations Surgical History Hx of cardiac catheterization [place] teeth extracted History of cholecystectomy Family History Other No significant family history Social History Smoking Status: Former smoker second hand exposure: No alcohol intake: never substance use type: denies use current occupational status: other Travel in the last 8 weeks: None number of children: 0 ROS Obtained: Yes All systems reviewed & no additional complaints except as documented Constitutional Constitutional: Denies chills, Denies fever(s) and Reports poor appetite ENT Ears, Nose, Mouth, and Throat: Denies dizziness and Denies sore throat Cardiovascular Cardiovascular: Denies dyspnea Respiratory Respiratory: Denies chest congestion, Denies cough and Denies dyspnea Gastrointestinal Gastrointestingal: Reports as per HPI, cramping, diarrhea, nausea and vomiting; Denies abdominal pain or hematochezia Genitourinary Female Genitourinary: Denies difficulty voiding, Denies dysuria, Denies hematuria, Denies urinary frequency, Denies urinary incontinence, Denies urinary hesitancy and Denies urinary urgency Musculoskeletal Musculoskeletal: Denies arthralgias Integumentary/Breasts Skin/Breast: Denies rash Neurologic Neurologic: Denies dizziness Physical Exam General General appearance: alert and in no apparent distress Head Head exam: atraumatic and normocephalic Eye Eye exam: Present normal appearance, PERRL and EOMI ENT ENT exam: Present normal exam, normal oropharynx, mucous membranes moist, TM's normal bilaterally and normal external ear exam Neck Neck exam: Present normal inspection, full ROM and trachea midline; Absent tenderness, meningismus or lymphadenopathy Chest Chest inspection: Present normal inspection and symmetric chest wall rise; Absent tenderness, rash or abscess Respiratory Respiratory exam: Present normal lung sounds bilaterally; Absent respiratory distress, wheezes or stridor Cardiovascular Cardiovascular exam: Present regular rate and normal rhythm; Absent irregular rhythm, systolic murmur, diastolic murmur or JVD Abdominal Exam Abdominal exam: Present soft and hyperactive bowel sounds; Absent distention, tenderness, guarding, rebound, rigidity, psoas sign, obturator sign, heel tap sign, Perez's sign, Rovsing's sign or tenderness at McBurney's Point Extremities Exam Extremities exam: Present normal inspection and full ROM; Absent tenderness Back Exam Back exam: Present normal inspection and full ROM; Absent tenderness, CVA tenderness (R) or CVA tenderness (L) Neurological Exam Neurological exam: Present alert, oriented X3 and CN II-XII intact Psychiatric Psychiatric exam: Present normal affect and normal mood Skin Skin exam: Present warm, dry, intact and normal color Lymphatic Lymphatic Findings: no adenopathy Medical Decision Making Medical Records Medical records reviewed: No I reviewed the patient's medical records. Dimitris Inquiry Pt receiving controlled substance: No
[2023-08-21 12:50] VITALS: BP 121/86; PULSE 85; RESP 18; TEMP 36.8; O2SAT 98; BMI 35.2
--- NOTE | 2023-08-21 13:25 | PC.NURSE ---
Sent rapid to lab via tube
[2023-08-21 13:27] VITALS: BP 121/86; PULSE 85; RESP 18; TEMP 36.8; O2SAT 98
[2023-08-21 13:39] LABS: Coronavirus 19, PCR Not Detected (NotDetected); Influenza A, PCR Not Detected (NotDetected); Influenza B, PCR Not Detected (NotDetected)
== END 2023-08-21 13:27 | disposition home or self-care (01) ==
PROVIDERS: Emergency Provider Nurse Practitioner Family; PCP Family Medicine
DX: A08.4 Viral intestinal infection, unspecified (principal); R11.2 Nausea with vomiting, unspecified; R19.7 Diarrhea, unspecified; R10.819 Abdominal tenderness, unspecified site; B34.9 Viral infection, unspecified
CPT/HCPCS: 87636; 99212; 99214; G0463

== ENCOUNTER 2023-08-22 22:25 | Emergency (ER) | payer OTHER, SELFPAY ==
--- NOTE | 2023-08-22 22:24 | ECG_ITS ---
APPROVED REPORT Exam: Resting ECG HR:132 bpm ECG Measurements Heart Rate 132 AXES MS 136 P 13 QRSd 86 QRS 55 QT 378 T 1 QTc 456 Conclusion SINUS TACHYCARDIA NONSPECIFIC ST & T-WAVE ABNORMALITY ABNORMAL RHYTHM ECG UNCONFIRMED REPORT Electronically signed by : Ciro Greer, 08/22/2023 22:50:45
[2023-08-22 22:26] VITALS: BP 125/86; PULSE 137; RESP 18; TEMP 37.4; O2SAT 98; BMI 35.2
--- NOTE | 2023-08-22 22:28 | [facility].EDGENADL ---
Discharge Plan Disposition Patient Disposition: Home, Self-Care Prescriptions Prescriptions: New promethazine 25 mg tablet 25 mg PO Q6HP PRN (Reason: nausea and vomiting) Qty: 14 0RF No Action levothyroxine 75 mcg tablet 75 mcg PO DAILY albuterol sulfate 90 mcg/actuation HFA aerosol inhaler 2 inh inhalation Q6H PRN (Reason: shortness of breath or wheezing) 90 Days Qty: 8.5 1RF Lo Loestrin Fe 1 mg-10 mcg (24)/10 mcg (2) tablet 1 tab PO DAILY Patient Comments: TAKE 1 TABLET BY MOUTH ONCE DAILY lamotrigine [Lamictal] 100 mg tablet 100 mg PO DAILY Qty: 30 1RF trazodone 100 mg tablet 100 mg PO QHS Qty: 30 1RF bisoprolol fumarate 10 mg tablet See Rx Instructions .ROUTE .COMPLEX Qty: 90 3RF Dose Instruction: Take 1 tablet by mouth once daily Rx Instructions: Take 1 tablet by mouth once daily meloxicam 15 mg tablet 15 mg PO ONCE Qty: 30 2RF ondansetron 4 mg Tablet,Disintegrating 4 mg PO Q8H PRN (Reason: Nausea) Qty: 9 0RF Referrals Follow up/Referrals: Provider,Referral, MD [Referring] - See instructions Activity Restrictions/Add. Instructions Additional Instructions/Restrictions: Call your family doctor to establish care for this visit to the emergency department and schedule follow-up within 48 hours to ensure improvement. If you have any worsening of your condition or any other concerning signs or symptoms, return to the emergency department or your primary care doctor for further evaluation. Clinical Impressions Clinical Impression: Nausea vomiting and diarrhea Discharge ED Provider: Bernard Neely General Adult HPI <Umer Greer MD - Last Filed: 08/22/23 22:31> General Chief complaint: Weakness Stated complaint: lethargy, syncope Time Seen by Provider: 08/22/23 22:26 History of Present Illness HPI narrative: Patient is a 23-year-old female who is here yesterday in the urgent treatment clinic for nausea vomiting diarrhea presents today with ongoing symptoms but profound weakness associated with them. She is accompanied by her boyfriend. She denies any significant abdominal pain no cough no respiratory symptoms no fevers. No blood in her stool or her vomit. She still has good urine output. Denies any significant past medical history. Related Data Home Medications Medication Instructions Recorded Confirmed levothyroxine 75 mcg tablet 75 mcg PO DAILY thyroid 06/06/22 08/21/23 norethindrone 1 mg-ethinyl 1 tab PO DAILY 08/16/23 08/21/23 estradiol 10 mcg (24)-iron 10 mcg(2) tablet (Lo Loestrin Fe) Previous Rx's Medication Instructions Recorded albuterol sulfate 90 mcg/actuation 2 inh inhalation Q6H PRN shortness 10/19/22 aerosol inhaler of breath or wheezing 90 days #8.5 grams bisoprolol fumarate 10 mg tablet See Rx Instructions .Route 06/25/23 .COMPLEX #90 tabs lamotrigine 100 mg tablet 100 mg PO DAILY #30 tabs 07/09/23 (Lamictal) trazodone 100 mg tablet 100 mg PO QHS Insomnia #30 tabs 07/09/23 meloxicam 15 mg tablet 15 mg PO ONCE pain #30 tabs 08/08/23 ondansetron 4 mg disintegrating 4 mg PO Q8H PRN Nausea #9 tabs 08/21/23 tablet promethazine 25 mg tablet 25 mg PO Q6HP PRN nausea and 08/23/23 vomiting #14 tabs Allergies Allergy/AdvReac Type Severity Reaction Status Date / Time No Known Allergies Allergy Verified 08/21/23 13:01 [facility] <Umer Greer MD - Last Filed: 08/22/23 22:31> [facility] Disclaimer: The information contained in this section may have been updated after the patient was seen, as this information can be updated by other users. Medical History Mild persistent asthma Dyspnea on exertion Asthma Allergic rhinitis Thrombus of right radial artery Right arm pain Abnormal computed tomography angiography of heart Insomnia Generalized anxiety disorder Dizziness Dyspnea Chest pain Abnormal electrocardiography Palpitations Surgical History Hx of cardiac catheterization [place] teeth extracted History of cholecystectomy Family History Other No significant family history Social History Smoking Status: Never smoker second hand exposure: No alcohol intake: never substance use type: denies use current occupational status: other Travel in the last 8 weeks: None number of children: 0 <Umer Greer MD - Last Filed: 08/22/23 22:31> ROS Obtained: Yes All systems reviewed & no additional complaints except as documented Physical Exam <Umer Greer MD - Last Filed: 08/22/23 22:31> General General appearance: lethargic Respiratory Respiratory exam: Present normal lung sounds bilaterally; Absent respiratory distress Cardiovascular Cardiovascular exam: Present normal rhythm and tachycardia Abdominal Exam Abdominal exam: Present soft; Absent distention or tenderness Neurological Exam Neurological exam: Present alert, oriented X3, CN II-XII intact and normal gait; Absent motor sensory deficit Medical Decision Making <Umer Greer MD - Last Filed: 08/22/23 22:31> Dimitris Inquiry Pt receiving controlled substance: No Vital Signs: 08/22/23 22:26 Temperature 99.3 F Temperature Source Oral Pulse Rate [Left Radial] 137 H Respiratory Rate 18 Blood Pressure [Right Arm] 125/86 Blood Pressure Mean [Right Arm] 99 Blood Pressure Source [Right Arm] Automatic Cuff Blood Pressure Position [Right Arm] Sitting 02 Sat by Pulse Oximetry 98 Oxygen Delivery Method Room Air Lab Data Lab Results 08/22/23 22:25: WBC 14.1 H, RBC 5.24, Hgb 14.5, Hct 45.3, MCV 86.5, MCH 27.7, MCHC 32.0, RDW 15.2, Plt Count 315, MPV 7.9, Neut % (Auto) 89.4 H, Lymph % (Auto) 6.3 L, C[place] % (Auto) 2.5, Eos % (Auto) 1.5, Baso % (Auto) 0.4, Neut # (Auto) 12.6 H, Lymph # (Auto) 0.9, Cascade # (Auto) 0.4, Eos # (Auto) 0.2, Baso # (Auto) 0.1, Total Counted 100, Neutrophils % (Manual) 87 H, Lymphocytes % (Manual) 9 L, Monocytes % (Manual) 4, Platelet Estimate Normal, Hypochromasia 1+, Sodium 139, Potassium 4.1, Chloride 109 H, Carbon Dioxide 23, Anion Gap 11.1, BUN 13, Creatinine 0.70, Estimated Creat Clear 187, Estimated GFR 102, Est GFR ( Amer) 123, Glucose 118 H, Calcium 8.7, Phosphorus 2.6, Magnesium 2.0, Total Bilirubin 0.6, AST 48 H, ALT 37, Alkaline Phosphatase 100, Total Protein 7.5, Albumin 4.2, Globulin 3.3 H, Albumin/Globulin Ratio 1.3 08/22/23 22:25 08/22/23 22:25 Orders (Tests/Meds): ED MEDICATIONS Discontinued Medications Generic Name Dose Route Start Last Admin Trade Name Freq PRN Reason Stop Dose Admin Lactated Ringer's 1,000 mls @ 999 mls/hr 08/22/23 22:26 08/22/23 22:30 Lactated Ringer's 1000 Ml Bag IV 08/22/23 23:26 999 mls/hr .Q1H1M ONE Administration Lactated Ringer's 1,000 mls @ 999 mls/hr 08/22/23 22:30 08/22/23 22:44 Lactated Ringer's 1000 Ml Bag IV 08/22/23 23:30 999 mls/hr .Q1H1M DEJON Administration ORDERS Category Date Time Status CBC w/Auto Diff [Complete Blood Count Auto Diff] Stat Lab 08/22/23 22:25 Completed CMP [Comprehensive Metabolic Panel] Stat Lab 08/22/23 22:25 Completed Magnesium Stat Lab 08/22/23 22:25 Completed Phosphorous Stat Lab 08/22/23 22:25 Completed ECG Data Tracing #1: I reviewed this ECG and interpreted as documented below: Ventricular rate of 132 sinus tachycardia normal axis no acute ischemic changes noted no significant conduction abnormalities noted. Medical Decision Narrative: 23-year-old female presents today with nausea vomiting diarrhea significant weakness being lethargic and tachycardic. Abdominal exam is benign I suspect she is just significantly dehydrated we will give 2 L of IV fluids check basic blood work and reassess. Care will be transitioned to Dr. Bernard Neely at 11 PM for final evaluation and management. <Bernard Neely MD - Last Filed: 08/23/23 00:26> Vital Signs: 08/22/23 22:26 Temperature 99.3 F Temperature Source Oral Pulse Rate [Left Radial] 137 H Respiratory Rate 18 Blood Pressure [Right Arm] 125/86 Blood Pressure Mean [Right Arm] 99 Blood Pressure Source [Right Arm] Automatic Cuff Blood Pressure Position [Right Arm] Sitting 02 Sat by Pulse Oximetry 98 Oxygen Delivery Method Room Air Lab Data Lab Results 08/22/23 22:25: WBC 14.1 H, RBC 5.24, Hgb 14.5, Hct 45.3, MCV 86.5, MCH 27.7, MCHC 32.0, RDW 15.2, Plt Count 315, MPV 7.9, Neut % (Auto) 89.4 H, Lymph % (Auto) 6.3 L, Cascade % (Auto) 2.5, Eos % (Auto) 1.5, Baso % (Auto) 0.4, Neut # (Auto) 12.6 H, Lymph # (Auto) 0.9, Cascade # (Auto) 0.4, Eos # (Auto) 0.2, Baso # (Auto) 0.1, Total Counted 100, Neutrophils % (Manual) 87 H, Lymphocytes % (Manual) 9 L, Monocytes % (Manual) 4, Platelet Estimate Normal, Hypochromasia 1+, Sodium 139, Potassium 4.1, Chloride 109 H, Carbon Dioxide 23, Anion Gap 11.1, BUN 13, Creatinine 0.70, Estimated Creat Clear 187, Estimated GFR 102, Est GFR ( Amer) 123, Glucose 118 H, Calcium 8.7, Phosphorus 2.6, Magnesium 2.0, Total Bilirubin 0.6, AST 48 H, ALT 37, Alkaline Phosphatase 100, Total Protein 7.5, Albumin 4.2, Globulin 3.3 H, Albumin/Globulin Ratio 1.3 Orders (Tests/Meds): ED MEDICATIONS Discontinued Medications Generic Name Dose Route Start Last Admin Trade Name Alpesh PRN Reason Stop Dose Admin Lactated Ringer's 1,000 mls @ 999 mls/hr 08/22/23 22:26 08/22/23 22:30 Lactated Ringer's 1000 Ml Bag IV 08/22/23 23:26 999 mls/hr .Q1H1M ONE Administration Lactated Ringer's 1,000 mls @ 999 mls/hr 08/22/23 22:30 08/22/23 22:44 Lactated Ringer's 1000 Ml Bag IV 08/22/23 23:30 999 mls/hr .Q1H1M DEJON Administration ORDERS Category Date Time Status CBC w/Auto Diff [Complete Blood Count Auto Diff] Stat Lab 08/22/23 22:25 Completed CMP [Comprehensive Metabolic Panel] Stat Lab 08/22/23 22:25 Completed Magnesium Stat Lab 08/22/23 22:25 Completed Phosphorous Stat Lab 08/22/23 22:25 Completed Medical Decision Narrative: 23-year-old female presents today with nausea vomiting diarrhea significant weakness being lethargic and tachycardic. Abdominal exam is benign I suspect she is just significantly dehydrated we will give 2 L of IV fluids check basic blood work and reassess. Care will be transitioned to Dr. Bernard Neely at 11 PM for final evaluation and management. Florinda: I assumed primary responsibility for this patient after signout from previous physician. 2 L fluid were given, patient ambulated to bathroom without issue. Feeling better. She is not vomiting here in the emergency department. Very well-appearing, I feel she is appropriate for home-going. Because patient at baseline without signs or symptoms of clinical decompensation, deemed appropriate for discharge. Results were relayed to patient who voiced understanding and were agreeable to outpatient management and follow up. I discussed my clinical impression with patient and answered all questions. At this time, the evidence for any other entities in the differential is insufficient to warrant any further testing or ED observation. This was explained as well. Advisory was given that persistent or worsening symptoms require further evaluation. I confirmed the understanding of this discussion. Critical Care <Umer Greer MD - Last Filed: 08/22/23 22:31> Critical Care Time Critical Care Time: No
[2023-08-22] MEDS: LACTATED RINGERS 1000ML 1,000 ML 999 ML IV ×2 (22:30→22:44)
[2023-08-22 22:35] LABS: Basophils # 0.1 K/mm3 (0-0.2); Basophils % 0.4 % (0.1-2.0); Eosinophils # 0.2 K/mm3 (0.0-0.4); Eosinophils % 1.5 % (0.1-12.0); Hematocrit 45.3 % (37.0-47.0); Hemoglobin 14.5 g/dL (12.2-16.2); Lymphocytes # 0.9 K/mm3 (0.7-4.5); Lymphocytes % 6.3 % (10-50); Mean Corpuscular Hemoglobin 27.7 pg (27.0-31.2); Mean Corpuscular Volume 86.5 fl (81-99); Mean Platelet Volume 7.9 fl (7.4-10.4); Monocytes # 0.4 K/mm3 (0.1-1.0); Monocytes % 2.5 % (1.7-9.3); Neutrophils # 12.6 K/mm3 (1.8-7.8); Neutrophils % 89.4 % (37.0-80.0); Platelet Count 315 K/mm3 (142-424); Red Blood Count 5.24 M/mm3 (4.20-5.40); Red Cell Distribution Width 15.2 % (11.5-17.5); White Blood Count 14.1 K/mm3 (4.8-10.8)
[2023-08-22 22:37] LABS: MANUAL DIFFERENTIAL MANUAL DIFFERENTIAL (MANUAL DIFF)
[2023-08-22 22:41] LABS: Chloride 109 mmol/L (98-107); Sodium 139 mmol/L (136-145)
[2023-08-22 22:42] LABS: Potassium 4.1 mmoL/L (3.5-5.1)
[2023-08-22 22:44] LABS: Alanine Aminotransferase 37 U/L (12-78); Albumin Level 4.2 g/dl (3.5-5.0); Albumin/Globulin Ratio 1.3 (1.1-1.8); Alkaline Phosphatase 100 U/L (38-126); Aspartate Amino Transferase 48 U/L (14-36); Bilirubin,Total 0.6 mg/dl (0.2-1.3); Blood Urea Nitrogen 13 mg/dl (7-17); Creatinine Clearance Estimated 187 mL/min (50-200); Estimated Glomerular Filt Rate 102 ml/min (>60); GFR (African American) 123 ML/MIN (>60); Globulin 3.3 g/dL (1.3-3.2); Phosphorous 2.6 mg/dl (2.5-4.5); Total Protein,Serum 7.5 g/dl (6.3-8.2)
[2023-08-22 22:45] LABS: Calcium 8.7 mg/dl (8.4-10.2); Glucose 118 mg/dl (74-100)
[2023-08-22 22:51] LABS: Hypochromasia 1+; Lymphocytes % 9 % (10-50); Monocytes % 4 % (2-9); Neutrophils % 87 % (42-76); Platelet Estimate Normal; Total Cells Counted 100
[2023-08-22 23:01] LABS: Anion Gap 11.1 mEq/L (5-15); Carbon Dioxide 23 mmol/L (22.0-30.0)
--- NOTE | 2023-08-23 00:21 | PC.NURSE ---
pt was assisted to bathroom with standby assist. pt tolerated well.
[2023-08-23 00:29] VITALS: BP 124/78; PULSE 98; RESP 20; TEMP 37.2; O2SAT 99
== END 2023-08-23 00:35 | disposition home or self-care (01) ==
LOC: ER 22:35 → COUGHCL 22:38 → ER 22:39
PROVIDERS: Student in an Organized Health Care Education/Training Program; Emergency Provider Emergency Medicine; PCP Internal Medicine Adolescent Medicine
DX: R11.2 Nausea with vomiting, unspecified (principal); R19.7 Diarrhea, unspecified; R00.0 Tachycardia, unspecified
CPT/HCPCS: 80053; 83735; 84100; 85007; 85025; 93005; 96360; 99284

== ENCOUNTER 2023-10-19 18:08 | Emergency (ER) | payer OTHER, SELFPAY ==
[2023-10-19 18:15] VITALS: BP 134/87; PULSE 85; RESP 18; TEMP 36.6; O2SAT 96; BMI 35.9
--- NOTE | 2023-10-19 18:30 | EXP.UTC ---
Discharge Plan Disposition Patient Disposition: Home, Self-Care Condition: Good Prescriptions Prescriptions: New methylprednisolone [Medrol (Bossman)] 4 mg tablets,dose pack 4 mg PO DIRECTED Qty: 21 0RF cyclobenzaprine 10 mg tablet 10 mg PO Q8H PRN (Reason: muscle spasm) Qty: 30 0RF lidocaine [Lidoderm] 5 % adhesive patch,medicated 1 patch topical DAILY Qty: 30 0RF Rx Instructions: leave on most painful area for up to 12 hrs No Action levothyroxine 75 mcg tablet 75 mcg PO DAILY albuterol sulfate 90 mcg/actuation HFA aerosol inhaler 2 inh inhalation Q6H PRN (Reason: shortness of breath or wheezing) 90 Days Qty: 8.5 1RF Lo Loestrin Fe 1 mg-10 mcg (24)/10 mcg (2) tablet 1 tab PO DAILY Patient Comments: TAKE 1 TABLET BY MOUTH ONCE DAILY lamotrigine [Lamictal] 100 mg tablet 100 mg PO DAILY Qty: 30 1RF trazodone 100 mg tablet 100 mg PO QHS Qty: 30 1RF bisoprolol fumarate 10 mg tablet See Rx Instructions .ROUTE .COMPLEX Qty: 90 3RF Dose Instruction: Take 1 tablet by mouth once daily Rx Instructions: Take 1 tablet by mouth once daily meloxicam 15 mg tablet 15 mg PO ONCE Qty: 30 2RF Referrals Follow up/Referrals: Derek Paiz MD [Primary Care Provider] - See instructions Activity Restrictions/Add. Instructions Additional Instructions/Restrictions: Follow up with PCP Clinical Impressions Clinical Impression: Low back strain Instructions Patient Instructions: DI for Low Back Pain Discharge ED Provider: Camila Zhang [facility] [place] H[place] General Stated complaint: WC 10/19/23 Lower back injury Mode of Arrival: Ambulatory Source of Information: Patient Limitations: No Limitations Time Seen by Provider: 10/19/23 19:16 Description of Symptoms (Recalled from Triage Doc. by RN): Pt was at work and states she lifted an over size order . She has pain in her lower back. 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 Has gotten worse as time has gone on. Hurts in mid low back. Does not radiate down legs. Onset (ago): hour(s) (2) Location: back Radiation: non-radiation Relieving factors: none Exacerbating factors: movement Associated symptoms: denies other symptoms Treatments prior to arrival: none Related Data Home Medications Medication Instructions Recorded Confirmed levothyroxine 75 mcg tablet 75 mcg PO DAILY thyroid 06/06/22 10/19/23 norethindrone 1 mg-ethinyl 1 tab PO DAILY 08/16/23 10/19/23 estradiol 10 mcg (24)-iron 10 mcg(2) tablet (Lo Loestrin Fe) Previous Rx's Medication Instructions Recorded albuterol sulfate 90 mcg/actuation 2 inh inhalation Q6H PRN shortness 10/19/22 aerosol inhaler of breath or wheezing 90 days #8.5 grams bisoprolol fumarate 10 mg tablet See Rx Instructions .Route 06/25/23 .COMPLEX #90 tabs meloxicam 15 mg tablet 15 mg PO ONCE pain #30 tabs 08/08/23 lamotrigine 100 mg tablet 100 mg PO DAILY #30 tabs 09/10/23 (Lamictal) trazodone 100 mg tablet 100 mg PO QHS Insomnia #30 tabs 09/10/23 cyclobenzaprine 10 mg tablet 10 mg PO Q8H PRN muscle spasm #30 10/19/23 tabs lidocaine 5 % topical patch 1 patch topical DAILY #30 ea 10/19/23 (Lidoderm) methylprednisolone 4 mg tablets in 4 mg PO DIRECTED #21 tabs 10/19/23 a dose pack (Medrol (Bossman)) Allergies Allergy/AdvReac Type Severity Reaction Status Date / Time No Known Allergies Allergy Verified 10/19/23 18:27 Worker's Comp Is this a Worker's Comp case?: Yes Is this an H Worker's Comp?: No Is this a [place] Worker's Comp?: No [facility] Disclaimer: The information contained in this section may have been updated after the patient was seen, as this information can be updated by other users. Medical History Mild persistent asthma Dyspnea on exertion Asthma Allergic rhinitis Thrombus of right radial artery Right arm pain Abnormal computed tomography angiography of heart Insomnia Generalized anxiety disorder Dizziness Dyspnea Chest pain Abnormal electrocardiography Palpitations Surgical History Hx of cardiac catheterization [place] teeth extracted History of cholecystectomy Family History Other No significant family history Social History Smoking Status: Never smoker second hand exposure: No alcohol intake: never substance use type: denies use current occupational status: other Travel in the last 8 weeks: None number of children: 0 ROS Obtained: Yes All systems reviewed & no additional complaints except as documented Musculoskeletal Musculoskeletal: Reports back pain Physical Exam General General appearance: alert and in no apparent distress Head Head exam: atraumatic, normocephalic and normal inspection Eye Eye exam: Present normal appearance, PERRL and EOMI ENT ENT exam: Present normal exam, normal oropharynx, mucous membranes moist, TM's normal bilaterally and normal external ear exam Neck Neck exam: Present normal inspection, full ROM and trachea midline; Absent meningismus or lymphadenopathy Chest Chest inspection: Present normal inspection and symmetric chest wall rise; Absent tenderness Respiratory Respiratory exam: Present normal lung sounds bilaterally; Absent respiratory distress Cardiovascular Cardiovascular exam: Present regular rate and normal rhythm; Absent JVD Abdominal Exam Abdominal exam: Present soft and normal bowel sounds; Absent distention, tenderness or guarding Extremities Exam Extremities exam: Present normal inspection, full ROM and normal capillary refill; Absent calf tenderness Back Exam Back exam: Present normal inspection and tenderness (mid lumbar tenderness to palpation) Neurological Exam Neurological exam: Present alert and oriented X3 Psychiatric Psychiatric exam: Present normal affect and normal mood Skin Skin exam: Present warm, dry, intact and normal color Lymphatic Lymphatic Findings: no adenopathy Medical Decision Making Dimitris Inquiry Pt receiving controlled substance: No Vital Signs: 10/19/23 18:15 Temperature 97.9 F Temperature Source Oral Pulse Rate [Right Radial] 85 Respiratory Rate 18 Blood Pressure [Right Arm] 134/87 Blood Pressure Mean [Right Arm] 102 Blood Pressure Source [Right Arm] Automatic Cuff Blood Pressure Position [Right Arm] Sitting 02 Sat by Pulse Oximetry 96 Oxygen Delivery Method Room Air Radiology Data #1: Image(s): L-Spine Image Reviewed: Yes I reviewed the patient's radiology results Preliminary Findings: Normal/NAD and No Fracture Seen
--- NOTE | 2023-10-19 18:48 | XR_ITS ---
PROCEDURE INFORMATION: Exam: XR Lumbosacral Spine Exam date and time: 10/19/2023 6:47 PM Age: 23 years old Clinical indication: Low back pain; Additional info: Hurt lower back at work lifting TECHNIQUE: Imaging protocol: Radiologic exam of the lumbosacral spine. Views: 2 or 3 views. COMPARISON: CT ABDOMEN PELVIS W CON 05/14/2022 2:53 AM FINDINGS: Bones/joints: Slight thoracolumbar levoscoliosis could be positional. No acute fracture. Normal alignment. No significant degenerative changes. Soft tissues: Unremarkable. IMPRESSION: No acute findings.
[2023-10-19] MEDS: KETOROLAC 60MG/2ML VIAL 60 MG IM (19:23)
[2023-10-19] MEDS: ORPHENADRINE CITRATE 60MG/2ML VIAL 60 MG IM (19:23)
[2023-10-19 20:09] VITALS: BP 134/87; PULSE 85; RESP 18; TEMP 36.6; O2SAT 96
== END 2023-10-19 20:08 | disposition home or self-care (01) ==
PROVIDERS: Emergency Provider Physician Assistant; PCP Family Medicine
DX: S39.012A Strain of muscle, fascia and tendon of lower back, initial encounter (principal); X50.0XXA Overexertion from strenuous movement or load, initial encounter
CPT/HCPCS: 72100; 96372; 99212; 99214; G0463; J1885; J2360

== ENCOUNTER 2023-12-07 11:49 | Emergency (ER) | payer OTHER, SELFPAY ==
[2023-12-07 12:15] VITALS: BP 120/82; PULSE 69; RESP 20; TEMP 37.4; O2SAT 99; BMI 34.9
--- NOTE | 2023-12-07 13:13 | ED_ITS ---
Discharge Plan Disposition Patient Disposition: Home, Self-Care Condition: Good Prescriptions Prescriptions: New polyethylene glycol 3350 [Miralax] 17 gram/dose powder 17 g PO DAILY Qty: 850 0RF Rx Instructions: Take once cap full with 8 ounces of fluid. No Action ketoconazole 2 % shampoo 1 applic TOPICAL WEEKLY Patient Comments: WASH SCALP EVERY OTHER DAY, AT LEAST TWICE A WEEK. LET SIT FOR 5 MINUTES BEFORE RINSING. FOLLOW WITH REGULAR SHAMPOO tretinoin [Retin-A] 0.025 % cream 1 applic TOPICAL DAILY Patient Comments: APPLY A PEA SIZE AMOUNT TO FACE AT BEDTIME AND FOLLOW WITH MOISTURIZER clindamycin-benzoyl peroxide 1-5 % gel 1 applic TOPICAL DAILY Patient Comments: APPLY A THIN LAYER TO FACE EVERY MORNING trazodone 100 mg tablet 100 mg PO HS Patient Comments: TAKE 1 TABLET BY MOUTH EVERY DAY AT BEDTIME FOR INSOMNIA ketoconazole 2 % cream 1 applic TOPICAL BID Patient Comments: APPLY A THIN LATER TO AFFECTED AREAS ON FACE TWICE DAILY clobetasol 0.05 % solution 1 applic TOPICAL HS Patient Comments: APPLY TO SCALP NIGHTLY FOR UP TO THREE WEEKS. STOP FOR ONE WEEK. REPEAT NEEDED lamotrigine 100 mg tablet 100 mg PO DAILY Patient Comments: TAKE 1 TABLET BY MOUTH ONCE DAILY Referrals Follow up/Referrals: Derek Paiz MD [Primary Care Provider] - See instructions Activity Restrictions/Add. Instructions Additional Instructions/Restrictions: Tonight do 2 doses of Miralax with 16 ounces of fluid. Follow up with primary care provider. If symptoms persist or worsen, return to the clinic. Clinical Impressions Clinical Impression: Constipation Qualifiers: Constipation type: unspecified constipation type Qualified Code(s): K59.00 - Constipation, unspecified Hemorrhoid Qualifiers: Hemorrhoid type: unspecified Qualified Code(s): K64.9 - Unspecified hemorrhoids Instructions Patient Instructions: DI for Constipation, Increased Dietary Fiber May Improve Constipation Conditions With Pelvic Nael, DI for Hemorrhoids Print Language Print Language: Armenian Discharge ED Provider: Khushboo Gasca [facility] General Stated complaint: lower abd pain Mode of Arrival: Ambulatory Source of Information: Patient Limitations: No Limitations Time Seen by Provider: 12/07/23 13:13 Description of Symptoms (Recalled from Triage Doc. by RN): PATIENT C/O LOWER ABDOMINAL PAIN AND NAUSEA SINCE YESTERDAY, AND STATES SHE HAD BLOOD IN HER STOOL THIS MORNING HEENT Symptoms (Recalled from RN notes): No Resp Symptoms (Recalled from RN notes): No Skin Symptoms (Recalled from RN notes): No MS Symptoms (Recalled from RN notes): No Functional Status (Recalled from RN notes): WNL History of Present Illness Provider Complaint: Pt reports that she has had a lot of lower abdominal pain with nausea for 2 days and some blood in her stool this morning. She reports that she usually only has a bowel movement once or twice a week. She denies burning with urination. Related Data Home Medications ?Medication ?Instructions ?Recorded ?Confirmed clindamycin 1 %-benzoyl peroxide 5 1 applic topical DAILY 12/07/23 12/07/23 % topical gel clobetasol 0.05 % scalp solution 1 applic topical HS 12/07/23 12/07/23 ketoconazole 2 % shampoo 1 applic topical WEEKLY 12/07/23 12/07/23 ketoconazole 2 % topical cream 1 applic topical BID 12/07/23 12/07/23 lamotrigine 100 mg tablet 100 mg PO DAILY 12/07/23 12/07/23 trazodone 100 mg tablet 100 mg PO HS 12/07/23 12/07/23 tretinoin 0.025 % topical cream 1 applic topical DAILY 12/07/23 12/07/23 (Retin-A) Previous Rx's ?Medication ?Instructions ?Recorded polyethylene glycol 3350 17 17 g PO DAILY #850 grams 12/07/23 gram/dose oral powder (Miralax) Allergies Allergy/AdvReac Type Severity Reaction Status Date / Time No Known Allergies Allergy Verified 11/13/23 10:59 Worker's Comp Is this a Worker's Comp case?: No [facility] Disclaimer: The information contained in this section may have been updated after the patient was seen, as this information can be updated by other users. Medical History Mild persistent asthma Dyspnea on exertion Asthma Allergic rhinitis Thrombus of right radial artery Right arm pain Abnormal computed tomography angiography of heart Insomnia Generalized anxiety disorder Dizziness Dyspnea Chest pain Abnormal electrocardiography Palpitations Surgical History Hx of cardiac catheterization [place] teeth extracted History of cholecystectomy Family History Other No significant family history Social History Smoking Status: Never smoker second hand exposure: No alcohol intake: never substance use type: denies use current occupational status: other Travel in the last 8 weeks: None number of children: 0 ROS Obtained: Yes All systems reviewed & no additional complaints except as documented Constitutional Constitutional: Reports system reviewed and no additional complaints, except as documented Eyes Eyes: Reports system reviewed and no additional complaints, except as documented ENT Ears, Nose, Mouth, and Throat: Reports system reviewed and no additional complaints, except as documented Cardiovascular Cardiovascular: Reports system reviewed and no additional complaints, except as documented Respiratory Respiratory: Reports system reviewed and no additional complaints, except as documented Gastrointestinal Gastrointestingal: Reports system reviewed and no additional complaints, except as documented, abdominal pain, cramping and hematochezia Genitourinary Female Genitourinary: Reports system reviewed and no additional complaints, except as documented Musculoskeletal Musculoskeletal: Reports system reviewed and no additional complaints, except as documented Integumentary/Breasts Skin/Breast: Reports system reviewed and no additional complaints, except as documented Neurologic Neurologic: Reports system reviewed and no additional complaints, except as documented Endocrine Endocrine: Reports system reviewed and no additional complaints, except as documented Hematologic/Lymphatic Henatologic/Lymphatic: Reports system reviewed and no additional complaints, except as documented Allergic/Immunologic Allergic/Immunologic: Reports system reviewed and no additional complaints, except as documented Physical Exam General General appearance: alert and in no apparent distress Head Head exam: atraumatic and normocephalic Eye Eye exam: Present normal appearance ENT ENT exam: Present normal exam Neck Neck exam: Present normal inspection; Absent lymphadenopathy Chest Chest inspection: Present normal inspection and symmetric chest wall rise Respiratory Respiratory exam: Present normal lung sounds bilaterally Cardiovascular Cardiovascular exam: Present regular rate, normal rhythm and normal heart sounds Abdominal Exam Abdominal exam: Present distention, tenderness and hypoactive bowel sounds Abdominal tenderness: Present diffuse, mild and moderate Extremities Exam Extremities exam: Present normal inspection Back Exam Back exam: Present normal inspection Neurological Exam Neurological exam: Present alert and oriented X3 Psychiatric Psychiatric exam: Present normal affect and normal mood Skin Skin exam: Present warm, dry and intact Lymphatic Lymphatic Findings: no adenopathy Other Other exam information: rectal exam shows internal hemorrhoid noted. Medical Decision Making Dimitris Inquiry Pt receiving controlled substance: No Dimitris was queried for this patient: No Vital Signs: 12/07/23 12:15 Temperature 99.3 F Temperature Source Oral Pulse Rate [Left Brachial] 69 Respiratory Rate 20 Blood Pressure [Left Arm] 120/82 Blood Pressure Mean [Left Arm] 94 Blood Pressure Source [Left Arm] Automatic Cuff Blood Pressure Position [Left Arm] Sitting 02 Sat by Pulse Oximetry 99 Oxygen Delivery Method Room Air
[2023-12-07 13:26] LABS: Apearance,Urine Clear (Clear); Bilirubin,Urine Negative (Negative); Blood, Urine Negative (Negative); Color,Urine Yellow (Yellow); Glucose,Urine (UA) Negative (Negative); Ketones,Urine Negative (Negative); PH,Urine 5.5 (5.0-8.5); Protein,Urine Negative (Negative); Specific Gravity, Urine 1.025 (1.005-1.030); UTC Leukocyte Esterase,Urine Negative (Negative); UTC Nitrate,Urine Negative (Negative); UTC Pregnancy Test, Urine Negative (Negative); Urobilinogen,Urine 0.2 EU/dl (0.2)
[2023-12-07 13:51] LABS: Occult Blood,Stool Negative (Negative)
[2023-12-07 13:54] VITALS: BP 120/82; PULSE 69; RESP 20; TEMP 37.4; O2SAT 99
== END 2023-12-07 13:57 | disposition home or self-care (01) ==
PROVIDERS: Emergency Provider Nurse Practitioner Family; PCP Family Medicine
DX: R10.30 Lower abdominal pain, unspecified (principal); K59.00 Constipation, unspecified; K64.9 Unspecified hemorrhoids; R11.0 Nausea
CPT/HCPCS: 81003; 81025; 82272; 99212; 99214; G0328; G0463

== ENCOUNTER 2024-05-26 09:29 | Outpatient (CLI) | payer BC, SELFPAY ==
--- NOTE | 2024-05-26 09:31 | US_ITS ---
FINAL REPORT CLINICAL HISTORY: DISORDER OF THYROID FINDINGS: THYROID ULTRASOUND: The thyroid gland is diffusely inhomogeneous, without definite focal nodules identified. The right lobe of the thyroid gland measures 4.2 cm in sagittal length, the left lobe of the thyroid gland measures 4.75 cm in sagittal length. The isthmus measures 4.1 mm in thickness. IMPRESSION: Diffusely inhomogeneous thyroid gland without a definite focal nodule identified. This is consistent in appearance with a TI-RADS category 1 thyroid gland. Reviewed, Interpreted and Dictated by Chan Baker MD Transcribed by Neda Mesa Authenticated and [facility]
== END 2024-05-26 23:59 | disposition home or self-care (01) ==
LOC: RAD 09:29
PROVIDERS: PCP Family Medicine; Visit Provider Nurse Practitioner Family
DX: E07.9 Disorder of thyroid, unspecified (principal)
CPT/HCPCS: 76536

== ENCOUNTER 2024-07-18 12:15 | Outpatient (CLI) | payer BC, SELFPAY ==
[2024-07-18 13:28] LABS: HCG,Quantitative < 2 mIU/ml (0-5.42)
[2024-07-19 08:20] LABS: Progesterone 1.8 ng/mL (.)
== END 2024-07-18 23:59 | disposition home or self-care (01) ==
LOC: LAB 12:16
PROVIDERS: PCP Nurse Practitioner Family; Visit Provider Obstetrics & Gynecology
DX: Z32.02 Encounter for pregnancy test, result negative (principal); N92.6 Irregular menstruation, unspecified
CPT/HCPCS: 36415; 84144; 84702

== ENCOUNTER 2024-08-15 22:24 | Emergency (ER) | payer BC, SELFPAY ==
[2024-08-15 22:31] VITALS: BP 144/93; PULSE 111; RESP 16; TEMP 36.8; O2SAT 96; BMI 30.2
--- NOTE | 2024-08-15 22:35 | XR_ITS ---
PROCEDURE INFORMATION: Exam: XR Left Hand Exam date and time: 08/15/2024 10:50 PM Age: 24 years old Clinical indication: Pain; Finger(s); Left; Additional info: Thenar eminence pain/swelling after hyperextension TECHNIQUE: Imaging protocol: Radiologic exam of the left hand. Views: 3 or more views. COMPARISON: No relevant prior studies available. FINDINGS: Bones/joints: Normal. Soft tissues: Thenar eminence prominence. No air collection. No radiopaque foreign body. IMPRESSION: Nonspecific soft tissue prominence along the thenar eminence. No acute radiographic osseous findings identified.
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
[2024-08-15 23:17] VITALS: BP 128/74; PULSE 74; RESP 18; TEMP 36.6; O2SAT 98
== END 2024-08-15 23:25 | disposition home or self-care (01) ==
PROVIDERS: Emergency Provider Emergency Medicine; PCP Nurse Practitioner Family
DX: S69.92XA Unspecified injury of left wrist, hand and finger(s), initial encounter (principal); X50.1XXA Overexertion from prolonged static or awkward postures, initial encounter
CPT/HCPCS: 99283; 73130